=== PATIENT | female | born 1975 | race Caucasian/White ===

== ENCOUNTER → 2021-08-12 09:12 | Outpatient (BNV) | payer MEDICAID, SELFPAY | PROVIDERS: PCP Student in an Organized Health Care Education/Training Program; Visit Provider Internal Medicine Medical Oncology | DX: D50.9 Iron deficiency anemia, unspecified (principal) | CPT/HCPCS: 99203; 99213 ==

== ENCOUNTER 2021-08-22 08:55 | Outpatient (REF) | payer MEDICAID, SELFPAY | END 2021-08-22 08:56 | disposition home or self-care (01) | LOC: HO.MDS 08:55 | PROVIDERS: PCP Student in an Organized Health Care Education/Training Program; Visit Provider Internal Medicine Medical Oncology | DX: D50.9 Iron deficiency anemia, unspecified (principal) | CPT/HCPCS: 96365; 96366; J1200; J1750; Q0163 ==

== ENCOUNTER 2024-02-10 10:10 | Outpatient (REF) | payer MEDICAID, SELFPAY ==
--- NOTE | ~2024-02-10 | XR_ITS ---
EXAMINATION: XR FOOT, RIGHT CLINICAL INFORMATION: Pain in right ankle and joints of foot. COMPARISON: None available. TECHNIQUE: AP, lateral, and oblique views of the right foot. FINDINGS: Postsurgical changes with metallic staple in the proximal aspect of the first proximal phalanx as well as bowing deformity of first proximal phalanx. Advanced degenerative changes with hypertrophic change and joint space narrowing particularly along the medial aspect of first metatarsophalangeal joint. Flattening along the medial aspect of first metatarsal head, possibly postsurgical in nature. Moderate degenerative changes in the second toe PIP joint. XR/XR foot RT min 3V IMPRESSION: 1. Postsurgical changes as well as bowing deformity of first proximal phalanx. Advanced degenerative changes with hypertrophic change and joint space narrowing particularly along the medial aspect of first metatarsophalangeal joint. Flattening along the medial aspect of first metatarsal head, likely postsurgical in nature. 2. Moderate degenerative changes in the second toe PIP joint.
== END 2024-02-10 10:11 | disposition home or self-care (01) ==
LOC: HO.HOSX 10:10
PROVIDERS: Visit Provider Physical Medicine & Rehabilitation
DX: S93.421A Sprain of deltoid ligament of right ankle, initial encounter (principal)
CPT/HCPCS: 73630; 99202

== ENCOUNTER 2024-02-10 10:14 | Outpatient (AMB) | payer MEDICAID, SELFPAY ==
--- NOTE | 2024-02-10 10:31 | A.OFFVIS_ITS ---
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 States she has been having pain in her ankle since September 2023. No injury she can recall. Pain is mainly on her medial and lateral aspect of ankle. Also complaining of s welling after 2 hours of being on her feet. This pain is making her walk funny and is limiting her from doing her daily activities. Patient referred by her PCP Dr Jabari De Jesus. Denies numbness or tingling however he is experiencing a burning sensation around her ankle. Patient states she prescribed medication for high cholesterol but doesnt recall medication name. Pattern Fitter Required: Yes Allergies codeine [CODEINE] Allergy (Unknown, Unverified 02/10/24 10:36) SHAKING fruit Adverse Reaction (Intermediate, Uncoded 02/10/24 10:36) Swelling Medication List - Last Reconciled 02/10/24 by Chrissy Grijalva MD levothyroxine 1 tab PO DAILY lisinopril 1 tab PO DAILY loratadine (Claritin) 10 mg PO DAILY ursodiol 1 tab PO TID HPI HPI Comments History of Present Illness Details Last September 2023, medial ankle pain, swelling. Thought overuse from being on her feet during holidays. Pain worsened though became more burning. Limited ROM on ankle when walking. After 2 hours, severe pain, burning, swelling. Starts to drag the foot. Burning numbness. No DM. No back pain. Treatment done so far: physical therapy - 10 sessions, no improvement History of right foot fracture 13 years old. History of bunionectomy more than 10 years ago. [facility] Medical History (Updated 02/10/24 @ 10:52 by Chrissy Grijalva MD) Bunion of unspecified foot Surgical History S/P ear surgery Previous section Family History Mother Diabetes High blood pressure Father Diabetes Heart attack Social History (Updated 02/10/24 @ 10:39 by Rosina Johnson [facility]) Household Members: Spouse, Family and Children Housing: Apartment Are you a primary pediatric acute care unit nurse to a significant other at home: No (mother) Do you presently have visiting nurse or other home services: No Alcohol intake: never Patient Tobacco Use Status: Never used Tobacco service: No Current occupational status: unemployed 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 MSK: Swollen and tender around right medial malleolus. Non tender on tibialis anterior tendon, achilles tendon, lateral malleolus, plantar fascia. No ankle instability. Strength is 5/5 in all muscle groups tested. No increased tone noted. Neurological: Neurologic examination of the upper and lower extremities was nonfocal with intact sensation, muscle stretch reflexes and without focal motor deficits . Benjamin?s negative bilaterally. Babinski was down going bilaterally. Clonus was negative. Gait is non-antalgic without loss of balance. Patient was able to stand on heel and toe with support. Results Reviewed Results Reviewed: I independently reviewed the results of the following: X-ray done in the office showed chronic fracture right 1st metatarsal, postsurgical changes from bunionectomy Assessment & Plan Assessment & Plan (1) Sprain of right medial ankle joint: Code(s): S93.421A - Sprain of deltoid ligament of right ankle, initial encounter Qualifiers: Encounter type: initial encounter Qualified Code(s): S93.421A - Sprain of deltoid ligament of right ankle, initial encounter Plan Right medial ankle sprain that is still showing ongoing inflammation despite therapy. Patient had undergone adequate conservative management including PT without improvement of condition. It would be reasonable to obtain further imaging such as MRI. An MRI would help rule out any serious condition, guide treatment and assess prognosis for recovery. Specifically ruling out occult fracture. Fow now, she can wear a boot for walking, if will be walking for 2 hours or more. In between, to wear compression sock. Ice and elevate. Recommended naproxen gel but she already tried at home without relief. Can try lidocaine 4% icyhot roll on, up to QID prn. Discussed instructions and side effects. Assessment and plan discussed with patient, and patient was agreeable. All questions were answered thoroughly. Follow-up after MRI. Chrissy Grijalva MD, JOSÉ MIGUEL Board Certified, [place] [employer] Physical [employer] and Rehabilitation (ABPMR) Board Certified, [place] Board of Electrodiagnostic Medicine (ABEM) Orders: Orders MR ankle RT wo con Today S93.421A - Sprain of deltoid ligament of right ankle, initial encounter Coding Level of Care Code New Pt Level 4 (49544) Diagnoses Sprain of right medial ankle joint, initial encounter S93.421A Encounter type: initial encounter
[2024-02-10 10:34] VITALS: BMI 32.9
== END 2024-02-10 10:57 | disposition home or self-care (01) ==
PROVIDERS: PCP Student in an Organized Health Care Education/Training Program; Visit Provider Physical Medicine & Rehabilitation
DX: S93.421A Sprain of deltoid ligament of right ankle, initial encounter (principal)
CPT/HCPCS: 99204

== ENCOUNTER 2024-02-11 10:32 | Outpatient (REF) | payer MEDICAID, SELFPAY ==
[2024-02-11 14:53] LABS: MANUAL DIFF FLAG NO
[2024-02-11 14:58] LABS: Basophils Percent Auto 0.7 % (0-2); Eosinophils Absolute Auto 0.3 X10*3/uL (0.0-0.4); Eosinophils Percent Auto 7.3 % (0-4); Hemoglobin 10.3 g/dl (12.0-16.0); Imm Gran Abs Auto 0.01 X10*3/uL (0.00-0.03); Imm Gran Pct Auto 0.2 % (0.0-0.4); Lymphocytes Absolute Auto 1.4 X10*3/uL (1.2-4.9); Lymphocytes Percent Auto 30.7 % (20-40); Mean Corpuscular HGB Conc 32.2 g/dl (31.0-35.0); Mean Corpuscular Hemoglobin 26.9 pg (27.0-33.0); Mean Corpuscular Volume 83.6 fL (80.0-98.0); Mean Platelet Volume 10.4 fL (9.4-12.3); Monocytes Absolute Auto 0.5 X10*3/uL (0.1-1.2); Monocytes Percent Auto 11.8 % (2-11); Neutrophils Absolute Auto 2.2 x10*3/uL (2.0-8.3); Neutrophils Percent Auto 49.3 % (45-73); Platelet Count 304 X10*3/uL (160-400); Red Blood Count 3.83 X10*6/uL (4.20-5.50); Red Cell Distribution Width 13.8 % (11.0-16.0); White Blood Count 4.4 X10*3/uL (4.8-10.8)
[2024-02-11 15:06] LABS: INTERNATIONAL NORM RATIO 0.9 (0.9-1.1); Prothrombin Time 11.1 SEC (11.1-13.3)
[2024-02-11 15:22] LABS: Alanine Aminotransferase 35 U/L (0-31); Albumin Level 3.6 g/dL (3.5-5.0); Alkaline Phosphatase 228 U/L (39-117); Anion Gap 10 (12-20); Aspartate Amino Transferase 29 U/L (5-31); Bilirubin Total 0.4 mg/dL (0.0-1.0); Blood Urea Nitrogen 17 mg/dL (9-16); Calcium 8.8 mg/dL (8.4-10.2); Carbon Dioxide 26 mmol/L (22-29); Chloride 104 mmol/L (96-108); Estimated Glomerular Filt Rate > 60; Glucose Random 90 mg/dL (60-115); Potassium 3.9 mmol/L (3.3-5.1); Sodium 136 mmol/L (135-145); Total Protein 7.8 g/dL (6.5-8.0)
[2024-02-11 15:30] LABS: TSH reflex Free T4 0.44 uIU/mL (0.32-4.0)
== END 2024-02-11 10:33 | disposition home or self-care (01) ==
LOC: HO.CHCLDS 10:32
PROVIDERS: Visit Provider Family Medicine
DX: Z01.818 Encounter for other preprocedural examination (principal)
CPT/HCPCS: 36415; 80053; 84443; 85025; 85610

== ENCOUNTER → 2024-02-16 11:06 | Outpatient (REF) | payer MEDICAID, SELFPAY ==
--- NOTE | 2024-02-16 11:16 | ECG_ITS ---
Test Reason : PRE OP Z01.818 Blood Pressure : / mmHG Vent. Rate : 071 BPM Atrial Rate : 071 BPM P-R Int : 134 ms QRS Dur : 086 ms QT Int : 406 ms P-R-T Axes : 000 028 039 degrees QTc Int : 441 ms Normal sinus rhythm Normal ECG No previous ECGs available Referred By: Mariaa Up Electronically Signed By:RICKY SMITH
== END ==
LOC: HO.CARD 11:06
PROVIDERS: PCP Student in an Organized Health Care Education/Training Program; Visit Provider Family Medicine
DX: Z01.818 Encounter for other preprocedural examination (principal)
CPT/HCPCS: 93005

== ENCOUNTER → 2024-02-16 11:16 | Outpatient (BNV) | payer MEDICAID, SELFPAY | PROVIDERS: PCP Student in an Organized Health Care Education/Training Program; Visit Provider Internal Medicine | DX: Z01.810 Encounter for preprocedural cardiovascular examination (principal) | CPT/HCPCS: 93010 ==

== ENCOUNTER 2024-03-23 15:26 | Outpatient (REF) | payer MEDICAID, SELFPAY ==
[2024-03-23 17:27] LABS: MANUAL DIFF FLAG NO
[2024-03-23 17:35] LABS: Basophils Percent Auto 0.4 % (0-2); Eosinophils Absolute Auto 0.1 X10*3/uL (0.0-0.4); Eosinophils Percent Auto 1.1 % (0-4); Hematocrit 38.6 % (37.0-47.0); Imm Gran Abs Auto 0.02 X10*3/uL (0.00-0.03); Imm Gran Pct Auto 0.3 % (0.0-0.4); Lymphocytes Absolute Auto 1.6 X10*3/uL (1.2-4.9); Lymphocytes Percent Auto 21.7 % (20-40); Mean Corpuscular HGB Conc 31.1 g/dl (31.0-35.0); Mean Corpuscular Volume 83.7 fL (80.0-98.0); Mean Platelet Volume 10.8 fL (9.4-12.3); Monocytes Absolute Auto 0.5 X10*3/uL (0.1-1.2); Monocytes Percent Auto 7.1 % (2-11); Neutrophils Percent Auto 69.4 % (45-73); Platelet Count 372 X10*3/uL (160-400); Red Blood Count 4.61 X10*6/uL (4.20-5.50); Red Cell Distribution Width 13.4 % (11.0-16.0); White Blood Count 7.2 X10*3/uL (4.8-10.8)
[2024-03-23 18:10] LABS: Cholesterol 256 mg/dL (<200); HDL Cholesterol 80 mg/dL (>40); Iron 123 mcg/dL (30-160); LDL Cholesterol Calculated 156 mg/dL (<100); Percent Iron Saturation 28 % (15-50); Total Iron Binding Capacity 447 mcg/dL (228-428); Triglycerides 103 mg/dL (<150); Unsaturated Iron Binding 324 ug/dL
[2024-03-23 18:16] LABS: Ferritin 22 ng/mL (10-250)
[2024-03-23 18:31] LABS: Folate 5.2 ng/mL (> or = 4.0); Vitamin B12 508 pg/mL (200-900)
== END 2024-03-23 15:27 | disposition home or self-care (01) ==
LOC: HO.CHCLDS 15:26
PROVIDERS: Visit Provider Pediatrics
DX: D64.9 Anemia, unspecified (principal)
CPT/HCPCS: 36415; 80061; 82607; 82728; 82746; 83540; 85025

== ENCOUNTER 2024-04-17 10:38 | Outpatient (REF) | payer MEDICAID, SELFPAY ==
--- NOTE | ~2024-04-17 | MR_ITS ---
EXAMINATION: MR ANKLE WITHOUT CONTRAST, RIGHT CLINICAL INFORMATION: Medial-sided right ankle pain. Evaluate for occult fracture. Deltoid ligament sprain. COMPARISON: None available. TECHNIQUE: MRI of the ankle was performed using routine sequences on a high-field scanner. FINDINGS: BONE AND ARTICULAR CARTILAGE: Posterior tibial plafond articular cartilage thinning with areas of full-thickness loss and subchondral cystic change. Small marginal osteophytes. No talar osteochondral lesion. Mild patchy marrow edema within the inferior aspect of the anterior calcaneal process, which could represent stress reactions versus osseous contusions. No fracture. Similar patchy marrow edema within the plantar aspect of the navicula. Normal tarsal alignment. No concerning lytic or blastic osseous lesion. ACHILLES TENDON: Mild thickening of the distal Achilles tendon with minimally increased intrasubstance T2 signal consistent chronic tendinosis. No measurable tear. OTHER TENDONS: Fluid within the posterior tibialis tendon sheath and flexor digitorum tendon sheath, consistent with tenosynovitis. Thickening and mild heterogeneity of the distal posterior tibialis tendon consistent with chronic tendinosis. No transverse tendon tear or tendon retraction. LIGAMENTS: No edema adjacent to the medial or lateral ligaments to suggest acute ligament injury. JOINT FLUID AND SOFT TISSUES: Small tibiotalar, subtalar, and talonavicular joint effusions. Circumferential subcutaneous edema. No soft tissue mass or organized fluid collection. PLANTAR FASCIA: Intact. SINUS TARSI AND TARSAL TUNNEL: Patent. MR/MR ankle RT wo con IMPRESSION: 1. Mild patchy marrow edema within the inferior aspect of the anterior process of the calcaneus as well as within the plantar aspect of the navicula. Findings could represent stress reactions versus osseous contusions. No associated fracture line. 2. Mild tibiotalar osteoarthritis. Small tibiotalar, subtalar, and talonavicular joint effusions. 3. Posterior tibialis and flexor digitorum tenosynovitis with chronic distal posterior tibialis tendinosis. No transverse tendon tear or tendon retraction. 4. Mild distal Achilles tendinosis without a measurable tear. 5. Circumferential subcutaneous edema.
== END 2024-04-17 10:39 | disposition home or self-care (01) ==
LOC: HO.MRI 10:38
PROVIDERS: PCP Student in an Organized Health Care Education/Training Program; Visit Provider Physical Medicine & Rehabilitation
DX: S93.421A Sprain of deltoid ligament of right ankle, initial encounter (principal)
CPT/HCPCS: 73721

== ENCOUNTER 2024-11-08 13:02 | Outpatient (AMB) | payer MEDICAID, SELFPAY ==
[2024-11-08 13:05] VITALS: BP 132/64; PULSE 78; O2SAT 98; BMI 35.5
--- NOTE | 2024-11-08 13:05 | MHC.OFFVIS ---
Vital Signs 11/08/24 13:05 Height 5 ft 4 in Weight 206 lb 12.697 oz BMI 35.5 BP 132/64 Blood Pressure Location Rt brachial Position Sitting Pulse 78 Pulse Source Pulse Oximeter Pulse Oximetry (%) 98 Oxygen Delivery Method Room Air Intake Visit Reasons: Colonoscopy consult -- Per Dr. Mota Intake Note: NEW PATIENT Reason; [place] scrn Prior hx of colo/egd? 5 years ago via [facility] per pt. Concerns/Questions? No significant concerns per pt. Liquefied Petroleum Gasfitter Required: Yes Liquefied Petroleum Gasfitter Services: Liquefied Petroleum Gasfitter Present Liquefied Petroleum Gasfitter Name: Tay [id number] Information Interpreted: non-clinical & clinical Accompanied by: Self / Same As Patient Allergies apple Allergy (Intermediate, Verified 11/08/24 13:12) Swelling avocado Allergy (Unknown, Verified 11/08/24 13:12) Unknown banana Allergy (Unknown, Verified 11/08/24 13:12) Unknown codeine [CODEINE] Allergy (Unknown, Verified 11/08/24 13:12) SHAKING HPI HPI Colonoscopy consult -- Per Dr. Mota: Details: 49 year old? female with past medical history of microcytic hypochromic anemia, primary biliary cholangitis onset in 2020, hypothyroidism, obesity is here today for pre colonoscopy screening.? Patient referred by her rn advanced. Last colonoscopy 5 years ago. History of PBC, has not followed up with GI in quite some time. Patient denies abdominal pain or discomfort. Reports occasional postprandial abdominal bloating and constipation. Patient denies any family history of CRC.? Denies history of difficulty with sedation or anesthesia in the past.? Negative for history of sleep apnea.? Denies any history of cardiac, renal, pulmonary, or hepatic disease.?? No history of infectious? diseases like hepatitis A, B, C, HIV or tuberculosis.? Patient is not on any anticoagulation [facility] Medical History (Updated 11/08/24 @ 13:46 [facility] Family history of diabetes mellitus Hypothyroidism (09/16/12) Primary biliary cholangitis (07/08/21) Right heart failure (09/16/12) Bunion of unspecified foot Surgical History S/P ear surgery Previous section Family History Mother Diabetes High blood pressure Father Diabetes Heart attack Social History Household Members: Spouse, Family and Children Housing: Apartment Are you a primary tire care manager to a significant other at home: No (mother) Do you presently have visiting nurse or other home services: No Alcohol intake: never Patient Tobacco Use Status: Never used Tobacco service: No Current occupational status: unemployed 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 Review of Systems Const Denies weight gain and Denies weight loss ENT Reports no additional complaints, Denies dysphagia and Denies odynophagia Card Reports no additional complaints Resp Reports no additional complaints GI Denies abdominal pain, Denies belching, Denies melena, Denies bloating, Denies change in bowel habits, Reports constipation, Denies dysphagia, Denies excessive flatus, Denies dyspepsia, Denies heartburn, Denies diarrhea, Denies loose stools, Denies nausea, Denies odynophagia and Denies vomiting Reports no additional complaints Musc Reports no additional complaints Neuro Reports no additional complaints Psych Reports no additional complaints Endo Reports no additional complaints Physical Exam Vital Signs: Last Vital Signs Pulse 78 11/08/24 13:05 BP 132/64 11/08/24 13:05 Pulse Ox 98 11/08/24 13:05 Oxygen Delivery Method Room Air 11/08/24 13:05 BMI result Body Mass Index 35.5 Const General: healthy appearing and no acute distress Nutritional Appearance: obese Orientation/consciousness: patient oriented x3 Resp Effort & Inspection: normal respiratory effort, able to speak in complete sentences, no tracheal deviation and symmetric chest movement Auscultation: clear to auscultation bilaterally Cardio Rate: regular rate GI Inspection: Yes normal to inspection and No distended Palpation (GI): Soft to palpation, not firm, nontender and No hepatosplenomegaly present Auscultation: normal bowel sounds General: Yes no CVA tenderness Back/Spine/Pelvis Back: no CVA tenderness Skin General skin exam: elasticity normal, turgor normal and dry skin Neuro General: patient oriented x3 Psych Appearance: grossly normal Mental Status: mental status grossly normal Assessment & Plan Assessment & Plan (1) Screen for colon cancer: Code(s): Z12.11 - Encounter for screening for malignant neoplasm of colon (2) Family history of diabetes mellitus: Code(s): Z83.3 - Family history of diabetes mellitus Category: Medical (3) Primary biliary cholangitis: Onset Date: 07/08/21 Code(s): K74.3 - Primary biliary cirrhosis Category: Medical (4) Microcytic hypochromic anemia: Code(s): D50.9 - Iron deficiency anemia, unspecified Category: Medical Plan Patient denies any cardiac or respiratory symptoms.? Denies any issues with anesthesia in the past.? Denies any history of sleep apnea.? No history infectious diseases in the past or present.? Not on any anticoagulation therapy.? No family or personal history of colon cancer.? History of PBC, has not followed up with GI for quite some time. Will order liver profile, liver fibrosis panel as well as ultrasound with elastography to evaluate. Patient is currently on ursodiol can continue that. New refill sent. Patient is on Wegovy for weight loss. Patient denies melena, hematochezia, unintentional weight loss or ribbon like stools.? Discussed at length the pre-procedure,? prep, diet & medications as well as what to expect prior, during and after the procedure.?? Stressed the importance of good bowel prep.? Recommended the use of Vaseline or Calmoseptine OTC & baby wipes with bowel movements to promote comfort.? ?Patient verbalizes understanding and agrees to plan of care.? She was given the opportunity to ask questions and all questions answered.? We will see her after the procedure.? Orders: Orders Liver Panel 11/08/24 R74.01 - Elevation of levels of liver transaminase levels US abdomen comp w elastography 11/08/24 R79.89 - Other specified abnormal findings of blood chemistry Liver Fibrosis Pnl 11/08/24 K76.0 - Fatty (change of) liver, not elsewhere classified Hemoglobin A1c 11/08/24 Z83.3 - Family history of diabetes mellitus Medications: New polyethylene glycol 3350 (Miralax) As directed by gastroenterology department at [facility] 238 grams PO ONCE 238 grams 0RF Z12.11 - Encounter for screening for malignant neoplasm of colon bisacodyl (Dulcolax (bisacodyl)) 10 mg (2 x 5 mg) PO BEDTIME 180 tabs 4RF Coding Level of Care Code New Pt Level 4 (97060) Diagnoses Screen for colon cancer Z12.11 Family history of diabetes mellitus Z83.3 Primary biliary cholangitis K74.3 Microcytic hypochromic anemia D50.9 Time Spent (min) 45 Comment 30 minutes spent with patient and additional 15 minutes spent reviewing her records
== END 2024-11-08 14:21 | disposition home or self-care (01) ==
PROVIDERS: PCP Student in an Organized Health Care Education/Training Program; Visit Provider Nurse Practitioner Family
DX: Z01.818 Encounter for other preprocedural examination (principal); Z12.11 Encounter for screening for malignant neoplasm of colon; K74.3 Primary biliary cirrhosis; D50.9 Iron deficiency anemia, unspecified
CPT/HCPCS: 99202

== ENCOUNTER 2024-11-08 13:02 | Outpatient (REF) | payer MEDICAID, SELFPAY ==
[2024-11-08 14:39] LABS: Estimated Average Glucose 117 mg/dL; Hemoglobin A1C 104.9518 umol/L; Hemoglobin A1c % 5.7 % (<6.0); Total Hemoglobin (HGBA1C) 2741.6035 umol/L
[2024-11-08 15:00] LABS: Alanine Aminotransferase 58 U/L (0-31); Albumin Level 3.8 g/dL (3.5-5.0); Alkaline Phosphatase 250 U/L (39-117); Aspartate Amino Transferase 48 U/L (5-31); Bilirubin Direct 0.2 mg/dL (0.0-0.5); Bilirubin Total 0.4 mg/dL (0.0-1.0)
[2024-11-14 17:28] LABS: FIB-ALT 43 U/L (6-29); FIB-Alpha-2-Macroglobulin 193 mg/dL (106-279); FIB-Apolipoprotein A1 186 mg/dL (101-198); FIB-GGT 43 U/L (3-70); FIB-Haptoglobin 193 mg/dL (43-212); FIB-Total Bilirubin 0.4 mg/dL (0.2-1.2); Liver Fibrosis Score 0.09; Liver Fibrosis Stage F0; Nec Inflam Act Grade A0-A1; Nec Inflam Act Score 0.19; Reference ID 5285368
== END 2024-11-08 13:03 | disposition home or self-care (01) ==
LOC: HO.LAB 13:02
PROVIDERS: PCP Student in an Organized Health Care Education/Training Program; Visit Provider Nurse Practitioner Family
DX: R74.01 Elevation of levels of liver transaminase levels (principal); K76.0 Fatty (change of) liver, not elsewhere classified; Z83.3 Family history of diabetes mellitus; K74.01 Hepatic fibrosis, early fibrosis; Z12.11 Encounter for screening for malignant neoplasm of colon
CPT/HCPCS: 36415; 80076; 81596; 83036; 99212

== ENCOUNTER 2024-11-22 09:18 | Outpatient (REF) | payer MEDICAID, SELFPAY ==
--- NOTE | ~2024-11-22 | US_ITS ---
EXAMINATION: US ABDOMEN COMPLETE WITH LIVER ELASTOGRAPHY HISTORY: R79.89 - Other specified abnormal findings of blood chemistry TECHNIQUE: Real-time grayscale ultrasound imaging of the abdomen was performed and images were reviewed. COMPARISON: There are no prior studies for comparison. FINDINGS: Liver: The liver is normal in size and demonstrates homogeneous echotexture. No focal mass or intrahepatic biliary ductal dilatation is identified. There is normal hepatopedal flow in the portal vein. Ultrasound elastography of the liver was performed with 10 separate measurements of the liver parenchyma with the patient in the supine position. Measurements were obtained approximately 2 cm below Anthony's capsule and perpendicular to the capsule. Images are of satisfactory quality. The median shear wave velocity is 1.40 m/s. The interquartile range/median (IQR/median) is 0.26. Gallbladder and biliary tree: The gallbladder is unremarkable, without evidence of calculi, wall thickening, or pericholecystic fluid. There is no sonographic Hewitt sign. The common bile duct is normal in caliber measuring 3 mm. Kidneys: The right kidney measures 11.4 cm in length. The left kidney measures 12.3 cm in length. The kidneys are unremarkable, without evidence of masses, hydronephrosis, or calculi. Pancreas: The pancreatic head, neck, and body are unremarkable. The pancreatic tail is obscured by bowel gas. Spleen: The spleen is normal in size and contour, measuring 10.1 cm in length. Abdominal aorta and inferior vena cava: The visualized portions of the abdominal aorta and inferior vena cava are normal in caliber. There is no free fluid in the abdomen. US/US abdomen comp w elastography IMPRESSION: Unremarkable abdominal ultrasound. The median shear wave velocity is 1.40 m/s, corresponding to a median liver stiffness of 5.9 kPa. The IQR/median value is 0.26. This is indicative of a poor quality data set, and the estimated liver stiffness may be unreliable. Findings are indicative of a low elastography value which rules out advanced chronic liver disease in asymptomatic patients. REFERENCE: Society of Radiologists in Ultrasound Liver Stiffness Thresholds (2020): LIVER STIFFNESS THRESHOLDS: *Shear wave velocity less than 1.3 m/s (Liver Stiffness equal or less than 5 kPa): High probability of being normal. *Shear wave velocity less than 1.7 m/s (Liver Stiffness less than 9 kPa): In the absence of other known clinical signs, rules out compensated advanced chronic liver disease. *Shear wave velocity between 1.7-2.1 m/s (Liver Stiffness 9-13 kPa): Suggestive of compensated advanced chronic liver disease but need further test for confirmation. *Shear wave velocity between 2.1-2.4 m/s (Liver Stiffness 13-17 kPa): Rules in compensated advanced chronic liver disease. *Shear wave velocity greater than 2.4 m/s (Liver Stiffness over 17 kPa): Suggestive of clinically significant portal hypertension. QUALITY OF DATA SET: *IQR/Median value equal or less than 0.15 implies a quality data set. *IQR/Median value over 0.15 implies a poor quality data set. SIGNIFICANT CHANGE FROM PRIOR EXAM: Significant change if liver stiffness measurement is 10% or greater from prior exam. OTHER CONSIDERATIONS: The stage of liver fibrosis may be overestimated in the setting of acute hepatitis, liver inflammation, elevated liver function tests, hepatic vascular congestion, obstructive cholestasis, non-fasting state, and infiltrative diseases such as amyloidosis and lymphoma. In some patients with NAFLD, the liver stiffness thresholds for compensated advanced chronic liver disease may be lower. In causes other than viral hepatitis and NAFLD, liver stiffness thresholds are not well established. Electronically signed by: Danny Caicedo MD 11/23/2024 07:36 [facility]
== END 2024-11-22 09:19 | disposition home or self-care (01) ==
LOC: HO.US 09:18
PROVIDERS: PCP Student in an Organized Health Care Education/Training Program; Visit Provider Nurse Practitioner Family
DX: R79.89 Other specified abnormal findings of blood chemistry (principal)
CPT/HCPCS: 76700; 76981

== ENCOUNTER → 2024-11-22 09:21 | Outpatient (BNV) | payer MEDICAID, SELFPAY | PROVIDERS: PCP Student in an Organized Health Care Education/Training Program; Visit Provider Radiology Diagnostic Radiology | DX: R79.89 Other specified abnormal findings of blood chemistry (principal) | CPT/HCPCS: 76700 ==

== ENCOUNTER 2024-11-27 10:58 | Outpatient (REF) | payer MEDICAID, SELFPAY ==
[2024-11-27 14:50] LABS: Alanine Aminotransferase 55 U/L (0-31); Albumin Level 3.7 g/dL (3.5-5.0); Anion Gap 13 (12-20); Aspartate Amino Transferase 54 U/L (5-31); Bilirubin Direct 0.3 mg/dL (0.0-0.5); Bilirubin Total 0.7 mg/dL (0.0-1.0); Blood Urea Nitrogen 12 mg/dL (9-16); Calcium 9.1 mg/dL (8.4-10.2); Carbon Dioxide 24 mmol/L (22-29); Chloride 104 mmol/L (96-108); Cholesterol 266 mg/dL (<200); Estimated Glomerular Filt Rate > 60; Glucose Random 86 mg/dL (60-115); HDL Cholesterol 90 mg/dL (>40); LDL Cholesterol Calculated 164 mg/dL (<100); Potassium 3.9 mmol/L (3.3-5.1); Sodium 137 mmol/L (135-145); Total Protein 8.3 g/dL (6.5-8.0); Triglycerides 64 mg/dL (<150)
[2024-11-27 14:56] LABS: Alkaline Phosphatase 272 U/L (39-117)
[2024-11-27 15:14] LABS: TSH reflex Free T4 5.74 uIU/mL (0.32-4.0)
--- OUTSIDE RECORDS SUMMARY | 2024-11-27 15:52 | XMS_ITS | Encounter Summary ---
Author Organization [email or web address] Address [address] [place] [address] Care Team Providers Care Circle Shear Operator Name Role Phone Lisandra Barboza MD Primary Care Provider [phone] Encounter Details Date Type Department Care Team ([facility] Contact Info) Description 11/21/2024 10:[address] [facility] PEDS [address] [place] [address] Lisandra Barboza MD [address] [place] [address] Class 1 obesity (Primary Dx); Primary hypertension; Hypothyroidism, unspecified type Social History Tobacco Use Types Packs/Day Years Used Date Smoking Tobacco: Never Smokeless Tobacco: Never Alcohol Use Standard Drinks/Week Comments Never 0 (1 standard drink = 0.6 oz pur e alcohol) Depression Answer Date Recorded Patient Health Questionnaire-9 Score 1 03/25/2023 Housing Stability Answer Date Recorded What is your housing situation today? I have [employer] 07/11/[address] you li ve. Do you have problems with any of the following? None of the above 07/11/2024 Food Insecurity Answer Date Recorded Within the past 12 months, y ou worried that your food would run out before you got money to buy more: Never True 07/11/2024 Within the past 12 months,th e food you bought just didn't last and you didn't have enough money to get more: Never True 08/2024 Transportation Answer Date Recorded In the past 12 months, has l ack of transportation kept you from medical appts, meetings, work or from getting things needed for daily living? No 07/11/2024 Utilities Answer Date Recorded In the past 12 months, has t he electric, gas, oil or water company threatened to shut off services in your home? No 07/11/2024 Depression Answer Date Recorded Patient Health Questionnaire-2 Score 0 03/25/2023 Internet Access Answer Date Recorded Internet Access Q1 Yes 07/11/2024 Internet Access Q2 Not on file 07/11/2024 Comments Unknown Sex and Gender Information Value Date Recorded Sex Assigned at Female 08/31/2022 10:18 AM EDT Legal Sex Female 10:18 AM EDT Gender Identity Female 08/31/2022 10:18 AM EDT Sexual Orientation Straight 08/31/2022 10 :18 AM EDT documented as of this encounter Progress Notes * Lisandra Barboza MD - 11/21/2024 10:00 AM EST Subjective Patient ID: Chiquis Lopez is a 49 y.o. female who presents for No chief complaint on file.. Hypertension This is a chronic problem. The current episode started more than 1 year ago. The problem is unchanged. The problem is controlled. Pertinent negatives include no anxiety, blurred vision, chest pain, headaches, neck pain, orthopnea, palpitations, peripheral edema, PND, shortness of breath or sweats. Past treatments include KELSYE inhibitors and diuretics. Review of Systems Eyes: Negative for blurred vision. Respiratory: Negative for shortness of breath. Cardiovascular: Negative for chest pain, palpitations, orthopnea and PND. Musculoskeletal: Negative for neck pain. Neurological: Negative for headaches. Objective Physical Exam Psychiatric: Mood and Affect: Mood normal. Behavior: Behavior normal. Thought Content: Thought content normal. Judgment: Judgment normal. Assessment/Plan Diagnoses and all orders for this visit: Class 1 obesity Comments: Trasitioned to Zepbound Advised low fat diet and regular exercise Reviewed indications for pharmacotherapy with patient, which is treatment for patient w/ obesity ora patient with a BMI > 27 w/ CV risk factors who have failed lifestyle modifications alone. These are always prescribed in combination with ongoing lifestyle modification; and will be titrated up from the lowest dose. Will start patient on Zepbound, given know efficacy. Reviewed mechanism of action with patient. Discussed side effects with patient: nausea, vomiting, diarrhea & risk of pancreatitis. No contraindications identified: , hx of pancreatitis, hx of medullary thyroid cancer or MEN 2. Patient has prior trial of phentermine/Topamax with (inadequate response, adverse reaction, or contraindication to phentermine with or without topiramate) Discussed calorie deficit, recommended reduction of 20-30% of maintenance calories; furniture salesperson referral offered. Recommended to decrease soda and sugary beverage consumption. Recommended at least 20 g per meal of protein to assist with satiety. Recommended at least 150 min/week of moderate intensity exercise. Pt is at high risk for cardiovascular events Primary hypertension Comments: Well controlled Advised to low fat diet Hypothyroidism, unspecified type Comments: Labs ordered today Cont Levothyroxine Other orders - Tirzepatide-Weight Management (Zepbound) 2.5 MG/0.5ML solution auto-injector; Inject 0.5 mL (2.5 mg) under the skin 1 (one) time per week. documented in this encounter Miscellaneous Notes * Addendum Note - Lisandra Barboza MD - 11/21/2024 10:00 AM ESTAddended by: LISANDRA BARBOZA on: 11/21/2024 11:16 AM Modules accepted: Orders documented in this encounter Plan of Treatment Upcoming Encounters Date Type Department Care Team (Late st Contact Info) Description 01/03/2025 11:15 AM EST Office Visit [facility] [address] [place] [address] Lisandra Barboza MD [address] [place] [address] documented as of this encounter Procedures Procedure Name Priority Date/Time Associated Diagnosis Comments TSH W/REFLEX TO FT4 Routine 11/27/2024 11:03 AM EST Hypothyroidism, unspecified type HEPATIC FUNCTION PANEL Routine 11/27/2024 11:03 AM EST Primary hypertension LIPID PANEL, STANDARD Routine 11/27/2024 11:03 AM EST Primary hypertension BASIC METABOLIC PANEL Routine 11/27/2024 11:03 AM EST Primary hypertension documented in this encounter Results * (ABNORMAL) TSH with Reflex to Free T4 (11/27/2024 11:03 AM EST) TSH reflex Free T4 5.74(H) 0.32 - 4.0 uIU/mL [facility] Blood Venous blood specimen / Unknown 11/27/2024 11:03 AM EST 11/27/2024 2:21 PM EST Lisandra Barboza MD LAB BLOOD ORDERABLES Final Resul t Performing Organization Address City/[facility] Co de Phone Number [facility] [address] [place] [phone] * (ABNORMAL) Hepatic Function Panel (11/27/2024 11:03 AM EST) Bilirubin, Total 0.7 0.0 - 1.0 mg/dL [facility] Bilirubin, Direct 0.3 0.0 - 0.5 mg/dL [facility] Aspartate Amino Transferase 54(H) 5 - 31 U/L [facility] Alanine Aminotransferase 55(H) 0 - 31 U/L [facility] Total Protein 8.3(H) 6.5 - 8.0 g/dL [facility] Albumin Level 3.7 3.5 - 5.0 g/dL [facility] Alkaline Phosphatase 272(H) 39 - 117 U/L [facility] Blood Venous blood specimen / Unknown 11/27/2024 11:03 AM EST 11/27/2024 2:21 PM EST Lisandra Barboza MD LAB BLOOD ORDERABLES Final Resul t Performing Organization Address [facility] Co de Phone Number [facility] [address] [place] [phone] * (ABNORMAL) Lipid Panel, Standard (11/27/2024 11:03 AM EST) Triglycerides 64 <150 mg/dL [facility] Comment:Desirable Triglyceri de: less than 150 mg/dLBorderline High Triglyceride 150-199 mg/dLHigh Triglyceride: 200-499 mg/dLVery High Triglyceride: greater than or equal to 5OO mg/dL Cholesterol 266(H) <200 mg/dL [facility] Comment:Desirable Cholestero l: less than 200 mg/dLBorderline High Cholesterol: 200-239 mg/dLHigh Cholesterol: greater than 239 mg/dL LDL Cholesterol Calculated 164(H) <100 mg/dL [facility] Comment:Desirable LDL: less than 100 mg/dLNear Optimal/Above Optimal LDL: 110- 129 mg/dLBorderline High LDL: 130-159 mg/dLHigh LDL: 160-189 mg/dLVery High LDL: greater than or equal to 190 mg/dL HDL Cholesterol 90 >40 mg/dL [facility] Comment:Desirable HDL: great er than 40 mg/dL Note: This HDL assay may give artificially low results in patients with liver disease. Blood Venous blood specimen / Unknown 11/27/2024 11:03 AM EST 11/27/2024 2:21 PM EST us Lisandra Barboza MD LAB BLOOD ORDERABLES Final Resul t [facility] [address] [place] [phone] * Basic Metabolic Panel (11/27/2024 11:03 AM EST) Sodium 137 135 - 145 mmol/L [facility] Potassium 3.9 3.3 - 5.1 mmol/L [facility] Chloride 104 96 - 108 mmol/L [facility] Carbon Dioxide 24 22 - 29 mmol/L [facility] Anion Gap 13 12 - 20 [facility] Urea Nitrogen (BUN) 12 9 - 16 mg/dL [facility] Creatinine, Serum 0.67 0.5 - 1.4 mg/dL [facility] Estimated Glomerular Filt Rate >60 [facility] Comment:Chronic Kidney Disea se: Estimated GFR < 60 mL/min/1.69r4Amminq Kidney Disease: Estimated GFR < 15 mL/min/1.73m2 Glucose 86 60 - 115 mg/dL [facility] Calcium 9.1 8.4 - 10.2 mg/dL [facility] Blood Venous blood specimen / Unknown 11/27/2024 11:03 AM EST 11/27/2024 2:21 PM EST us Lisandra Barboza MD LAB BLOOD ORDERABLES Final Resul t [facility] [address] [place] [phone] documented in this encounter Visit Diagnoses Diagnosis Class 1 obesity- Primary Primary hypertension Unspecified essential hypertension Hypothyroidism, unspecified type documented in this encounter Additional Health Concerns Assessment Noted Time PHQ-9 Depression Total Score: 1 03/25/20 23 11:11 AM EDT documented as of this encounter Care Teams Circle Shear Operator Relationship Specialty Start Date End Date Lisandra Barboza MD [address] [place] [phone] PCP - General Family Medicine 10/17/15 documented as of this encounter
--- OUTSIDE RECORDS SUMMARY | 2024-11-27 15:52 | XMS_ITS | Encounter Summary ---
Author Organization [employer] Address [address] [place] [address] Care Team Providers Care Pattern Chain Maker Supervisor Name Role Phone Liza Barboza MD Primary Care Provider [phone] Reason for Visit * Reason Onset Date Comments Med Refill 06/09/2024 Encounter Details Date Type Department Care Team ([facility] st Contact Info) Description 06/09/2024 Telephone [facility] [address] [place] [address] Liza Barboza MD [address] [place] [address] Med Refill Social History Tobacco Use Types Packs/Day Years Used Date Smoking Tobacco: Never Smokeless Tobacco: Never Alcohol Use Standard Drinks/Week Comments Never 0 (1 standard drink = 0.6 oz pur e alcohol) Depression Answer Date Recorded Patient Health Questionnaire-9 Score 1 03/25/2023 Housing Stability Answer Date Recorded What is your housing situation today? I have [employer] 09/06/[address] you li ve. Do you have problems with any of the following? None of the above 09/06/2023 Food Insecurity Answer Date Recorded Within the past 12 months, y ou worried that your food would run out before you got money to buy more: Never True 09/06/2023 Within the past 12 months,th e food you bought just didn't last and you didn't have enough money to get more: Never True 04/2023 Transportation Answer Date Recorded In the past 12 months, has l ack of transportation kept you from medical appts, meetings, work or from getting things needed for daily living? No 09/06/2023 Utilities Answer Date Recorded In the past 12 months, has t he electric, gas, oil or water company threatened to shut off services in your home? No 09/06/2023 Depression Answer Date Recorded Patient Health Questionnaire-2 Score 0 03/25/2023 Comments Unknown Sex and Gender Information Value Date Recorded Sex Assigned at Female 08/31/2022 10:18 AM EDT Legal Sex Female 10:18 AM EDT Gender Identity Female 08/31/2022 10:18 AM EDT Sexual Orientation Straight 08/31/2022 10 :18 AM EDT documented as of this encounter Miscellaneous Notes * Telephone Encounter - Flako Baumann - 06/09/2024 1:26 PM EDT TC from pt requesting medication refill. Medications needing refill : hydroquinone 4 % cream To be sent to: [facility]/pharmacy #[id number] [place] - [address] [place] [address] documented in this encounter Plan of Treatment Upcoming Encounters Date Type Department Care Team (Late st Contact Info) Description 01/03/2025 11:15 AM EST Office Visit [facility] [address] [place] [address] Liza Barboza MD [address] [place] [address] documented as of this encounter Visit Diagnoses Not on filedocumented in this encounter Additional Health Concerns Assessment Noted Time PHQ-9 Depression Total Score: 1 03/25/20 23 11:11 AM EDT documented as of this encounter Care Teams Pattern Chain Maker Supervisor Relationship Specialty Start Date End Date Liza Barboza MD [address] [place] [phone] PCP - General Family Medicine 10/17/15 documented as of this encounter
--- OUTSIDE RECORDS SUMMARY | 2024-11-27 15:52 | XMS_ITS | Encounter Summary ---
Author Organization [employer] Address [address] [place] [address] Care Team Providers Care Banking Teacher Name Role Phone Liza Barboza MD Primary Care Provider Reason for Visit * Reason Onset Date Comments Medication Question 11/15/2024 Encounter Details Date Type Department Care Team ([facility] Contact Info) Description 11/15/2024 Telephone [facility] MEDICINE [address] [place] [address] Liza Barboza MD [address] [place], [place] [phone] Medication Question Social History Tobacco Use Types Packs/Day Years [...] encounter Miscellaneous Notes * Telephone Encounter - Gerri Watters RN - 11/17/2024 10:33 AM EST Telehealth appt scheduled for 11/21/24 10:00 * Telephone Encounter - Liza Barboza MD - 11/17/2024 8:49 AM EST Needs appt to discuss weightloss meds * Telephone Encounter - Jai Barkley - 11/16/2024 1:07 PM EST Tc from pt requesting an inhaler and weight loss injections. Pt does speak burkinan. Call Pt: [phone] * Telephone Encounter - Gerri Watters RN - 11/15/2024 2:14 PM EST Attempted to contact patient about needing an inhaler. No answer. Unable to leave message. TC to [facility] pharmacy. Pharmacist states patient has [facility], so the Wegovy needs to be switched over to Zepbound. [facility] no longer covers Wegovy. Routing to PCP for review and advisement. * Telephone Encounter - Geraldine Dacostasus Seth - 11/15/2024 2:01 PM EST Tc from pt requesting new script for Semaglutide-Weight Management (Wegovy) 1.7 MG/0.5ML solution auto-injector and also a Inhaler (athsma pump), states sometimes has short breath. documented in this encounter Plan of Treatment Upcoming Encounters Date Type Department Care Team (Late st Contact Info) Description 01/03/2025 11:15 AM EST Office Visit [facility] PEDS [address] [place] [address] Liza Barboza MD [address] [place] [address] documented as of this encounter Visit Diagnoses Not on filedocumented in this encounter Additional Health Concerns Assessment Noted Time PHQ-9 Depression Total Score: 1 03/25/20 23 11:11 AM EDT documented as of this encounter Care Teams Banking Teacher Relationship Specialty Start Date End Date Liza Barboza MD [address] [place] [phone] PCP - General Family Medicine 10/17/15 documented as of this encounter
--- OUTSIDE RECORDS SUMMARY | 2024-11-27 15:52 | XMS_ITS | Encounter Summary ---
Author Organization [employer] Address [address] [place] [address] Care Team Providers Care Banquet Prep Cook Name Role Phone Liza Barboza MD Primary Care Provider [phone] Encounter Details Date Type Department Care Team ([facility] Contact Info) Description 10/10/2024 Orders Only [facility] [address] [place] [address] Provider, MD Izabella Social History Tobacco Use Types Packs/Day Years Used Date Smoking Tobacco: Never Smokeless Tobacco: Never Alcohol Use Standard Drinks/Week Comments Never 0 (1 standard drink = 0.6 oz pur e alcohol) Depression Answer Date Recorded Patient Health Questionnaire-9 Score 1 03/25/2023 Housing Stability Answer Date Recorded What is your housing situation today? I have [employer] 07/11/[address] you [...] AM EDT documented as of this encounter Plan of Treatment Upcoming Encounters Date Type Department Care Team (Late st Contact Info) Description 01/03/2025 11:15 AM EST Office Visit [facility] MED & PEDS [address] [place], [place] [phone] Liza Barboza MD [address] [place] [address] documented as of this encounter Procedures Procedure Name Priority Date/Time Associated Diagnosis Comments HM MAMMOGRAPHY Routine 10/07/2024 1:03 PM EST documented in this encounter Results * Hm Mammography (10/07/2024 1:03 PM EST) Anatomical Region Laterality Modality Other Historical Provider HEALTH MAINTENANCE Final Result documented in this encounter Visit Diagnoses Not on filedocumented in this encounter Additional Health Concerns Assessment Noted Time PHQ-9 Depression Total Score: 1 03/25/20 23 11:11 AM EDT documented as of this encounter Care Teams Banquet Prep Cook Relationship Specialty Start Date End Date Liza Barboza MD [address] [place] [phone] PCP - General Family Medicine 10/17/15 documented as of this encounter
--- OUTSIDE RECORDS SUMMARY | 2024-11-27 15:52 | XMS_ITS | Data Portability ---
Author Organization [place] - [facility], Allergy Address [address] [place] [id number] Assessment Encounter Date Assessment Date Assessment LastModified by Organization Details LastModified Time 07/27/2024 07/27/2024 49 year-old female with history of right sided otologic surgery and MHL presents for evaluation of recurrent right sided ear infection. Right sided otorrhea was removed today. Right TM not well visualized due to otorrhea and TM perforation/ret raction cannot be rule out. There is granulation of the right TM centrally. Left TM is intact with well-aerated middle ear space. Recommended Ciprodex BID to the right ear along with dry ear precautions. Audiometric testing performed prior to my evaluation demonstrated mixed hearing loss in right ear, worse compared to prior audiogram in 2009 and normal hearing on the left. We will plan for repeat audiometric testing in the right ear once the infection resolves. We will also arrange consult with Dr. Dean for further evaluation of the ear and MHL. [email or web address] Not available 07/27/2024 16:38:15 Plan of Treatment Reminders Order Date Submit Date Provider Last Modified By Organization Details Last Modified Time Details Appointments Otology Referral 30 2024 11:30A M AMBROSIO DEAN MD Not available Not available Not available Lab None recorded. Referral None recorded. Procedures None recorded. Surgeries None recorded. Imaging None recorded. Medication Orders Ciprodex 0.3 %-0.1 % ear drops,jean paul pension 2023 024 [facility], [address] [place] [address], [place], [place], [id number], 07/28/2024 08:33:02 Patient TargetsNo targets recorded. Patient InstructionsNo instructions recorded. Reason for Referral None Reported. Results Created Date Observation Date Name Description Value Unit Range Abnormal Flag Note LastModifiedBy Organization Detail LastModifiedTime 07/28/20 24 audio gram No observ ation record ed. [email or web address] Not Available 2023 16:17:04 Result Notes None recorded. 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 [address] [facility],[place] [address], [place], [phone], [facility] 4 14:40:40 Acute suppurative otitis media 133861082 Active [address],[place] [address], [place], [address], [facility] 4 16:06:07 Otorrhea of right ear [id number] 106 Active [address],[place] [address], [place], [address], [facility] 4 16:32:24 Problem Notes None recorded. Procedures Surgical History Date Name Laterality Status Provider Name and Address Organization Details Recorded Time 07/27/2024 Comp Audio with Tymps (39019 & 49992) completed PIYUSH CAMPOS [place], [facility] [address] [place] [address],[place] [address], [place], [address], [facility] 07/27/2024 14:39:56 Imaging Results Imaging Date Name Status LastModified by Organiz ation Details LastModified Time 07/28/2024 audiogram completed [email or web address] Information no t available 07/28/2024 16:17:04 Procedure Notes None recorded. Medical Equipment None Reported. Medications Name Sig Start Date Stop Date Status Note LastModified by Organization Details LastModified Time cyclobenzapr ine 10 mg tablet TAKE 1 TABLET (10 MG) BY MOUTH AT BEDTIME FOR 10 DAYS. active Not Available Not Available No t Available amoxicillin 500 mg capsule TOME 1 C PSULA POR V A ORAL DOS VECES AL D A POR 10 D active Not Available Not Available No t Available ketoconazole 2 % shampoo APPLY TOPICALLY 2 TIMES A WEEK active Not Available Not Available No t Available Retin-A 0.025 % topical cream APLIQUE AL DINH AFECTADA TODOS LOS D AL ACOSTARSE active Not Available Not Available No t Available hydroquinone 4 % topical cream APLIQUE AL DINH AFECTADA DOS VECES AL D A NOT COVERED BY INSURANCE active Not Available Not Available No t Available lisinopril 20 mg tablet TOME WILLIS TABLETA TODOS LOS D EN LA MA BRIANA active Not Available Not Available No t Available erythromycin 5 mg/gram (0.5 %) eye ointment APPLY 1 A SMALL AMOUNT INTO BOTH EYES FOUR TIMES A DAY APPLY TO INCISION SITES FOR 1 WEEK THEN STOP active Not Available Not Available No t Available levothyroxin e 200 mcg tablet TAKE 1 TABLET BY MOUTH BEFORE BREAKFAST. active Not Available Not Available N ot Available bisacodyl 5 mg tablet,delay ed release TAKE 2 TABLETS BY MOUTH AT BEDTIME active Not Available Not Available No t Available fluticasone propionate 50 mcg/actuatio n nasal spray,suspen ramona USE 1 SPRAY IN BOTH NOSTRILS TWICE A DAY FOR 2 MONTHS active Not Available Not Available No t Available colestipol 1 gram tablet PLEASE SEE ATTACHED FOR DETAILED DIRECTIONS active Not Available Not Available N ot Available doxycycline hyclate 100 mg tablet PLEASE SEE ATTACHED FOR DETAILED DIRECTIONS active Not Available Not Available N ot Available naproxen 500 mg tablet TOME WILLIS TABLETA DOS VECES AL D A active Not Available Not Available No t Available tobramycin 0.3 %-dexamethas one 0.1 % eye drops,suspen ramona PLACE FOUR DROPS IN THE RIGHT EAR TWICE DAILY FOR 14 DAYS active Not Available Not Available No t Available moxifloxacin 0.5 % eye drops INSTILL 1 DROP INTO BOTH EYES FOUR TIMES A DAY USE FOR 2 WEEKS THEN STOP active Not Available Not Available No t Available ciprofloxaci n 0.3 %-dexamethas one 0.1 % ear drops,suspen ramona active Not Available Not Available Not Available ursodiol 500 mg tablet TOME 1 TABLETA POR V A ORAL SHIVANI VECES AL D A active Not Available Not Available No t Available Heliocare 240 mg capsule TOME 1 C PSULA POR V A ORAL TODOS LOS D * OTC NOT CVRD*11 active Not Available Not Available Not Available diclofenac 1 % topical gel APPLY TO AREA SHIVANI VECES AL D A active Not Available Not Available No t Available Gavilax 17 gram/dose oral powder MIX 238 GRAMS IN LIQUID + TAKE BY MOUTH ONCE DIRECTED BY [facility] DEPT AT [facility] active Not Available Not Available No t Available Wegovy 1 mg/0.5 mL subcutaneous pen injector INJECT 1 mg SUBCUTANEOU SLY ONCE PER WEEK active Not Available Not Available No t Available Wegovy 0.25 mg/0.5 mL subcutaneous pen injector INJECT 0.25 MG'S SUBCUTANEOU SLY ONCE PER WEEK active Not Available Not Available No t Available Wegovy 0.5 mg/0.5 mL subcutaneous pen injector INJECT 0.5mg's SUBCUTANEOU SLY ONCE PER WEEK active Not Available Not Available No t Available Vitals None Recorded Social History None recorded. Functional Status None recorded. Mental Status None recorded. Family History Nothing Reported. Medical History No medical history recorded. Gynecological HistoryNo gynecological history recorded. Obstetrics History GPAL:G 0 P 0 0 0 0 Past Encounters Encounter ID Performer Location Encounter Start Date Encounter Closed Date Diagnosis/Indication Diagnosis SNOMED-CT Code Diagnosis ICD10 Code Diagnosis Note [id number] CARA CHANEL PA-C [facility] [address] [address] 07/27/2024 13:43:52 07/27/2024 15:42:20 Mixed conductive and sensorineural hearing loss of right ear [id number] 9105 H90.71 Audiologic al evaluation results: Right ear: {{Normal N ormal through 2 kHz Mild M oderate Mo derately-s evere Chloe re Profoun d Moderate -severe rising to #}} {{hearing sloping to a mild slopi ng to a moderate s loping to moderately severe slo ping to severe slo ping to profound f lat high frequency low frequency mid frequency cookie bite stoner curve mild mixed hearing loss#}} {{with* se nsorineura l hearing loss with condu ctive hearing loss with mixed hearing loss with}} {{excellen t good* fa ir poor no measurable }} word recognitio n. Left ear: {{Normal* Normal through 2 kHz Mild M oderate Mo derately-s evere Chloe re Profoun d}} {{hearing* sloping to a mild slopi ng to a moderate s loping to moderately severe slo ping to severe slo ping to profound f lat high frequency low frequency mid frequency cookie bite stoner curve}} {{with* se nsorineura l hearing loss with condu ctive hearing loss with mixed hearing loss with}} {{excellen t good* fa ir poor no measurable }} word recognitio n. Tympanomet ry: Right Ear:{{Type A Type As Type Ad Type C Type C, shallow & rounded Ty pe B Type B with large volume Cou ld not maintain a hermetic seal Type As ( possible perforatio n)#}} Left Ear:{{Type A* Type As Type Ad Type C Type C, shallow & rounded Ty pe B Type B with large volume Cou ld not maintain a hermetic seal}} Otorrhea of right ear 10 [id number] H92.11 Health Concerns Section Related Observation LastModified by Organization Detai ls LastModified Time None Recorded Concern Status LastModified by Organization Details LastModified Time None Recorded Advance Directives Directive None Recorded Payers Encounter Date Sequence Insurance Name Policy Number Policy Lee Covered Member ID Lee Member ID Guarantor Name 07/27/[address] [place] [address] Chiquis Lopez [id number] Chiquis Lopez Notes Date Note Type Note Provider Name and Address Organization Details Recorded Time 07/27/2024 text/html 49-year-old female presents for evaluation of recurrent right ear infection. History of mixed hearing loss in right ear and right sided otologic surgery (which she believes was to repair a TM perforation). Last seen in 2009. She reports purulent malodorous otorrhea from right ear starting 3 months ago. Since then, she endorses 4 episodes of otorrhea that occurs once a month. She has not used pharmacological treatment. Denies otalgia, otorrhagia, dizziness, or tinnitus. She reports gradual right ear hearing loss, especially for the past 5-6 years. She trialed hearing aids many years ago, but could not figure out how to adjust the volume and no longer has hearing aids. She is interested in a hearing aid consult. CARA CHANEL PA-C [address] [place] [address], [place], [address], [facility] - [facility] 07/27/2024 16:53:17 OBGyn Episode No OBEpisode recorded.
--- OUTSIDE RECORDS SUMMARY | 2024-11-27 15:52 | XMS_ITS | Encounter Summary ---
Author Organization [employer] Address [address] [place] [address] Care Team Providers Care Field Sales Representative Name Role Phone Liza Barboza MD Primary Care Provider [phone] Encounter Details Date Type Department Care Team (Latest Contact Info) Description 11/21/2024 Travel Social History Tobacco Use Types Packs/Day Years [...] Description 01/03/2025 11:15 AM EST Office Visit [facility] [address] [place] [address] Liza Braboza MD [address] [place] [address] documented as of this encounter Visit Diagnoses Not on filedocumented in this encounter Additional Health Concerns Assessment Noted Time PHQ-9 Depression Total Score: 1 03/25/20 23 11:11 AM EDT documented as of this encounter Care Teams Field Sales Representative Relationship Specialty Start Date End Date Liza Barboza MD [address] [place] [address] PCP - General Family Medicine 10/17/15 documented as of this encounter
--- OUTSIDE RECORDS SUMMARY | 2024-11-27 15:52 | XMS_ITS | Encounter Summary ---
Author Organization [employer] Address [address] [place] [address] Care Team Providers Care Circular Gang Saw Operator Name Role Phone Liza Barboza MD Primary Care Provider [phone] Reason for Referral * Consultation (Routine) - Authorized Specialty Diagnoses / Procedures Referred By Contac t Referred To Contact Allergy Diagnoses Allergic reaction, initial encounter Liza Barboza MD [address] [place] [address] Phone: tel: fax: Gurmeet Santo MD [address] [place] [address] Drive [address] [place] [address] Phone: tel: fax: Referral ID Status Reason Start Date Expiration Date Visits Requested Visits Authorized [id number] Authorized Specialty Services Required 11/14/2024 11/14/2025 12 12 Encounter Details Date Type Department Care Team ([facility] Contact Info) Description 11/14/2024 2:20 PM EST Office Visit [facility] [address] [place] [address] Liza Barboza MD [address] [place] [address] Allergic reaction, initial encounter (Primary Dx) Social History Tobacco Use Types Packs/Day Years [...] AM EDT documented as of this encounter Last Filed Vital Signs Vital Sign Reading Time Taken Comments Blood Pressure 156/88 11/14/2024 2:12 PM EST Pulse 90 11/14/2024 2:12 PM EST Temperature 36.4 ??C (97.5 ??F) 11/14/2024 2:12 PM ES T Respiratory Rate 18 11/14/2024 2:12 PM EST Oxygen Saturation 98% 11/14/2024 2:12 PM EST Inhaled Oxygen Concentration - - Weight 91.7 kg (202 lb 3.2 oz) 11/14/2024 2:12 P M EST Height - - Body Mass Index 35.26 09/21/2024 11:02 AM EST documented in this encounter Progress Notes * Liza Barboza MD - 11/14/2024 2:20 PM EST Subjective Patient ID: Chiquis Lopez is a 49 y.o. female who presents for No chief complaint on file.. Allergic Reaction This is a recurrent problem. The problem occurs intermittently. The problem is unchanged. The problem is moderate. It is unknown what she was exposed to. Pertinent negatives include no chest pain, chest pressure, coughing, diarrhea, drooling, eye itching, eye redness, eye watering, globus sensation, itching, rash, stridor, trouble swallowing, vomiting or wheezing. There is no swelling present. Past treatments include nothing. Review of Systems Constitutional: Negative. HENT: Negative for drooling and trouble swallowing. Eyes: Negative for redness and itching. Respiratory: Negative. Negative for cough, shortness of breath, wheezing and stridor. Cardiovascular: Negative for chest pain and palpitations. Gastrointestinal: Negative. Negative for diarrhea and vomiting. Genitourinary: Negative. Musculoskeletal: Negative for neck pain. Skin: Negative for itching and rash. Neurological: Negative for headaches. Objective Physical Exam Constitutional: Appearance: Normal appearance. Cardiovascular: Rate and Rhythm: Normal rate and regular rhythm. Pulses: Normal pulses. Heart sounds: Normal heart sounds. Pulmonary: Effort: Pulmonary effort is normal. Abdominal: General: Abdomen is flat. Neurological: Mental Status: She is alert. Assessment/Plan Diagnoses and all orders for this visit: Allergic reaction, initial encounter Comments: Unknown etiology Will refer to land resource specialist for allergy testing Hold lisinopril Orders: - Referral to Allergy; Future documented in this encounter Plan of Treatment Upcoming Encounters Date Type Department Care Team (Late st Contact Info) Description 01/03/2025 11:15 AM EST Office Visit [facility] [address] [place] [address] Liza Barboza MD [address] [place] [address] Scheduled Referrals Name Type Priority Associated Diagnoses Orde r Schedule Referral to Allergy Outpatient Referral Routine Allergic reaction, initial encounter Expected: 11/14/2024 (Approximate), Expires: 11/14/2025 documented as of this encounter Visit Diagnoses Diagnosis Allergic reaction, initial encounter- Primary documented in this encounter Additional Health Concerns Assessment Noted Time PHQ-9 Depression Total Score: 1 03/25/20 23 11:11 AM EDT documented as of this encounter Care Teams Circular Gang Saw Operator Relationship Specialty Start Date End Date Liza Barboza MD [address] [place] [id number] PCP - General Family Medicine 10/17/15 documented as of this encounter
--- OUTSIDE RECORDS SUMMARY | 2024-11-27 15:52 | XMS_ITS | Clinical Summary ---
Author Organization [employer] Address [address] [facility] [address] [place] [address] Care Team Providers Care Microcomputer Technician Name Role Phone Liza Barboza MD Primary Care Provider [phone] Allergies Active Allergy Reactions Criticality Noted Date Comments Apple Juice 01/14/2016 Other Reaction(s): Lip Swelling, MOUTH ITCHY,SWELLING Codeine Palpitations Low 03/25/2023 Medications Polypodium Leucotomos (Heliocare) 240 MG capsuleIndicat ions:Melasma TOME WILLIS CAPSULA TODOS LOS BHAT 30 capsule 3 07/09/20 23 Active acetaminophen (Tylenol Extra Strength) 500 MG tablet Take 2 tablets (1,000 mg) by mouth every 8 (eight) hours if needed for mild pain. 60 tablet 09/27/20 23 Active Diclofenac Sodium (Voltaren) 1 % gel Apply to area TID 100 g 3 10/19/20 23 Active lisinopril 20 MG tabletIndicati ons:Chronic right-sided heart failure (CMS/HCC) TOME WILLIS TABLETA TODOS LOS BHAT EN LA MANANA 90 tablet 3 12/02/19 24 Active naproxen (Naprosyn) 500 MG tablet TOME WILLIS TABLETA DOS VECES AL JANIS 60 tablet 02/04/20 24 Active colestipol (Colestid) 1 g tablet Take 1 g by mouth in the morning. Take at least 1 hour after or 4 hours before other medications. Active levothyroxine (Synthroid) 200 MCG tablet Take 1 tablet (200 mcg) by mouth before breakfast. 30 tablet 11 04/18/20 24 025 Active cyclobenzaprin e (Flexeril) 10 MG tablet Take 1 tablet (10 mg) by mouth at bedtime for 10 days. 20 tablet 04/18/20 24 Active ursodiol (Actigall) 500 MG tablet TAKE 1 TABLET BY MOUTH THREE TIMES A DAY FOR 90 DAYS 270 tablet 3 05/03/20 24 Active fluticasone (Flonase) 50 MCG/ACT nasal spray USE 1 SPRAY IN BOTH NOSTRILS TWICE A DAY FOR 2 MONTHS 48 mL 3 05/26/20 24 Active hydroquinone 4 % creamIndicatio ns:Melasma Apply topically 2 times daily. 30 mL 3 06/13/20 24 025 Active tretinoin (Retin-A) 0.025 % creamIndicatio ns:Melasma Apply topically at bedtime. 45 g 11 06/13/20 24 025 Active ketoconazole (NIZOral) 2 % shampooIndicat ions:Seborrhei c dermatitis Apply topically 2 (two) times a week. 120 mL 3 09/14/20 24 Active Tirzepatide-We ight Management (Zepbound) 2.5 MG/0.5ML solution auto-injector Inject 0.5 mL (2.5 mg) under the skin 1 (one) time per week. 2 mL 3 11/21/19 25 Active albuterol 108 (90 Base) MCG/ACT inhaler Inhale 2 puffs every 4 (four) hours if needed for wheezing. 18 g 11/21/19 25 026 Active Polypodium Leucotomos (Heliocare) 240 MG capsule One cap a day 30 capsule 2 06/13/20 24 025 Discontinued(Du plicate order (will not trigger notification to Pharmacy)) Semaglutide-We ight Management (Wegovy) 0.25 MG/0.5ML solution auto-injector Inject 0.25 mg under the skin 1 (one) time per week. 0.5 mL 3 07/19/20 24 025 Discontinued Semaglutide-We ight Management (Wegovy) 0.5 MG/0.5ML solution auto-injector Inject 0.5 mg under the skin 1 (one) time per week. 0.5 mL 3 08/31/20 24 025 Discontinued Semaglutide-We ight Management (Wegovy) 1 MG/0.5ML solution auto-injector Inject 0.5 mL (1 mg) under the skin 1 (one) time per week. 0.5 mL 3 09/21/20 24 025 Discontinued Tirzepatide-We ight Management (Zepbound) 2.5 MG/0.5ML solution auto-injector Inject 0.5 mL (2.5 mg) under the skin 1 (one) time per week. 2 mL 3 11/21/19 25 025 Discontinued Active Problems Problem Noted Date Diagnosed Date Class 1 obesity 02/11/2024 Hypertension 02/11/2024 Perforation of right tympanic membrane Assessment & Plan (02/11/2024 10:38 AM EDT): Visible perforation in right ear and Otitis externa, referring to ENT for further investigation. Prescribing Amoxicillin 500 MG. Relevant Medication: Amoxicillin (amoxil) 500 MG Tablet Preop examination 02/11/2024 Assessment & Plan (02/15/2024 1:19 PM EDT): Patient was seen for pre-operative evaluation. Patient reports no symptoms of CP at rest or with exertion, dyspnea at rest or with exertion, PND, LE edema, claudication, or palpitations. Patient has no hx of ischemic heart disease, CHF, CVD, diabetes, recent anticoagulant or antithrombotic use, person or family hx of coagulopathy. Patient reports no history of stress test, cardiac cath or coronary revascularization. Patients without any known cardiac risk factors (will undergo low risk surgery, no hx of ischemic heart disease, no h/o CVD, no h/o CHF, & no insulin dependent diabetes mellitus or known renal failure). According to the RCRI, this number of risk factors stratifies the patient to Class O, which carries a 0.4% risk of major CV complications. In this case, CV Risk is low for the intended procedure. Patient is medically cleared to proceed with intended procedure. Acute right ankle pain 09/27/2023 Assessment & Plan (09/27/2023 4:11 PM EST): -likely sprained deltoid ligament -patient educated to rest the site. Elevate while sitting/ lying, apply cold at 20 min intervals, take tylenol and apply diclofenac gel as ordered -2x previous hx of fracture. 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 Repeat reading still above JNC8 goal of <140 systolic -did not take her BP medication today. Feels overwhelmed with number of meds she's taking -f/u with PCP for further evaluation Encounters Date Type Department Care Team Description 11/27/2024 10:30 AM EST Clinical Support [facility] [address] [place] [address] Jaci Walden RN Primary hypertension 11/27/2024 Travel 11/21/2024 10:00 AM EST Telemedicine [facility] [address] [place] [address] Liza Barboza MD Class 1 obesity (Primary Dx); Primary hypertension; Hypothyroidism, unspecified type 11/21/2024 Telephone [facility] [address] [place] [address] Liza Barboza MD 11/21/2024 Travel 11/15/2024 Telephone [facility] MED[facility] [address] [place] [phone] Liza Barboza MD Medication Question 11/14/2024 2:20 PM EST Office Visit [facility] [address] [place] [phone] Liza Barboza MD Allergic reaction, initial encounter (Primary Dx) 11/13/2024 Telephone [facility] [address] [place] [address] Liza Barboza MD Nurse Triage 11/08/2024 Orders Only GENERIC EXTERNAL DATA DEPARTMENT Provider, Generic External Data 10/10/2024 Orders Only [facility] [address] [place] [address] Provider, MD Izabella 09/21/2024 11:15 AM EST Office Visit [facility] [address] [place] [address] Liza Barboza MD Eczema, unspecified type (Primary Dx); Acute cough; Class 1 obesity 09/21/2024 Travel 09/20/2024 Telephone [facility] PEDS [address] [place] [address] Liza Barboza MD chart prep 09/13/2024 Refill [facility] [address] [place] [address] Liza Barboza MD 09/12/2024 11:00 AM EST Office Visit [facility] [address] [place] [address] Zaida Cortes MD Melasma (Primary Dx); Seborrheic dermatitis 09/12/2024 Travel 09/11/2024 Telephone [facility] [address] [place] [address] Liza Barboza MD [facility] no longer covered November 01, 2024 08/31/2024 Orders Only [facility] [address] [place] [address] Liza Barboza MD 08/29/2024 Telephone [facility] [address] [place] [address] [phone] Liza Barboza MD Medication Question from Last 3 Months Immunizations Name Administration Dates Next Due Hep B, adult 06/17/2018,01/14/2016,12/13/2015 Influenza injectable quadriv alent IIV4 with preservative 07/22/2015 Influenza, IIV3, injectable 09/24/2014 Influenza, Split (incl. marilin fied surface antigen) 07/27/2011,08/18/2010,07/30/2009,2007 TD (adult), 2 Lf tetanus tox oid, preservative free, adsorbed 07/30/2005 Td (adult), unspecified 03/01/2003 Tdap 01/14/2016 Social History Tobacco Use Types Packs/Day Years Used Date Smoking Tobacco: Never Smokeless Tobacco: Never Tobacco Cessation:Counseling Given: Not Answered Alcohol Use Standard Drinks/Week Comments Never 0 [...] Orientation Straight 08/31/2022 10 :18 AM EDT Last Filed Vital Signs Vital Sign Reading Time Taken Comments Blood Pressure 148/83 11/27/2024 11:19 AM EST Pulse 90 11/14/2024 2:12 PM EST Temperature 36.4 ??C (97.5 ??F) 11/14/2024 2:12 PM ES T Respiratory Rate 18 11/27/2024 11:19 AM EST Oxygen Saturation 100% 11/27/2024 11:19 AM EST Inhaled Oxygen Concentration - - Weight 91.7 kg (202 lb 3.2 oz) 11/14/2024 2:12 P M EST Height 161.3 cm (5' 3.5 ) 09/21/2024 11:02 AM ES T Body Mass Index 35.26 09/21/2024 11:02 AM EST Plan of Treatment Upcoming Encounters Date Type Department Care Team (Late st Contact Info) Description 01/03/2025 11:15 AM EST Office Visit [facility] [address] [place] [address] Liza Barboza MD [address] [place] [address] Health Maintenance Due Date Last Done Comments CT Colonography 1973 FIT DNA/Cologuard 1973 FIT 1975 FOBT 1975 Sigmoidoscopy 1973 Pneumococcal Vaccine: Pediatrics (0 to 5 Years) and At-Risk Patients (6 to 64 Years) (1 of 2 - PCV) 1979 Alcohol/Substance Use Screening 1985 Family Planning (PISQ) 1988 Hepatitis A Vaccines (1 of 2 - Risk 2-dose series) 1992 Pap Smear 1994 Cervical Cancer Screening 2003 HPV/Cotest 2003 Zoster Vaccines (1 of 2) 2023 Depression Screening 03/25/2024 03/25/2023, 03/25/20 23 COVID-19 Vaccine ( season) 2024 04/02/2021, 03/05/2021 Influenza Vaccine (#1) 2025 5, 09/24/2014, 07/27/2011, Additional history exists Postponed from 07/02/2024 (Patient Refused) SDOH Screening 07/11/2025 07/11/2024 Tobacco Screening 09/21/2025 09/21/2024 Diabetes: Hemoglobin A1C 11/08/2025 11/08/2024, 0511/2021 DTaP/Tdap/Td Vaccines (2 - Td or Tdap) 01/13/2026 01/14/2016, 07/30/2005, 03/01/2003, Additional history exists Mammogram 10/07/2026 10/07/2024, 10/07/2024 Colonoscopy 09/14/2027 09/14/2017 Colorectal Cancer Screening 09/14/2027 Lipid Panel 03/23/2029 11/27/2024, 05/12/2023, 03/31/2023, Additional history exists RSV Patients and Patients Aged 60 years or older (1 - 1-dose 75+ series) 2048 Hepatitis B Vaccines Completed 06/17/2018, 01/14/2016, 12/13/2015 HIV Screening Completed 03/31/2023 Hepatitis C Screening Completed 03/31/2023 HIB Vaccines Aged Out No longer eligi ble based on patient's age to complete this topic HPV Vaccines Aged Out No longer eligi ble based on patient's age to complete this topic IPV Vaccines Aged Out No longer eligi ble based on patient's age to complete this topic Meningococcal Vaccine Aged Out No shilpi ernestine eligible based on patient's age to complete this topic RSV under 20 months Aged Out No longe r eligible based on patient's age to complete this topic Rotavirus Vaccines Aged Out No longer eligible based on patient's age to complete this topic Procedures Procedure Name Priority Date/Time Associated Diagnosis Comments TSH W/REFLEX TO FT4 Routine 11/27/2024 1 1:03 AM EST Hypothyroidism, unspecified type HEPATIC FUNCTION PANEL Routine 11/27/2024 11:03 AM EST Primary hypertension LIPID PANEL, STANDARD Routine 11/27/2024 11:03 AM EST Primary hypertension BASIC METABOLIC PANEL Routine 11/27/2024 11:03 AM EST Primary hypertension US ABDOMEN COMPLETE WITH ELASTOGRAPHY Routine 11/22/2024 9:41 AM EST LIVER FIBROSIS, FIBROTEST ACTITEST PANEL Routine 11/08/2024 2:23 PM EST HEPATIC FUNCTION PANEL Routine 11/08/2024 2:23 PM EST HEMOGLOBIN A1C Routine 11/08/2024 2:23 PM EST HM MAMMOGRAPHY Routine 10/07/2024 1:03 PM EST POCT RAPID COVID ANTIGEN Routine 09/21/2024 11:04 AM EST Acute cough HEPATITIS C AB W/REFL TO HCV RNA, QN, PCR Routine 03/31/2023 9:04 AM EDT Immunization overdue HIV 1 RNA, QN PCR W/RFL IRMA (RTI,PI,INTEGRASE) Routine 03/31/2023 9:04 AM EDT Immunization overdue HM COLONOSCOPY Routine 09/14/2017 from Last 3 Months or Most Recently Relevant to Health Maintenance Results * (ABNORMAL) TSH with Reflex to Free T4 (11/27/2024 11:03 AM EST) TSH reflex Free T4 5.74(H) 0.32 - 4.0 uIU/mL [facility] Blood Venous blood specimen / Unknown 11/27/2024 11:03 AM EST 11/27/2024 2:21 PM EST us Liza Barboza MD LAB BLOOD ORDERABLES Final Resul t [facility] [address] [place] [phone] * (ABNORMAL) Hepatic Function Panel (11/27/2024 11:03 AM EST) Only the most recent of2 resultswithin the time period is included. Bilirubin, Total 0.7 0.0 - 1.0 mg/dL [facility] Bilirubin, Direct 0.3 0.0 - 0.5 mg/dL [facility] Aspartate Amino Transferase 54(H) 5 - 31 U/L [facility] Alanine Aminotransferase 55(H) 0 - 31 U/L [facility] Total Protein 8.3(H) 6.5 - 8.0 g/dL [facility] Albumin Level 3.7 3.5 - 5.0 g/dL [facility] Alkaline Phosphatase 272(H) 39 - 117 U/L [facility] Blood Venous blood specimen / Unknown 11/27/2024 11:03 AM EST 11/27/2024 2:21 PM EST Liza Barboza MD LAB BLOOD ORDERABLES Final Resul t Performing Organization Address [facility] de Phone Number [facility] [address] [place] [phone] * (ABNORMAL) Lipid Panel, Standard (11/27/2024 11:03 AM EST) Triglycerides 64 <150 mg/dL [facility] Comment:Desirable Triglyceri de: less than 150 mg/dLBorderline High Triglyceride 150-199 mg/dLHigh Triglyceride: 200-499 mg/dLVery High Triglyceride: greater than or equal to 5OO mg/dL Cholesterol 266(H) <200 mg/dL [facility] Comment:Desirable Cholestero l: less than 200 mg/dLBorderline High Cholesterol: 200-239 mg/dLHigh Cholesterol: greater than 239 mg/dL LDL Cholesterol Calculated 164(H) <100 mg/dL [facility] Comment:Desirable LDL: less than 100 mg/dLNear Optimal/Above Optimal LDL: 110- 129 mg/dLBorderline High LDL: 130-159 mg/dLHigh LDL: 160-189 mg/dLVery High LDL: greater than or equal to 190 mg/dL HDL Cholesterol 90 >40 mg/dL [facility] Comment:Desirable HDL: great er than 40 mg/dL Note: This HDL assay may give artificially low results in patients with liver disease. Blood Venous blood specimen / Unknown 11/27/2024 11:03 AM EST 11/27/2024 2:21 PM EST Liza Barboza MD LAB BLOOD ORDERABLES Final Resul t Performing Organization Address [facility]/ZIP Co de Phone Number [facility] [address] [place] [phone] * Basic Metabolic Panel (11/27/2024 11:03 AM EST) Sodium 137 135 - 145 mmol/L [facility] Potassium 3.9 3.3 - 5.1 mmol/L [facility] Chloride 104 96 - 108 mmol/L [facility] Carbon Dioxide 24 22 - 29 mmol/L [facility] Anion Gap 13 12 - 20 [facility] Urea Nitrogen (BUN) 12 9 - 16 mg/dL [facility] Creatinine, Serum 0.67 0.5 - 1.4 mg/dL [facility] Estimated Glomerular Filt Rate >60 [facility] Comment:Chronic Kidney Disea se: Estimated GFR < 60 mL/min/[id number] Kidney Disease: Estimated GFR < 15 mL/min/1.73m2 Glucose 86 60 - 115 mg/dL [facility] Calcium 9.1 8.4 - 10.2 mg/dL [facility] Blood Venous blood specimen / Unknown 11/27/2024 11:03 AM EST 11/27/2024 2:21 PM EST us Liza Barboza MD LAB BLOOD ORDERABLES Final Resul t [facility] [address] [place] [address] [phone] * US Abdomen Comp w elastography (11/22/2024 9:41 AM EST) Anatomical Region Laterality Modality Abdomen Ultrasound 11/22/2024 9:41 AM EST Narrative 11/23/2024 7:38 AM EST ? [facility] ?[address] ?[place] [address] ? Ultrasound Report ? Signed ? Patient: John Abimael,Chiquis ?MR# ?? : [id number] ? : 1975 ?Acct:[id number] ? Age/Sex: 49 / F ?ADM Date: 01/22/25 ? Loc: HO.US ? Attending Dr: Latasha DUGGAN ? Ordering Physician: Latasha Walker ?? Date of Service: 11/22/24 ?? Procedure(s): US abdomen comp w elastography ?? Accession Number(s): [id number] ? cc: Latasha Walker; Liza Barboza MD ? EXAMINATION: ??US ABDOMEN COMPLETE WITH LIVER ELASTOGRAPHY ? HISTORY: R79.89 - Other specified abnormal findings of blood chemistry ? TECHNIQUE: Real-time grayscale ultrasound imaging of the abdomen was ?? performed and images were reviewed. ? COMPARISON: There are no prior studies for comparison. ? FINDINGS: ?? Liver: ??The liver is normal in size and demonstrates homogeneous ?? echotexture. ??No focal mass or intrahepatic biliary ductal dilatation ?? is identified. ??There is normal hepatopedal flow in the portal vein. ? Ultrasound elastography of the liver was performed with 10 separate ?? measurements of the liver parenchyma with the patient in the supine ?? position. ??Measurements were obtained approximately 2 cm below ?? Anthony's capsule and perpendicular to the capsule. ??Images are of ?? satisfactory quality. ? The median shear wave velocity is 1.40 m/s. ?? The interquartile range/median (IQR/median) is 0.26. ? Gallbladder and biliary tree: The gallbladder is unremarkable, without ?? evidence of calculi, wall thickening, or pericholecystic fluid. ??There ?? is no sonographic Hewitt sign. ??The common bile duct is normal in ?? caliber measuring 3 mm. ? Kidneys: ??The right kidney measures 11.4 cm in length. The left kidney ?? measures 12.3 cm in length. ??The kidneys are unremarkable, without ?? evidence of masses, hydronephrosis, or calculi. ? Pancreas: The pancreatic head, neck, and body are unremarkable. The ?? pancreatic tail is obscured by bowel gas. ? Spleen: The spleen is normal in size and contour, measuring 10.1 cm in ?? length. ? Abdominal aorta and inferior vena cava: The visualized portions of the ?? abdominal aorta and inferior vena cava are normal in caliber. ? There is no free fluid in the abdomen. ? US/US abdomen comp w elastography ?? IMPRESSION: ? Unremarkable abdominal ultrasound. ? The median shear wave velocity is 1.40 m/s, corresponding to a median ?? liver stiffness of 5.9 kPa. ??The IQR/median value is 0.26. ??This is ?? indicative of a poor quality data set, and the estimated liver ?? stiffness may be unreliable. ?? Findings are indicative of a low elastography value which rules out ?? advanced chronic liver disease in asymptomatic patients. ? REFERENCE: ?? Society of Radiologists in Ultrasound Liver Stiffness Thresholds (2020): ? LIVER STIFFNESS THRESHOLDS: ?? *Shear wave velocity less than 1.3 m/s (Liver Stiffness equal or less ?? than 5 kPa): ??High probability of being normal. ?? *Shear wave velocity less than 1.7 m/s (Liver Stiffness less than 9 ?? kPa): ??In the absence of other known clinical signs, rules out ?? compensated advanced chronic liver disease. ?? *Shear wave velocity between 1.7-2.1 m/s (Liver Stiffness 9-13 kPa): ? Suggestive of compensated advanced chronic liver disease but need ?? further test for confirmation. ?? *Shear wave velocity between 2.1-2.4 m/s (Liver Stiffness 13-17 kPa): ? Rules in compensated advanced chronic liver disease. ?? *Shear wave velocity ??greater than 2.4 m/s (Liver Stiffness over 17 ?? kPa): ??Suggestive of clinically significant portal hypertension. ? QUALITY OF DATA SET: ?? *IQR/Median value equal or less than 0.15 implies a quality data set. ?? *IQR/Median value over 0.15 implies a poor quality data set. ? SIGNIFICANT CHANGE FROM PRIOR EXAM: ?? Significant change if liver stiffness measurement is 10% or greater ?? from prior exam. ? OTHER CONSIDERATIONS: ?? The stage of liver fibrosis may be overestimated in the setting of ?? acute hepatitis, liver inflammation, elevated liver function tests, ?? hepatic vascular congestion, obstructive cholestasis, non-fasting ?? state, and infiltrative diseases such as amyloidosis and lymphoma. ??In ?? some patients with NAFLD, the liver stiffness thresholds for ?? compensated advanced chronic liver disease may be lower. ??In causes ?? other than viral hepatitis and NAFLD, liver stiffness thresholds are ?? not well established. ? Electronically signed by: ??Danny Caicedo MD ??11/23/2024 07:36 AM EST ?? RP ? Dictated By: ?Danny Caicedo MD ? Signed By: ?<Electronically signed by Danny Caicedo MD in OV> ?11/23/24 0736 ? DD/ 0941 ? TD/TT: 11/22/24 0954 ? Culture Manager: ? Procedure Note Donotuseinterpreter, Image - 11/23/2024 [place] [address] Ultrasound Report Signed Patient: Chiquis HoffmanMR# : [id number] : 1975Acct:[id number] Age/Sex: 49 / FADM Date: 11/22/24 Loc: HO.US Attending Dr: Latasha DUGGAN Ordering Physician: Latasha Walker Date of Service: 11/22/24 Procedure(s): US abdomen comp w elastography Accession Number(s): [id number] cc: Latasha Walker; Liza Barboza MD EXAMINATION: US ABDOMEN COMPLETE WITH LIVER ELASTOGRAPHY HISTORY: R79.89 - Other specified abnormal findings of blood chemistry TECHNIQUE: Real-time grayscale ultrasound imaging of the abdomen was performed and images were reviewed. COMPARISON: There are no prior studies for comparison. FINDINGS: Liver: The liver is normal in size and demonstrates homogeneous echotexture. No focal mass or intrahepatic biliary ductal dilatation is identified. There is normal hepatopedal flow in the portal vein. Ultrasound elastography of the liver was performed with 10 separate measurements of the liver parenchyma with the patient in the supine position. Measurements were obtained approximately 2 cm below Anthony's capsule and perpendicular to the capsule. Images are of satisfactory quality. The median shear wave velocity is 1.40 m/s. The interquartile range/median (IQR/median) is 0.26. Gallbladder and biliary tree: The gallbladder is unremarkable, without evidence of calculi, wall thickening, or pericholecystic fluid. There is no sonographic Hewitt sign. The common bile duct is normal in caliber measuring 3 mm. Kidneys: The right kidney measures 11.4 cm in length. The left kidney measures 12.3 cm in length. The kidneys are unremarkable, without evidence of masses, hydronephrosis, or calculi. Pancreas: The pancreatic head, neck, and body are unremarkable. The pancreatic tail is obscured by bowel gas. Spleen: The spleen is normal in size and contour, measuring 10.1 cm in length. Abdominal aorta and inferior vena cava: The visualized portions of the abdominal aorta and inferior vena cava are normal in caliber. There is no free fluid in the abdomen. US/US abdomen comp w elastography IMPRESSION: Unremarkable abdominal ultrasound. The median shear wave velocity is 1.40 m/s, corresponding to a median liver stiffness of 5.9 kPa. The IQR/median value is 0.26. This is indicative of a poor quality data set, and the estimated liver stiffness may be unreliable. Findings are indicative of a low elastography value which rules out advanced chronic liver disease in asymptomatic patients. REFERENCE: Society of Radiologists in Ultrasound Liver Stiffness Thresholds (2020): LIVER STIFFNESS THRESHOLDS: *Shear wave velocity less than 1.3 m/s (Liver Stiffness equal or less than 5 kPa): High probability of being normal. *Shear wave velocity less than 1.7 m/s (Liver Stiffness less than 9 kPa): In the absence of other known clinical signs, rules out compensated advanced chronic liver disease. *Shear wave velocity between 1.7-2.1 m/s (Liver Stiffness 9-13 kPa): Suggestive of compensated advanced chronic liver disease but need further test for confirmation. *Shear wave velocity between 2.1-2.4 m/s (Liver Stiffness 13-17 kPa): Rules in compensated advanced chronic liver disease. *Shear wave velocity greater than 2.4 m/s (Liver Stiffness over 17 kPa): Suggestive of clinically significant portal hypertension. QUALITY OF DATA SET: *IQR/Median value equal or less than 0.15 implies a quality data set. *IQR/Median value over 0.15 implies a poor quality data set. SIGNIFICANT CHANGE FROM PRIOR EXAM: Significant change if liver stiffness measurement is 10% or greater from prior exam. OTHER CONSIDERATIONS: The stage of liver fibrosis may be overestimated in the setting of acute hepatitis, liver inflammation, elevated liver function tests, hepatic vascular congestion, obstructive cholestasis, non-fasting state, and infiltrative diseases such as amyloidosis and lymphoma. In some patients with NAFLD, the liver stiffness thresholds for compensated advanced chronic liver disease may be lower. In causes other than viral hepatitis and NAFLD, liver stiffness thresholds are not well established. Electronically signed by: Danny Caicedo MD 11/23/2024 07:36 AM EST RP Dictated By: Danny Caicedo MD Signed By: <Electronically signed by Danny Caicedo MD in OV> 11/23/24 0736 DD/ 0941 TD/TT: 11/22/24 0954 Culture Manager: us [facility] External Provider IMG US PROCEDURES Final Result * (ABNORMAL) Liver Fibrosis (HCV), FibroTest-ActiTest Panel (11/08/2024 2:23 PM EST) Liver Fibrosis Score 0.09 [facility] Liver Fibrosis Stage F0 [facility] Liver Fibrosis Interpretation SEE NOTE [facility] Comment:no fibrosisFibro Maria Ines t Score (f) Metavir Score f>=0 and f<=0.21 : F0 (no fibrosis)f>0.21 and f<=0.27 : F0-F1 (no fibrosis)f>0.27 and f<=0.31 : F1 (minimal fibrosis)f>0.31 and f<=0.48 : F1-F2 (minimal fibrosis)f>0.48 and f<=0.58 : F2 (moderate fibrosis)f>0.58 and f<=0.72 : F3 (advanced fibrosis)f>0.72 and f<=0.74 : F3-F4 (advanced fibrosis)f>0.74 and f<=1.00 : F4 (severe fibrosis) Nec Inflam Act Score 0.19 [facility] Nec Inflam Act Grade A0-A1 [facility] Nec Inflam Act Interpretation SEE NOTE [facility] Comment:no activityActiTest Score (a) Metavir Score a>=0 and a<=0.17 : A0 (no activity)a>0.17 and a<=0.29 : A0-A1 (no activity)a>0.29 and a<=0.36 : A1 (minimal activity)a>0.36 and a<=0.52 : A1-A2 (minimal activity)a>0.52 and a<=0.60 : A2 (significant activity)a>0.60 and a<=0.62 : A2-A3 (significant activity)a>0.62 and a<=1.00 : A3 (severe activity) SLZ-Ktfow-8-Macroglo bulin 193 106 - 279 mg/dL [facility] FIB-Haptoglobin 193 43 - 212 mg/dL [facility] FIB-Apolipoprotein A1 186 101 - 198 mg/dL [facility] FIB-Total Bilirubin 0.4 0.2 - 1.2 mg/dL [facility] FIB-GGT 43 3 - 70 U/L [facility] FIB-ALT 43(A) 6 - 29 U/L [facility] Reference ID [id number] [facility] Footnote SEE NOTE [facility] Comment: The reliability of results is dependent on compliance withthe preanalytical and analytical conditions recommended byBioPredictive. The tests have to be deferred for: acutehemolysis, acute hepatitis, acute inflammation, extrahepatic cholestasis. The advice of a specialist should besought for interpretation in chronic hemolysis and Gilbert'ssyndrome. The test interpretation is not validated in livertransplant patients. Isolated extreme values of one of thecomponents should lead to caution in interpreting theresults. In case of discordance between a biopsy result marisela test, it is recommended to seek the advice of aspecialist. The causes of these discordances could be due toa flaw of the test or to a flaw in the biopsy: i.e. a liverbiopsy has a 33% variability rate for one fibrosis stage.FibroTest is interpretable for chronic hepatitis B and C,alcoholic and non alcoholic steatosis. ActiTest isinterpretable for chronic hepatitis B and C.The performance characteristics have been determined by[facility]. Ithas not been cleared or approved by the U.S. Food and DrugAdministration. Performance characteristics refer to theanalytical performance of the test.Quest, [employer], the associated logo, [employer] and all associated [facility] brady are theregistered trademarks of [employer]. All third partymarks - (R) and (TM) - are the property of their respectiveowners. (C) [id number] [employer]. Allrights reserved.THIS TEST WAS PERFORMED AT:[facility] [id number] JAYCOB SPENCER ??[id number] VALDIVIA MD,PHD,JOSÉ MIGUEL 11/08/2024 2:23 PM EST 11/08/2024 2:23 PM EST Generic External Data Provider LAB BLOOD ORDERAB LES Final Result Performing Organization Address [facility] Co de Phone Number [facility] [address] [place] [phone] * Hemoglobin A1c (11/08/2024 2:23 PM EST) Hemoglobin A1c 5.7 <6.0 % [facility] Comment:Hemoglobin A1C Refer ence Range Adults: 4.8 - 6.0 % Non diabetic: < 6.0 % Goal: < 7.0 %Additional Action Suggested: > 8.0 %Note: Hemoglobin A1c results are invalid for patients with abnormal amounts of HbF. Blood transfusions may impact the HbA1c concentration in the patient sample. Estimated Average Glucose 117 mg/dL [facility] Comment:eAG = Estimated ave rage glucose which is %A1C expressed asaverage glucose, using the formula of the X0W-QcezwwnLcjqpni Glucose study (ADAG), Diabetes Care, Vol.31,#8,Jun. 2007 11/08/2024 2:23 PM EST 11/08/2024 2:23 PM EST Generic External Data Provider LAB BLOOD ORDERAB LES Final Result Performing Organization Address [facility] Co de Phone Number [facility] [address] [place] [phone] * Hm Mammography (10/07/2024 1:03 PM EST) Anatomical Region Laterality Modality Other Historical Provider HEALTH MAINTENANCE Final Result * POCT Rapid Covid-19 BinaxNOW (09/21/2024 11:04 AM EST) Pathologist [facility] Rapid COVID Ag Negative QC Media Lot # [id number] Lot# Expiration Date [id number] Swab 09/21/2024 11:0 4 AM EST Liza Barboza MD POINT OF CARE TEST ENTER/EDIT OR DERABLES Final Result * HIV-1 RNA, Quantitative, Real-Time PCR with Reflex to Genotype (RTI, PI, Integrase) (03/31/2023 9:04 AM EDT) Pathologist [facility] HIV 1 RNA, QN PCR NOT DETECTED copies/mL [facility] [employer] [facility], HIV 1 RNA, QN PCR NOT DETECTED Log copies/mL [facility] [employer] [facility], Comment: REFERENCE RANGE: NOT DETECTED copies/mL ?NOT DETECTED ??Log copies/mL This test was performed using Real-Time Polymerase Chain Reaction. Reportable range is 20 to 10,000,000 copies/mL (1.30-7.00 Log copies/mL). 03/31/2023 9:04 AM EDT 03/31/2023 9:05 AM EDT Narrative [facility] - 04/03/2023 2:38 AM EDT FASTING:YES FASTING: YES Liza Barboza MD LAB BLOOD ORDERABLES Final Resul t [facility] [address], [place] [address] [employer] [facility], [address] [place] [address] * Hepatitis C Antibody with Reflex to HCV, RNA, Quantitative, Real-Time PCR (03/31/2023 9:04 AM EDT) Hepatitis C Antibody NON-REACT KUN NON-REACT KUN [employer] [place] [address] [employer] Index 0.06 <1.00 [employer] Comment: HCV antibody was non-reactive. There is no laboratory evidence of HCV infection. In most cases, no further action is required. However, if recent HCV exposure is suspected, a test for HCV RNA (test code 07085) is suggested. For additional information please refer to http://education.Frogmetrics/faq/PNM31x1 (This link is being provided for informational/ educational purposes only.) Blood Venous blood specimen / Unknown 03/31/2023 9:04 AM EDT 03/31/2023 9:05 AM EDT Narrative [facility] - 04/03/2023 2:38 AM EDT FASTING:YES FASTING: YES Liza Barboza MD LAB BLOOD ORDERABLES Final Resul t [facility] [address], [place] [address] [employer] [place] [address] [employer] [facility] [address] [place] [address] * Colonoscopy (09/14/2017) Pathologist [facility] Colonoscopy Normal Normal [place] Provider HEALTH MAINTENANCE Final Result from Last 3 Months or Most Recently Relevant to Health Maintenance Insurance [facility] C3 Care Teams Microcomputer Technician Relationship Specialty Start Date End Date Liza Barboza MD [address] [place] [phone] PCP - General Family Medicine 10/17/15
--- OUTSIDE RECORDS SUMMARY | 2024-11-27 15:52 | XMS_ITS | Encounter Summary ---
Author Organization [employer] Address [address] [address] [facility] [facility] [address] [place] [address] Care Team Providers Care Analytical Research Program Manager Name Role Phone Liza Barboza MD Primary Care Provider [phone] Encounter Details Date Type Department Care Team ([facility] Contact Info) Description 11/21/2024 Telephone C [facility] [address] [place] [address] Liza Barboza MD 505 [place] [address] Social History Tobacco Use Types Packs/Day Years [...] encounter Miscellaneous Notes * Telephone Encounter - Guerline Tran LPN - 11/21/2024 12:01 PM EST No Pa needed ready for molded goods spot picker . ----- Message from Liza Barboza MD sent at 11/21/2024 10:05 AM EST ----- Pt started on Zepbound * Telephone Encounter - Guerline Tran LPN - 11/21/2024 12:01 PM EST ----- Message from Liza Barboza MD sent at 11/21/2024 10:05 AM EST ----- Pt started on Zepbound documented in this encounter Plan of Treatment Upcoming Encounters Date Type Department Care Team (Late st Contact Info) Description 01/03/2025 11:15 AM EST Office Visit [facility] MED & PEDS [address] [facility] [place] [address] Liaz Barboza MD 505 [facility] [place] [address] documented as of this encounter Visit Diagnoses Not on filedocumented in this encounter Additional Health Concerns Assessment Noted Time PHQ-9 Depression Total Score: 1 03/25/20 23 11:11 AM EDT documented as of this encounter Care Teams Analytical Research Program Manager Relationship Specialty Start Date End Date Liza Barboza MD [address] [place] [address] PCP - General Family Medicine 10/17/15 documented as of this encounter
--- OUTSIDE RECORDS SUMMARY | 2024-11-27 15:52 | XMS_ITS | Encounter Summary ---
Author Organization [employer] Address [address] [facility] [address] 7[address] [place] [address] Care Team Providers Care Health Consultant Name Role Phone Liza Barboza MD Primary Care Provider [phone] Reason for Visit * Reason Onset Date Comments Pre-op Visit 01/31/2024 Encounter Details Date Type Department Care Team ([facility] st Contact Info) Description 01/31/2024 Telephone [facility] MEDICINE [address] [place] [address] Liza Barboza MD [address] [place], [place] [phone] Pre-op Visit Social History Tobacco Use Types Packs/Day Years Used Date Smoking Tobacco: Never Smokeless Tobacco: Never Depression Answer Date Recorded Patient Health Questionnaire-9 [...] encounter Miscellaneous Notes * Telephone Encounter - Wing Arvind RN - 01/31/2024 11:47 AM EDT Tc to Maddie, confirmed surgery information. She just faxed over lab requests and last surgeon office note. Scheduled pt for 02/[address] Teran for pre-op. Maddie verbalized understanding and agreement with plan. * Telephone Encounter - Emily Mishra - 01/31/2024 8:32 AM EDT Date of Surgery: 02/20 Surgical procedure being done: Bilateral lower eye lid punctoplasty Type of anesthesia: General Lab needed: YES EKG: YES Surgeon's name: Valerie Oshea Facility name: [facility] Surgeon's office number: [phone] Ext [phone] Surgeon's office fax number: [phone] Contact name (person you spoke with): Maddie Last office note from surgeon requested. documented in this encounter Plan of Treatment Upcoming Encounters Date Type Department Care Team ([facility] st Contact Info) Description 01/03/2025 11:15 AM EST Office Visit [facility] MED & PEDS 505 [place] [address] Liza Barboza MD [address] [place] [address] documented as of this encounter Visit Diagnoses Not on filedocumented in this encounter Additional Health Concerns Assessment Noted Time PHQ-9 Depression Total Score: 1 03/25/20 23 11:11 AM EDT documented as of this encounter Care Teams Health Consultant Relationship Specialty Start Date End Date Liza Barboza MD [address] [place] [address] PCP - General Family Medicine 10/17/15 documented as of this encounter
--- OUTSIDE RECORDS SUMMARY | 2024-11-27 15:52 | XMS_ITS | Encounter Summary ---
Author Organization [employer] Address [address] [place] [address] Care Team Providers Care Engine Repairer Service Name Role Phone Liza Barboza MD Primary Care Provider [phone] Reason for Visit * Reason Onset Date Comments c/b requested 12/27/2023 Encounter Details Date Type Department Care Team ([facility] st Contact Info) Description 12/27/2023 Telephone [facility] MEDICINE [address] [place] [address] Liza Barboza MD [address] [place], [place] [phone] c/b requested Social History Tobacco Use Types Packs/Day Years [...] encounter Miscellaneous Notes * Telephone Encounter - Mitzy Moreno RN - 01/05/2024 11:14 AM EST Noted, placed call to pt and informed of POC. Pt agrees with plan. * Telephone Encounter - Liza Barboza MD - 01/05/2024 10:27 AM EST Reviewed Notes .Will refer to Ortho for further management * Telephone Encounter - Mitzy Moreno RN - 01/05/2024 9:00 AM EST PT notes received and scanned into chart, please advise on further POC as pt did not have good outcome from PT. * Telephone Encounter - Mitzy Moreno RN - 01/04/2024 3:09 PM EST Returned call to Richard Busch regarding message below. Re requested the OV notes that were requested last call. Office states that PT did not directly indicate need for referral but recommended f/u with PCP to discuss further options. Will await notes from Chiro to be resent and scanned into chart so PCP can review and advise further POC. * Telephone Encounter - Emily Mishra - 12/31/2023 11:02 AM EST Tc from pt stating contacted Chiropractic office and they stated when they receive a call from us we just ask for an MRI referral and we never requested the notes from them, pt also stated they said they can not make a referral for MR, please contact pt for clarifications. * Telephone Encounter - Mitzy Moreno RN - 12/28/2023 12:48 PM EST Placed call to [facility] message below. Requested PT notes be faxed over for PCP review prior to ordering MRI. * Telephone Encounter - Mag Carcamo - 12/27/2023 8:25 AM EST Tc from pt requesting to speak to a nurse, states they finished physical therapy for ankle pain however pt stated they are not feeling any better and was advised by physical therapist that they recommend for pt to have a MRI. Please contact at [phone] Finnish documented in this encounter Plan of Treatment Upcoming Encounters Date Type Department Care Team (Late st Contact Info) Description 01/03/2025 11:15 AM EST Office Visit [facility] MED & PEDS [address] [place] [address] Liza Barboza MD 505 [place] [address] documented as of this encounter Visit Diagnoses Not on filedocumented in this encounter Additional Health Concerns Assessment Noted Time PHQ-9 Depression Total Score: 1 03/25/20 23 11:11 AM EDT documented as of this encounter Care Teams Engine Repairer Service Relationship Specialty Start Date End Date Liza Barboza MD [address] [place] [address] PCP - General Family Medicine 10/17/15 documented as of this encounter
--- OUTSIDE RECORDS SUMMARY | 2024-11-27 15:52 | XMS_ITS | Encounter Summary ---
Author Organization [employer] Address [address] [facility] [address] [place] [address] Care Team Providers Care Felting Machine Operator Helper Name Role Phone Liza Barboza MD Primary Care Provider [phone] Reason for Visit * Reason Comments Med Change Request Encounter Details Date Type Department Care Team ([facility] Contact Info) Description 06/13/2024 Refill [facility]C MED & PEDS [address] [place] [address] Zaida Cortes MD 505 [place] [address] Social History Tobacco Use Types Packs/Day Years [...] Description 01/03/2025 11:15 AM EST Office Visit [facility] CHC MED & PEDS 505 [place] [address] Liza Barboza MD 505 [place] [address] documented as of this encounter Visit Diagnoses Not on filedocumented in this encounter Additional Health Concerns Assessment Noted Time PHQ-9 Depression Total Score: 1 03/25/20 23 11:11 AM EDT documented as of this encounter Care Teams Felting Machine Operator Helper Relationship Specialty Start Date End Date Liza Barboza MD [address] [place] [address] PCP - General Family Medicine 10/17/15 documented as of this encounter
--- OUTSIDE RECORDS SUMMARY | 2024-11-27 15:52 | XMS_ITS | Encounter Summary ---
Author Organization [employer] Address [address] [facility] [address] [place] [address] Care Team Providers Care Locksmith Name Role Phone Liza Barboza MD Primary Care Provider [phone] Reason for Visit * Reason Onset Date Comments Nurse Triage 11/13/2024 Encounter Details Date Type Department Care Team ([facility] Contact Info) Description 11/13/2024 Telephone C [facility]S 505 [facility] [place] [address] Liza Barboza MD 505 [place] [address] Nurse Triage Social History Tobacco Use Types Packs/Day Years [...] encounter Miscellaneous Notes * Telephone Encounter - Maddie Gallo RN - 11/13/2024 12:33 PM EST Call returned to Chiquis Lopez to triage below. Reports having lip swelling, from the right side now on left. Per pt on lower lip having a sore. No pain or itching. No discharge. No fever. Elodia any contact with any new topical creams or lip balms. Still taking lisinopril daily. Pt states having vomiting x 1 episode. Pt has had 3 episodes of diarrhea. No bloody or mucus stools or vomit. Denies any difficulty with swallowing or itchy throat. Pt advised of disposition, agrees to seek [facility] orER. Reviewed [facility] operating hours and that wait times vary. Reviewed home care advise, ER precautions and reasons to call back. Protocol Used: Face Swelling (Adult) Protocol-Based Disposition: Go to ED/[facility] Now (or to Office with PCP Approval) Positive Triage Question: * Taking an KELSEY Inhibitor medicine (e.g., benazepril/LOTENSIN, captopril/CAPOTEN, enalapril/VASOTEC, lisinopril/ZESTRIL) * All higher-acuity triage questions were negative Care Advice Discussed: * Reassurance and Education - Mild Face Swelling * Reasons To Call Back - Swelling becomes red or painful to the touch - You become worse * Telephone Encounter - Eden José - 11/13/2024 11:54 AM EST Symptom: Mouth swelling and some Pain - Not From Injury Outcome: Schedule an appointment to be seen within 24 hours Reason: Caller denied all higher acuity questions The caller accepted this outcome. documented in this encounter Plan of Treatment Upcoming Encounters Date Type Department Care Team (Late st Contact Info) Description 01/03/2025 11:15 AM EST Office Visit [facility] MED & PEDS [address] [place] [address] Liza Barboza MD [address] [place] [address] documented as of this encounter Visit Diagnoses Not on filedocumented in this encounter Additional Health Concerns Assessment Noted Time PHQ-9 Depression Total Score: 1 03/25/20 23 11:11 AM EDT documented as of this encounter Care Teams Locksmith Relationship Specialty Start Date End Date Liza Barboza MD [address] [place] [address] PCP - General Family Medicine 10/17/15 documented as of this encounter
--- OUTSIDE RECORDS SUMMARY | 2024-11-27 15:53 | XMS_ITS | Encounter Summary ---
Author Organization [employer] Address [address] [facility] 7 [place] [address] Care Team Providers Care Pallet Stone Inserter Name Role Phone Liza Barboza MD Primary Care Provider [phone] Reason for Visit * Reason Onset Date Comments Med Refill 12/04/2022 Encounter Details Date Type Department Care Team ([facility] st Contact Info) Description 12/04/2022 Refill [facility] MED & PEDS [address] [place] [address] Liza Barboza MD [address] [place] [address] Acquired hypothyroidism (Primary Dx) Social History Tobacco Use Types Packs/Day Years Used Date Smoking Tobacco: Never Assessed Comments Unknown Sex and Gender Information Value Date Recorded Sex Assigned at Female 08/31/2022 10:18 AM EDT Legal Sex Female 10:18 AM EDT Gender Identity Female 08/31/2022 10:18 AM EDT Sexual Orientation Straight 08/31/2022 10 :18 AM EDT documented as of this encounter Miscellaneous Notes * Telephone Encounter - Lamont Farmer - 12/04/2022 10:05 AM EST Tc from pt requesting med refill on Levethyroxine 150 mcg tablet Please sent to [id number] [place] [phone] documented in this encounter Plan of Treatment Upcoming Encounters Date Type Department Care Team (Late st Contact Info) Description 01/03/2025 11:15 AM EST Office Visit [facility] CHC MED & PEDS [address] [place] [address] Liza Barboza MD [address] [place] [address] documented as of this encounter Visit Diagnoses Diagnosis Acquired hypothyroidism- Primary Unspecified hypothyroidism documented in this encounter Care Teams Pallet Stone Inserter Relationship Specialty Start Date End Date Liza Barboza MD [address] [place] [phone] PCP - General Family Medicine 10/17/15 documented as of this encounter
--- OUTSIDE RECORDS SUMMARY | 2024-11-27 15:53 | XMS_ITS | Encounter Summary ---
Author Organization [employer] Address [address] [place] [address] Care Team Providers Care Sales Program Manager Name Role Phone Liza Barboza MD Primary Care Provider Reason for Visit * Reason Comments Med Refill Encounter Details Date Type Department Care Team ([facility] Contact Info) Description 09/13/2024 Refill [facility] MED & PEDS [address] [place] [address] Liza Barboza MD [address] [place] [address] Social History Tobacco Use Types Packs/Day Years [...] Description 01/03/2025 11:15 AM EST Office Visit [facility] MED & PEDS 505 [place] [address] Liza Barboza MD [address] [place] [address] documented as of this encounter Visit Diagnoses Not on filedocumented in this encounter Additional Health Concerns Assessment Noted Time PHQ-9 Depression Total Score: 1 03/25/20 23 11:11 AM EDT documented as of this encounter Care Teams Sales Program Manager Relationship Specialty Start Date End Date Liza Barboza MD [address] [place] [address] PCP - General Family Medicine 10/17/15 documented as of this encounter
--- OUTSIDE RECORDS SUMMARY | 2024-11-27 15:53 | XMS_ITS | Encounter Summary ---
Author Organization [employer] Address [address] [place] [address] Care Team Providers Care Car Seat Coverer Name Role Phone Liza Barboza MD Primary Care Provider [phone] Encounter Details Date Type Department Care Team ([facility] Contact Info) Description 11/08/2024 Orders Only GENERIC EXTERNAL DATA DEPARTMENT Provider, Generic External Data Social History Tobacco Use Types Packs/Day Years [...] Description 01/03/2025 11:15 AM EST Office Visit [facility] MED & PEDS [address] [place] [address] Liza Barboza MD [address] [place] [address] documented as of this encounter Procedures Procedure Name Priority Date/Time Associated Diagnosis Comments US ABDOMEN COMPLETE WITH ELASTOGRAPHY Routine 11/22/2024 9:41 AM EST LIVER FIBROSIS, FIBROTEST ACTITEST PANEL Routine 11/08/2024 2:23 PM EST HEMOGLOBIN A1C Routine 11/08/2024 2:23 PM EST HEPATIC FUNCTION PANEL Routine 11/08/2024 2:23 PM EST documented in this encounter Results * US Abdomen Comp w elastography (11/22/2024 9:41 AM EST) Anatomical Region Laterality Modality Abdomen Ultrasound 11/22/2024 9:41 AM EST Narrative 11/23/2024 7:38 AM EST ? [facility] ?[address] ?[place] [address] ? Ultrasound Report ? Signed ? Patient: John Abimael,Chiquis ?MR# ?? : [id number] ? : 1975 ?Acct:[id number] ? Age/Sex: 49 / F ?ADM Date: 01/22/25 ? Loc: HO.US ? Attending Dr: Latasha DUGGAN ? Ordering Physician: Latasha Walker ?? Date of Service: 11/22/24 ?? Procedure(s): US abdomen comp w elastography ?? Accession Number(s): [id number] ? cc: Latasha Walker; Liza Barboza MD [...] of Radiologists in Ultrasound Liver Stiffness Thresholds (2019): ? LIVER STIFFNESS THRESHOLDS: ?? *Shear wave [...] DD/ 0941 ? TD/TT: 11/22/24 0954 ? Learning Design Specialist: ? Procedure Note Donottirsointerpreter, Image - 11/23/[address] [address] Ultrasound Report Signed Patient: Chiquis HoffmanMR# : [id number] : 1975Acct:[id number] Age/Sex: 49 / FADM Date: 11/22/24 Loc: HO.US Attending Dr: Latasha DUGGAN Ordering Physician: Latasha Walker Date of Service: 11/22/24 Procedure(s): US abdomen comp w elastography Accession Number(s): [id number] cc: Latasha Walker; Liza Barboza MD EXAMINATION: [...] 11/23/24 0736 DD/ 0941 TD/TT: 11/22/24 0954 Learning Design Specialist: us [facility] External Provider IMG US PROCEDURES Final Result * (ABNORMAL) Liver Fibrosis (HCV), FibroTest-ActiTest Panel (11/08/2024 2:23 PM EST) Liver Fibrosis Score 0.09 [facility] Liver Fibrosis Stage F0 [facility] Liver Fibrosis Interpretation SEE NOTE [facility] Comment:no fibrosisFibro Maria Ines t [...] (severe fibrosis) Nec Inflam Act Score 0.19 [facility] Nec Inflam Act Grade A0-A1 [facility] Nec Inflam Act Interpretation SEE NOTE [facility] Comment:no activityActiTest Score (a) Metavir Score a>=0 and a<=0.17 : A0 (no activity)a>0.17 and a<=0.29 : A0-A1 (no activity)a>0.29 and a<=0.36 : A1 (minimal activity)a>0.36 and a<=0.52 : A1-A2 (minimal activity)a>0.52 and a<=0.60 : A2 (significant activity)a>0.60 and a<=0.62 : A2-A3 (significant activity)a>0.62 and a<=1.00 : A3 (severe activity) WMZ-Ioupq-1-Macroglo bulin 193 106 - 279 mg/dL [facility] FIB-Haptoglobin 193 43 - 212 mg/dL [facility] FIB-Apolipoprotein A1 186 101 - 198 mg/dL [facility] FIB-Total Bilirubin 0.4 0.2 - 1.2 mg/dL [facility] FIB-GGT 43 3 - 70 U/L [facility] FIB-ALT 43(A) 6 - 29 U/L [facility] Reference ID [id number] [facility] Footnote SEE NOTE [facility] Comment: The reliability of results [...] and C.The performance characteristics have been determined by[employer] [facility]. Ithas not been cleared or approved by the U.S. Food and DrugAdministration. Performance characteristics refer to theanalytical performance of the test.[employer], [employer], the associated logo, [employer] and all associated [employer] brady are theregistered trademarks of [employer]. All third partymarks - (R) and (TM) - are the property of their respectiveowners. (C) [id number] [employer]. Allrights reserved.THIS TEST WAS PERFORMED AT:[employer] [id number] JAYCOB SPENCER ??[id number] VALDIVIA MD,PHD,JOSÉ MIGUEL 11/08/2024 2:23 PM EST 11/08/2024 2:23 PM EST Generic External Data Provider LAB BLOOD ORDERAB LES Final Result Performing Organization Address [facility] Co de Phone Number [facility] [address] [place] [phone] * (ABNORMAL) Hepatic Function Panel (11/08/2024 2:23 PM EST) Bilirubin, Total 0.4 0.0 - 1.0 mg/dL [facility] Bilirubin, Direct 0.2 0.0 - 0.5 mg/dL [facility] Aspartate Amino Transferase 48(H) 5 - 31 U/L [facility] Alanine Aminotransferase 58(H) 0 - 31 U/L [facility] Total Protein 8.0 6.5 - 8.0 g/dL [facility] Albumin Level 3.8 3.5 - 5.0 g/dL [facility] Alkaline Phosphatase 250(H) 39 - 117 U/L [facility] 11/08/2024 2:23 PM EST 11/08/2024 2:23 PM EST Generic External Data Provider LAB BLOOD ORDERAB LES Final Result Performing Organization Address [facility] Co de Phone Number [facility] [address] [place] [phone] * Hemoglobin A1c (11/08/2024 2:23 PM EST) Hemoglobin A1c 5.7 <6.0 % [facility] Comment:Hemoglobin A1C Refer ence Range Adults: 4.8 - 6.0 % Non diabetic: < 6.0 % Goal: < 7.0 %Additional Action Suggested: > 8.0 %Note: Hemoglobin A1c results are invalid for patients with abnormal amounts of HbF. Blood transfusions may impact the HbA1c concentration in the patient sample. Estimated Average Glucose 117 mg/dL [facility] Comment:eAG = Estimated ave rage glucose which is %A1C expressed asaverage glucose, using the formula of the D1T-UmybvktVvvpxqz Glucose study (ADAG), Diabetes Care, Vol.31,#8,Jun. 2007 11/08/2024 2:23 PM EST 11/08/2024 2:23 PM EST us Generic External Data Provider LAB BLOOD ORDERAB LES Final Result Performing Organization Address City/State/[facility] Co de Phone Number [facility] [address] [place] [phone] documented in this encounter Visit Diagnoses Not on filedocumented in this encounter Additional Health Concerns Assessment Noted Time PHQ-9 Depression Total Score: 1 03/25/20 23 11:11 AM EDT documented as of this encounter Care Teams Car Seat Coverer Relationship Specialty Start Date End Date Liza Barboza MD [address] [place] [phone] PCP - General Family Medicine 10/17/15 documented as of this encounter
--- OUTSIDE RECORDS SUMMARY | 2024-11-27 15:53 | XMS_ITS | Encounter Summary ---
Author Organization [employer] Address [address] [place] [address] Care Team Providers Care Saloon Keeper Name Role Phone Liza Barboza MD Primary Care Provider [phone] Encounter Details Date Type Department Care Team (Latest Contact Info) Description 11/27/2024 Travel Social History Tobacco Use Types Packs/Day [...] Description 01/03/2025 11:15 AM EST Office Visit [facility] MED & PEDS [address] [place] [address] Liza Barboza MD [address] [place] [address] documented as of this encounter Visit Diagnoses Not on filedocumented in this encounter Additional Health Concerns Assessment Noted Time PHQ-9 Depression Total Score: 1 03/25/20 23 11:11 AM EDT documented as of this encounter Care Teams Saloon Keeper Relationship Specialty Start Date End Date Liza Barboza MD [address] [place] [phone] PCP - General Family Medicine 10/17/15 documented as of this encounter
--- OUTSIDE RECORDS SUMMARY | 2024-11-27 15:53 | XMS_ITS | Encounter Summary ---
Author Organization [employer] Address [address] [place] [address] Care Team Providers Care Large Engine Assembler Name Role Phone Liza Barboza MD Primary Care Provider [phone] Reason for Visit * Reason Onset Date Comments Medication Question 08/29/2024 Encounter Details Date Type Department Care Team ([facility] Contact Info) Description 08/29/2024 Telephone [facility] MEDICINE [address] [place] [address] Liza Barboza MD [address] [place], [place] [phone] Medication Question Social History Tobacco Use Types [...] encounter Miscellaneous Notes * Telephone Encounter - Jaci Walden RN - 08/29/2024 2:53 PM EDT TC placed to pt with a developer automatic in regards to request for increase in dosage on prescribed Semaglutide-Weight Management (Wegovy) 0.25 MG/0.5ML solution auto-injector. Pt states that this has been dicussed with PCP and after one month's time the dosage would be increased to help with efficacy of the medication. Pt reminded that the GLP1 medications need to be used in combination with diet and exercise and the pt replied that the doctor knows she has problems with her foot and daily exercise is difficult. Pt informed that PCP will be made aware of request and if appropriate the pt will be contacted if prescription placed for a higher dose. * Telephone Encounter - Zaira Griffith - 08/29/2024 10:26 AM EDT Tc from pt requesting a new script for her Semaglutide-Weight Management (Wegovy) 0.25 MG/0.5ML solution auto-injector Pt will like a higher dosis and she's requesting speak to [place] or PCP documented in this encounter Plan of Treatment Upcoming Encounters Date Type Department Care Team (Late st Contact Info) Description 01/03/2025 11:15 AM EST Office Visit [facility] CH[facility] MED & PEDS [address] [place] [address] Liza Barboza MD [address] [place] [address] documented as of this encounter Visit Diagnoses Not on filedocumented in this encounter Additional Health Concerns Assessment Noted Time PHQ-9 Depression Total Score: 1 03/25/20 23 11:11 AM EDT documented as of this encounter Care Teams Large Engine Assembler Relationship Specialty Start Date End Date Liza Barboza MD [address] [place] [phone] PCP - General Family Medicine 10/17/15 documented as of this encounter
--- OUTSIDE RECORDS SUMMARY | 2024-11-27 15:53 | XMS_ITS | Clinical Summary ---
Author Organization [facility] [address] [place] [address] [place] [address] Phone Care Team Providers Care Critical Care Unit Manager Name Role Phone Liaz Barboza MD Primary Care Provider [phone] Allergies Active Allergy Reactions Criticality Noted Date Comments Codeine 05/13/2016 Medications Medication Sig Dispensed Refills Start Date End Date Status carvediloL (COREG) 25 mg tablet Take 25 mg by mouth daily. Active diclofenac (Voltaren Arthritis Pain) 1 % topical gel Place 1 g onto the skin daily. 06/01/2017 Active ibuprofen (ADVIL,MOTRIN) 600 mg tablet TAKE 1 TABLET BY MOUTH 3 TIMES A DAY 06/21/2017 Active levothyroxine sodium (TIROSINT) 100 mcg capsule Take by mouth. Active lisinopriL (PRINIVIL,ZESTRIL) 10 mg tablet Take 10 mg by mouth daily. Active ursodioL (ACTIGALL) 500 mg tablet Take 500 mg by mouth 3 times daily. Active Active Problems Problem Noted Date Diagnosed Date HTN (hypertension) 04/19/2014 Encounters Date Type Department Care Team Description 10/07/2024 10:47 AM EST - 10/07/2024 11:59 PM EST Hospital Encounter Radiology Department - [address] [phone] Encounter for screening mammogram for breast cancer Discharge Disposition: Home or Self Care from Last 3 Months Immunizations Name Administration Dates Next Due Td Tetanus diptheria (Tdvax) 7yo and older 03/01 Surgical History Surgery Date Site/Laterality Comments SECTION PROCEDURE: HISTORICAL DELIVERY; COMMENT: x 3 OTHER SURGICAL HISTORY PROCEDURE: ---- OTHER ----; COMMENT: left axillary gland removed Medical History Medical History Date Comments HTN (hypertension) DX:HTN (hyper tension) Thyroid disorder DX:Thyroid diso rder Other qfloj-uyv-gyfhk infants DX:Other ebjkj-teo-yatua infants; COMMENT: cardiomegaly dx by sonogram with PCP Family History Medical History Relation Name Comments Drug abuse Brother 1 ? overdose, 49 Other: murdered Brother 2 age 44 in 2017 Coronary artery disease Father sten t placed Diabetes Father Hypertension Mother Other: DM Mother Breast cancer Neg Hx Ovarian cancer Neg Hx Uterine cancer Neg Hx Relation Name Status Comments Brother 1 Brother 2 Brother 3 Alive Brother 4 Alive Brother 5 Alive Father Alive Mother Alive Sister 1 Alive Sister 2 Alive Sister 3 Alive Sister 4 Alive Sister 5 Alive Social History Tobacco Use Types Packs/Day Years Used Date Smoking Tobacco: Never Smokeless Tobacco: Never Alcohol Use Standard Drinks/Week Comments No 0 (1 standard drink = 0.6 oz pur e alcohol) Sex and Gender Information Value Date Recorded Sex Assigned at Not on file Gender Identity Not on file Sexual Orientation Not on file Job Start Date Occupation Industry Not on file Not on file Not on file Obstetrics History Para Term AB IAB SAB Ectopic Multiple Livin g Live Births 3 3 3 3 Date Outcome GA Total Labor Labor/2nd/3rd Weight Sex Type Anes PTL Dawn A1 A5 Name Clin Term Term Term Plan of Treatment Upcoming Encounters Date Type Department Care Team (Late st Contact Info) Description 03/13/2025 3:30 PM EDT Office Visit Obstetrics and Gynecology [address] [phone] Estefanía Arteaga, [facility] [address] [place] [address] Health Maintenance Due Date Last Done Comments Hepatitis A Vaccines (1 of 2 - Risk 2-dose series) 1992 Cervical Cancer Screening: Pap Smear 12/10/2020 12/10/2017, 12/10/2017 Colorectal Cancer Screening: Colonoscopy 10/10/2022 HIV Screening 10/10/2022 Social Influencers of Health Screening 10/10/2022 Hypertension/CHF/CAD Annual BMP Blood Test 10/13/2022 Zoster Vaccines (1 of 2) 2023 Depression Screening 03/25/2024 03/25/2023 COVID-19 Vaccine ( season) 2024 04/02/2021, 03/05/2021 Influenza Vaccine (#1) 2024 5, 09/24/2014, 07/27/2011, Additional history exists DTaP,Tdap,and Td Vaccines (4 - Td or Tdap) 01/13/2026 01/14/2016, 07/30/2005, 03/01/2003 Breast Cancer Screening 10/07/2026 10/07/20, 09/04/2023, 08/29/2022, Additional history exists Cholesterol Screening (Lipid Panel) 03/23/2029 03/23/2024, 11/03/2001 Hepatitis B Vaccines Completed 06/17/2018, 01/14/2016, 12/13/2015 Hepatitis C Screening Completed 03/31/2023 HIB Vaccines Aged Out No longer eligi ble based on patient's age to complete this topic HPV Vaccines Aged Out No longer eligi ble based on patient's age to complete this topic IPV Vaccines Aged Out No longer eligi ble based on patient's age to complete this topic MMR Vaccines Aged Out No longer eligi ble based on patient's age to complete this topic Meningococcal ACWY Vaccine Aged Out N o longer eligible based on patient's age to complete this topic Pneumococcal Vaccine: Pediatrics (0 to 5 Years) and At-Risk Patients (6 to 64 Years) Aged Out No longer eligible based on patient's age to complete this topic RSV Immunization Patients Under 20 months Aged Out No longer eligible based on patient's age to complete this topic Varicella Vaccines Aged Out No longer eligible based on patient's age to complete this topic Procedures Procedure Name Priority Date/Time Associated Diagnosis Comments MG MAMMO DIGITAL SCREENING W [place] BILAT Routine 10/07/2024 11:04 AM EST Encounter for screening mammogram for breast cancer HM HPV Routine 12/10/2017 LIPID PANEL Routine 11/03/2001 from Last 3 Months or Most Recently Relevant to Health Maintenance Results * MG Mammo Digital Screening w Eagle bilat (10/07/2024 11:04 AM EST) Anatomical Region Laterality Modality Breast Bilateral Mammography 10/09/2024 2:19 PM EST Impressions 10/09/2024 2:20 PM EST No mammographic evidence of malignancy. BREAST DENSITY: B - There are scattered areas of fibroglandular density. BI-RADS CATEGORY: 1 - NEGATIVE RECOMMENDATION: Screening bilateral mammogram is recommended in 1 year. MAMMO LOCATION: [facility], [address] [place] [address], [phone], . -------- FINAL REPORT -------- Dictated By: Rebecca Hopper Dictated Date: 10/09/2024 14:19 ET Assigned Physician: Rebecca Hopper Reviewed and Electronically Signed By: Rebecca Hopper Signed Date: 10/09/2024 14:20 ET Workstation ID: [id number] Transcribed By: Self Edit Transcribed Date: 10/09/2024 14:19 ET Narrative 10/09/2024 2:20 PM EST EXAM: Screening Mammogram CLINICAL: 49 years old, Female, routine annual exam. COMPARISON: 09/04/2023 and as far back as 08/17/2020 ?? TECHNIQUE: Bilateral MLO and CC views were obtained digitally with 3-D mammogram (digital breast tomosynthesis). Computer-aided detection was utilized in evaluation of this exam (CAD). FINDINGS: No new suspicious mass, architectural distortion, or suspicious calcifications. Procedure Note Rebecca Hopper MD - 10/09/2024 EXAM: Screening Mammogram CLINICAL: 49 years old, Female, routine annual exam. COMPARISON: 09/04/2023 and as far back as 08/17/2020 TECHNIQUE: Bilateral MLO and CC views were obtained digitally with 3-Dmammogram (digital breast tomosynthesis). Computer-aided detection wasutilized in evaluation of this exam (CAD). FINDINGS: No new suspicious mass, architectural distortion, or suspiciouscalcifications. IMPRESSION: No mammographic evidence of malignancy. BREAST DENSITY: B - There are scattered areas of fibroglandular density. BI-RADS CATEGORY: 1 - NEGATIVE RECOMMENDATION: Screening bilateral mammogram is recommended in 1 year. MAMMO LOCATION: [facility], [address] [place] [address], [id number], . -------- FINAL REPORT -------- Dictated By: Rebecca Hopper Dictated Date: 10/09/2024 14:19 ET Assigned Physician: Rebecca Hopper Reviewed and Electronically Signed By: Rebecca Hopper Signed Date: 10/09/2024 14:20 ET Workstation ID: [id number] Transcribed By: Self Edit Transcribed Date: 10/09/2024 14:19 ET Liza Barboza MD IMG BI PROCEDURES * Cervical Cancer Screening: HPV (12/10/2017) Cervical Cancer Screening: HPV negative, abstracted Historical Provider MD ROSSI MCDONALD E * Lipid panel (11/03/2001) LDL/HDL Ratio 3 1 - 4 Triglycerides 42 10 - 140 mg/dL Cholesterol 159 10 - 200 mg/dL HDL 63 32 - 96 mg/dL LDL Cholesterol 88 62 - 185 mg/dL Blood Venous blood specimen / Unknown Historical Provider LAB BLOOD ORDERAB LES from Last 3 Months or Most Recently Relevant to Health Maintenance Care Teams Critical Care Unit Manager Relationship Specialty Start Date End Date Liza Barboza MD [address] [place] [address] PCP - General 04/13/14
--- OUTSIDE RECORDS SUMMARY | 2024-11-27 15:53 | XMS_ITS | Encounter Summary ---
Author Organization [employer] Address [address] [place] [address] Care Team Providers Care Croze Cutter Name Role Phone Liza Barboza MD Primary Care Provider Reason for Visit * Reason Comments RN BP CHECK Encounter Details Date Type Department Care Team (Latest Contact Info) Description 11/27/2024 10:30 AM EST Clinical Support [facility] MED & PEDS [address] [place] [address] Jaci Walden RN Primary hypertension Social History Tobacco Use Types Packs/Day Years [...] t he electric, gas, oil or water [employer] threatened to shut off services in your [...] Pressure 148/83 11/27/2024 11:19 AM EST Pulse - - Temperature - - Respiratory Rate 18 11/27/2024 11:19 AM EST Oxygen Saturation 100% 11/27/2024 11:19 AM EST Inhaled Oxygen Concentration - - Weight - - Height - - Body Mass Index - - documented in this encounter Progress Notes * Jaci Walden RN - 11/27/2024 10:30 AM EST BP CHECK S: Pt here for BP check nurse visit. At last appointment on 11/14/2024 pt's BP noted to be 156/88. Recommendations made on that day were to return for a BP check in two weeks time with the [facility] nursingstaff .Pt are currently prescribed Lisinopril 20 mg but the pt states that she has not been taking this due to side effects, specifically fatigue. Pt states she has discussed this with PCP who will consider changing the medication based on today's readings. Today, pt denies any blurred vision, shortness of breath, chest pain, dizziness, or headaches. Pt reports noncompliance with BP medication regimen, confirms that BP medications have not been taken in over a weeks time. O: Left Arm BP 148/83, Pulse 74, RR 18/min, SPO2 100% on room air A: Noncompliance with BP medication regimen BP not at goal of <140/90 Reinforcement of Lifestyle modification including low sodium diet and exercise. P: Pt advised that today's readings will be sent to PCP for review and if any medication changes are made the pt will be contacted. Pt advised to continue taking meds as directed and follow a low fat/sodium diet and exercise as tolerated. Pt to f/u with PCP as needed. Pt agrees with plan and verbalized understanding. documented in this encounter Plan of Treatment Upcoming Encounters Date Type Department Care Team (Late st Contact Info) Description 01/03/2025 11:15 AM EST Office Visit [facility] CHC MED & PEDS [address] [place] [address] Liza Barboza MD [address] [place] [address] documented as of this encounter Visit Diagnoses Diagnosis Primary hypertension Unspecified essential hypertension documented in this encounter Additional Health Concerns Assessment Noted Time PHQ-9 Depression Total Score: 1 03/25/20 23 11:11 AM EDT documented as of this encounter Care Teams Croze Cutter Relationship Specialty Start Date End Date Liza Barboza MD [address] [place] [phone] PCP - General Family Medicine 10/17/15 documented as of this encounter
--- OUTSIDE RECORDS SUMMARY | 2024-11-27 15:53 | XMS_ITS | Encounter Summary ---
Author Organization [employer] Address [address] [place] [address] Care Team Providers Care Casting Assistant Name Role Phone Liza Barboza MD Primary Care Provider [phone] Reason for Visit * Reason Onset Date Comments Call Back Request 09/29/2023 Encounter Details Date Type Department Care Team ([facility] Contact Info) Description 09/29/2023 Telephone [facility] MEDICINE [address] [place] [address] Liza Barboza MD [address] [place] [address] Call Back Request Social History Tobacco Use Types Packs/Day Years [...] Telephone Encounter - Mitzy Moreno RN - 10/01/2023 10:51 AM EST Noted. Pt informed of results and provider POC. Pt reminded to f/u with PCP on 10/19/23 as scheduled. Pt agrees with plan. * Telephone Encounter - Radha Montes De Oca NP - 10/01/2023 10:03 AM EST Please inform her that the x-ray reveal no fracture or misalignment . Just some mild soft tissue swelling around the ankle. Continue interventions discussed during the appointment and follow up with PCP as scheduled. * Telephone Encounter - Mitzy Moreno RN - 09/30/2023 11:46 AM EST Pt requesting XR results scanned into chart. Please review and advise. * Telephone Encounter - Flako Baumann - 09/29/2023 2:35 PM EST Tc from patient requesting a call back in regards to X - Ray results [place] [facility] [place]writer does not see anything on chart documented in this encounter Plan of Treatment Upcoming Encounters Date Type Department Care Team (Late st Contact Info) Description 01/03/2025 11:15 AM EST Office Visit [facility]C MED & PEDS [address] [place] [address] Liza Barboza MD [address] [place] [address] documented as of this encounter Visit Diagnoses Not on filedocumented in this encounter Additional Health Concerns Assessment Noted Time PHQ-9 Depression Total Score: 1 03/25/20 23 11:11 AM EDT documented as of this encounter Care Teams Casting Assistant Relationship Specialty Start Date End Date Liza Barboza MD [address] [place] [address] PCP - General Family Medicine 10/17/15 documented as of this encounter
--- OUTSIDE RECORDS SUMMARY | 2024-11-27 15:53 | XMS_ITS | Encounter Summary ---
Author Organization [employer] Address [address] [place] [address] Care Team Providers Care Hat Copyist Name Role Phone Liza Barboza MD Primary Care Provider [phone] Reason for Visit * Reason Onset Date Comments Nurse Triage 07/15/2023 Encounter Details Date Type Department Care Team ([facility] Contact Info) Description 07/15/2023 Telephone [facility] CHC MED & PEDS [address] [facility] [place] [address] Liza Barboza MD [address] [place] [address] Nurse Triage Social History Tobacco Use Types Packs/Day Years Used Date Smoking Tobacco: Never Smokeless Tobacco: Never Depression Answer Date Recorded Patient Health Questionnaire-9 Score 1 03/25/2023 Depression Answer Date Recorded Patient Health Questionnaire-2 Score 0 03/25/2023 Comments Unknown Sex and Gender Information Value Date Recorded Sex Assigned at Female 08/31/2022 10:18 AM EDT Legal Sex Female 10:18 AM EDT Gender Identity Female 08/31/2022 10:18 AM EDT Sexual Orientation Straight 08/31/2022 10 :18 AM EDT documented as of this encounter Miscellaneous Notes * Telephone Encounter - Blanca Rubio RN - 07/15/2023 1:05 PM EDT Triage call with [employer] Changer Id [id number] Pt reports lower back pain mainly right sided involving hip and radiation of pain to right leg. Pt reports it is very painful to walk, climbing stairs Pt almost has to crawl on knees to get up the stairs and bending over is very painful. Pt has tried 600mg of motrin , heat, pain patches without effect. Pt is requesting apt with PCP. Apt with Dr. Bailey 07/23/23 @ 1000am. Insurance is verified as active prior to booking. Protocol Used: Back Pain (Adult) Protocol-Based Disposition: See in Office or Video Visit within 2 Weeks Video visit not offered Positive Triage Question: * Back pain lasts > 2 weeks * All higher-acuity triage questions were negative Care Advice Discussed: * Reassurance and Education - Back Pain * Cold or Heat * Sleep * Activity * Pain Medicines * Pain Medicines - Extra Notes and Warnings * Reasons To Call Back - Fever occurs - Numbness or weakness occurs, or bowel/bladder problems - Pain begins to shoot into the leg - Pain persists over 2 weeks - Pain becomes worse - You become worse * Telephone Encounter - Kaia Pfeiffer - 07/15/2023 11:06 AM EDT Symptom: Back Pain - Not From Injury Outcome: Talk to a nurse or provider within 15 minutes Reason: Can't walk (unless normally can't walk) The caller accepted this outcome Please contact pt at [phone] (Korean) documented in this encounter Plan of Treatment Upcoming Encounters Date Type Department Care Team ([facility] st Contact Info) Description 01/03/2025 11:15 AM EST Office Visit [facility] MED & PEDS [address] [place] [address] Liza Barboza MD [address] [place] [address] documented as of this encounter Visit Diagnoses Not on filedocumented in this encounter Additional Health Concerns Assessment Noted Time PHQ-9 Depression Total Score: 1 03/25/20 11:11 AM EDT documented as of this encounter Care Teams Hat Copyist Relationship Specialty Start Date End Date Liza Barboza MD [address] [place] [address] PCP - General Family Medicine 10/17/15 documented as of this encounter
--- OUTSIDE RECORDS SUMMARY | 2024-11-27 15:53 | XMS_ITS | Encounter Summary ---
Author Organization [employer] Address [address] [place] [address] Care Team Providers Care Assistant Manager Quality Management Name Role Phone Liza Barboza MD Primary Care Provider [phone] Reason for Visit * Reason Onset Date Comments Referral 07/12/2024 Encounter Details Date Type Department Care Team ([facility] Contact Info) Description 07/12/2024 Telephone [facility] MEDICINE [address] [place] [address] Liza Barboza MD [address] [place], [place] [id number] Referral Social History Tobacco Use Types Packs/Day Years [...] Telephone Encounter - Mitzy Moreno RN - 07/14/2024 4:25 PM EDT XR and MRI results faxed to [facility] Ortho. * Telephone Encounter - Mag Carcamo - 07/12/2024 1:56 PM EDT Tc from [facility] with [facility] requesting Xray results and MRI for scheduling. Ptis scheduled for 07/25/24. Pt was also [place] [facility] [place] however stated they received referral, senior writer does not see any referrals for [facility]. Please contact at [phone] documented in this encounter Plan of Treatment Upcoming Encounters Date Type Department Care Team (Late st Contact Info) Description 01/03/2025 11:15 AM EST Office Visit [facility] CHC MED & PEDS [address] [place] [address] Liza Barboza MD [address] [place] [address] documented as of this encounter Visit Diagnoses Not on filedocumented in this encounter Additional Health Concerns Assessment Noted Time PHQ-9 Depression Total Score: 1 03/25/20 23 11:11 AM EDT documented as of this encounter Care Teams Assistant Manager Quality Management Relationship Specialty Start Date End Date Liza Barboza MD [address] [place] [address] PCP - General Family Medicine 10/17/15 documented as of this encounter
[2024-11-27 16:25] LABS: Free T4 (Free Thyroxine) 0.92 ng/dL (0.71-1.85)
== END 2024-11-27 10:59 | disposition home or self-care (01) ==
LOC: HO.CHCLDS 10:58
PROVIDERS: Visit Provider Student in an Organized Health Care Education/Training Program
DX: I10 Essential (primary) hypertension (principal); E03.9 Hypothyroidism, unspecified
CPT/HCPCS: 36415; 80048; 80061; 80076; 84439; 84443

== ENCOUNTER 2025-02-05 13:43 | Outpatient (AMB) | payer MEDICAID, SELFPAY ==
--- NOTE | 2025-02-05 14:53 | A.OFFVIS_ITS ---
Vital Signs 02/05/25 14:55 Height 5 ft 4 in Weight 199 lb 4.766 oz BMI 34.2 BP 142/76 H Blood Pressure Location Rt brachial Position Sitting Pulse 74 Pulse Source Pulse Oximeter Pulse Oximetry (%) 100 Oxygen Delivery Method Room Air Intake Visit Reasons: Follow up US results Intake Note: ESTABLISHED PATIENT for mgmt of cholangitis. Review imaging results. Chief Complaint; Pt does not have any GI sx or concerns at this time. Pt would like to review results. Quality Manager Required: Yes Quality Manager Services: Quality Manager Present Quality Manager Name: LILI VELASQUEZ + Edmund [phone] Information Interpreted: clinical only Accompanied by: Self / Same As Patient Allergies apple Allergy (Intermediate, Verified 02/05/25 14:53) Swelling avocado Allergy (Unknown, Verified 02/05/25 14:53) Unknown banana Allergy (Unknown, Verified 02/05/25 14:53) Unknown codeine [CODEINE] Allergy (Unknown, Verified 02/05/25 14:53) SHAKING HPI HPI Follow up US results: Details: LAST VISIT: Screen for colon cancer Family history of diabetes mellitus Primary biliary cholangitis Microcytic hypochromic anemia Plan Patient denies any cardiac or respiratory symptoms.? Denies any issues with anesthesia in the past.? Denies any history of sleep apnea.? No history infectious diseases in the past or present.? Not on any anticoagulation therapy.? No family or personal history of colon cancer.? History of PBC, has not followed up with GI for quite some time. Will order liver profile, liver fibrosis panel as well as ultrasound with elastography to evaluate. Patient is currently on ursodiol can continue that. New refill sent. Patient is on Wegovy for weight loss. Patient denies melena, hematochezia, unintentional weight loss or ribbon like stools.? Discussed at length the pre-procedure,? prep, diet & medications as well as what to expect prior, during and after the procedure.?? Stressed the importance of good bowel prep.? Recommended the use of Vaseline or Calmoseptine OTC & baby wipes with bowel movements to promote comfort.? ?Patient verbalizes understanding and agrees to plan of care.? She was given the o pportunity to ask questions and all questions answered.? We will see her after the procedure.? Orders Orders Liver Panel 11/08/24 R74.01 US abdomen comp w elastography 11/08/24 R79.89 Liver Fibrosis Pnl 11/08/24 K76.0 Hemoglobin A1c 11/08/24 Z83.3 Medications New polyethylene glycol 3350 (Miralax) As directed by gastroenterology department at [facility] 238 grams PO ONCE 238 grams 0RF Z12.11 bisacodyl (Dulcolax (bisacodyl)) 10 mg (2 x 5 mg) PO BEDTIME 180 tabs 4RF TODAY'S VISIT Patient is here today for follow-up and to discuss ultrasound results and lab results. Patient reports to be feeling well. All results discussed with patient as well as ultrasound results. Patient denies any issues with anesthesia in the past. No history of sleep apnea. Not on any anticoagulation medication. Patient denies melena, hematochezia, unintentional weight loss or ribbon like stools. Patient reports that she is doing well taking Dulcolax daily to help her with bowel movements. 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) Bunion of unspecified foot Surgical History S/P ear surgery Previous section Family History Mother Diabetes High blood pressure Father Diabetes Heart attack Social History Household Members: Spouse, Family and Children Housing: Apartment Are you a primary property caretaker to a significant other at home: No (mother) Do you presently have visiting nurse or other home services: No Alcohol intake: never Patient Tobacco Use Status: Never used Tobacco service: No Current occupational status: unemployed 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 Review of Systems Const Denies weight gain and Denies weight loss ENT Reports no additional complaints, Denies dysphagia and Denies odynophagia Card Reports no additional complaints Resp Reports no additional complaints GI Denies abdominal pain, Denies belching, Denies melena, Denies bloating, Denies change in bowel habits, Denies constipation, Denies dysphagia, Denies excessive flatus, Denies dyspepsia, Reports heartburn (occasional), Denies diarrhea, Denies loose stools, Denies nausea, Denies odynophagia and Denies vomiting Reports no additional complaints Musc Reports no additional complaints Neuro Reports no additional complaints Psych Reports no additional complaints Endo Reports no additional complaints Physical Exam Vital Signs: Last Vital Signs Pulse 74 02/05/25 14:55 BP 142/76 H 02/05/25 14:55 Pulse Ox 100 02/05/25 14:55 Oxygen Delivery Method Room Air 02/05/25 14:55 BMI result Body Mass Index 34.2 Const General: healthy appearing and no acute distress Nutritional Appearance: obese Orientation/consciousness: patient oriented x3 Resp Effort & Inspection: normal respiratory effort, able to speak in complete sentences, no tracheal deviation and symmetric chest movement Auscultation: clear to auscultation bilaterally Cardio Rate: regular rate GI Inspection: Yes normal to inspection and No distended Palpation (GI): Soft to palpation, not firm, nontender and No hepatosplenomegaly present Auscultation: normal bowel sounds General: Yes no CVA tenderness Back/Spine/Pelvis Back: no CVA tenderness Skin General skin exam: elasticity normal, turgor normal and dry skin Neuro General: patient oriented x3 Psych Appearance: grossly normal Mental Status: mental status grossly normal Results Reviewed Results Reviewed: FINDINGS: Liver: The liver is normal in size and demonstrates homogeneous echotexture. No focal mass or intrahepatic biliary ductal dilatation is identified. There is normal hepatopedal flow in the portal vein. Ultrasound elastography of the liver was performed with 10 separate measurements of the liver parenchyma with the patient in the supine position. Measurements were obtained approximately 2 cm below Anthony's capsule and perpendicular to the capsule. Images are of satisfactory quality. The median shear wave velocity is 1.40 m/s. The interquartile range/median (IQR/median) is 0.26. Gallbladder and biliary tree: The gallbladder is unremarkable, without evidence of calculi, wall thickening, or pericholecystic fluid. There is no sonographic Hewitt sign. The common bile duct is normal in caliber measuring 3 mm. Kidneys: The right kidney measures 11.4 cm in length. The left kidney measures 12.3 cm in length. The kidneys are unremarkable, without evidence of masses, hydronephrosis, or calculi. Pancreas: The pancreatic head, neck, and body are unremarkable. The pancreatic tail is obscured by bowel gas. Spleen: The spleen is normal in size and contour, measuring 10.1 cm in length. Abdominal aorta and inferior vena cava: The visualized portions of the abdominal aorta and inferior vena cava are normal in caliber. There is no free fluid in the abdomen. US/US abdomen comp w elastography IMPRESSION: Unremarkable abdominal ultrasound. The median shear wave velocity is 1.40 m/s, corresponding to a median liver stiffness of 5.9 kPa. The IQR/median value is 0.26. This is indicative of a poor quality data set, and the estimated liver stiffness may be unreliable. Findings are indicative of a low elastography value which rules out advanced chronic liver disease in asymptomatic patients. Laboratory Tests 08/22/24 10:46 AST 36 H ALT 35 H Alkaline Phosphatase 249 H Laboratory Tests 11/08/24 11/27/24 12/21/24 14:23 11:03 11:36 AST 48 H 54 H 36 H ALT 58 H 55 H 34 H Alkaline Phosphatase 250 H 272 H 246 H Liver Fibrosis Stage F0 Assessment & Plan Assessment & Plan (1) Family history of diabetes mellitus: Code(s): Z83.3 - Family history of diabetes mellitus Category: Medical (2) Primary biliary cholangitis: Onset Date: 07/08/21 Code(s): K74.3 - Primary biliary cirrhosis Category: Medical (3) Microcytic hypochromic anemia: Code(s): D50.9 - Iron deficiency anemia, unspecified Category: Medical (4) Screen for colon cancer: Code(s): Z12.11 - Encounter for screening for malignant neoplasm of colon (5) Constipation: Code(s): K59.00 - Constipation, unspecified Qualifiers: Constipation type: slow transit constipation Qualified Code(s): K59.01 - Slow transit constipation Plan Continue taking Dulcolax daily. Increase fluid intake and activity to promote better bowel motility. Patient's procedure is schedule in March. ? Patient denies melena, hematochezia, unintentional weight loss or ribbon like stools.? Discussed at length the pre-procedure,? prep, diet & medications as well as what to expect prior, during and after the procedure.?? Stressed the importance of good bowel prep.? Recommended the use of Vaseline or Calmoseptine OTC & baby wipes with bowel movements to promote comfort.? ?Patient verbalizes understanding and agrees to plan of care.? She was given the opportunity to ask questions and all questions answered.? We will see her after the procedure.? Medications: New polyethylene glycol 3350 (Miralax) As directed by gastroenterology department at [facility] 238 grams PO ONCE 238 grams 0RF Z12.11 - Encounter for screening for malignant neoplasm of colon Refilled bisacodyl (Dulcolax (bisacodyl)) 10 mg (2 x 5 mg) PO BEDTIME 180 tabs 4RF Coding Level of Care Code Est Pt Level 4 (21272) Complex EM visit Add On G2211 Diagnoses Family history of diabetes mellitus Z83.3 Primary biliary cholangitis K74.3 Microcytic hypochromic anemia D50.9 Screen for colon cancer Z12.11 Slow transit constipation K59.01 Constipation type: slow transit constipation Time Spent (min) 35 Comment 25 minutes spent with patient and additional 10 minutes spent reviewing her records
[2025-02-05 14:55] VITALS: BP 142/76; PULSE 74; O2SAT 100; BMI 34.2
--- OUTSIDE RECORDS SUMMARY | 2025-02-05 16:16 | XMS_ITS | Encounter Summary ---
Author Organization [employer] Address [address] [place] [address] Care Team Providers Care Court Assistant Name Role Phone Liza Barboza MD Primary Care Provider [phone] Reason for Visit * Reason Onset Date Comments Med Refill 06/09/2024 Encounter Details Date Type Department Care Team ([facility] Contact Info) Description 06/09/2024 Telephone [facility] MEDICINE [address] [place] [address] Liza Barboza MD [address] [place] [address] Med Refill Social History Tobacco Use Types [...] 4 % cream To be sent to: [facility]/pharmacy #[id number] [place], [place] - [address] [place] [address] documented in this encounter Plan of Treatment Upcoming Encounters Date Type Department Care Team (Late st Contact Info) Description 02/22/2025 11:00 AM EDT Medication Management [facility] MED & PEDS [address] [place] [address] Shonda Tucker, PharmD [address] [place] [address] 04/06/2025 11:30 AM EDT Office Visit [facility] MED & PEDS [address] [place] [address] Liza Barboza MD [address] [place] [address] documented as of this encounter Visit Diagnoses Not on filedocumented in this encounter Additional Health Concerns Assessment Noted Time PHQ-9 Depression Total Score: 1 03/25/20 23 11:11 AM EDT documented as of this encounter Care Teams Court Assistant Relationship Specialty Start Date End Date Liza Barboza MD [address] [place] [address] PCP - General Family Medicine 10/17/15 documented as of this encounter
--- OUTSIDE RECORDS SUMMARY | 2025-02-05 16:16 | XMS_ITS | Encounter Summary ---
Author Organization [employer] Address [address] [place] [address] Care Team Providers Care Body Painter Name Role Phone Liza Barboza MD Primary Care Provider [phone] Reason for Visit * Reason Onset Date Comments Pre-op Visit 01/31/2024 Encounter Details Date Type Department Care Team ([facility] Contact Info) Description 01/31/2024 Telephone [facility] [facility] MEDICINE [address] [place] [address] Liza Barboza MD [address] [place], [place] [phone] Pre-op Visit Social History Tobacco Use Types [...] YES Surgeon's name: Valerie Oshea Facility name: [facility] Surgeon's office number: [phone] Ext [phone] Surgeon's office fax number: [phone] Contact name (person you spoke with): Maddie Last office note from surgeon requested. documented in this encounter Plan of Treatment Upcoming Encounters Date Type Department Care Team (Late st Contact Info) Description 02/22/2025 11:00 AM EDT Medication Management [facility] MED & PEDS [address] [place] [address] Shonda Tucker, PharmD [address] [place] [address] 04/06/2025 11:30 AM EDT Office Visit [facility] [facility] CHC MED & PEDS [address] [place] [address] Liza Barboza MD [address] [place] [address] documented as of this encounter Visit Diagnoses Not on filedocumented in this encounter Additional Health Concerns Assessment Noted Time PHQ-9 Depression Total Score: 1 03/25/20 11:11 AM EDT documented as of this encounter Care Teams Body Painter Relationship Specialty Start Date End Date Liza Barboza MD [address] [place] [address] PCP - General Family Medicine 10/17/15 documented as of this encounter
--- OUTSIDE RECORDS SUMMARY | 2025-02-05 16:16 | XMS_ITS | Encounter Summary ---
Author Organization [employer] Address [address] [place] [address] Care Team Providers Care Civil Engineering Professional Name Role Phone Liza Barboza MD Primary Care Provider [phone] Reason for Visit * Reason Comments Med Change Request Encounter Details Date Type Department Care Team ([facility] Contact Info[facility] Description 06/13/2024 Refill [facility] MED & PEDS [address] [place] [address] Zaida Cortes MD [address] [place] [address] Social History Tobacco Use Types Packs/Day Years [...] 02/22/2025 11:00 AM EDT Medication Management [facility] MED & PEDS [address] [place] [address] Shonda Tucker, PharmD [address] [place] [address] 04/06/2025 11:30 AM EDT Office Visit [facility] MED & PEDS [address] [place] [address] Liza Barboza MD [address] [place] [address] documented as of this encounter Visit Diagnoses Not on filedocumented in this encounter Additional Health Concerns Assessment Noted Time PHQ-9 Depression Total Score: 1 03/25/20 23 11:11 AM EDT documented as of this encounter Care Teams Civil Engineering Professional Relationship Specialty Start Date End Date Liza Barboza MD [address] [place] [address] PCP - General Family Medicine 10/17/15 documented as of this encounter
--- OUTSIDE RECORDS SUMMARY | 2025-02-05 16:16 | XMS_ITS | Encounter Summary ---
Author Organization [employer] Address [address] 7[address] [place] [address] Care Team Providers Care Lab Scientist Name Role Phone Liza Barboza MD Primary Care Provider [phone] Reason for Visit * Reason Onset Date Comments Medication Question 12/19/2024 Encounter Details Date Type Department Care Team ([facility] Contact Info) Description 12/19/2024 Telephone [facility] MED & PEDS 505 [facility] [place] [address] Liza Barboza MD 505 [place] [address] Medication Question Social History Tobacco Use Types [...] encounter Miscellaneous Notes * Telephone Encounter - Zaira Griffith - 12/22/2024 9:01 AM EST Tc from pt calling in regards medication Tirzepatide-Weight Management (Zepbound) 5 mg * Telephone Encounter - Eden José - 12/19/2024 10:59 AM EST Tc from pt calling to in form was advised by pharmacy to contact pcp office to send a new script for Tirzepatide-Weight Management (Zepbound) 5 mg . documented in this encounter Plan of Treatment Upcoming Encounters Date Type Department Care Team (Late st Contact Info) Description 02/22/2025 11:00 AM EDT Medication Management [facility] MED & PEDS 505 [place] [address] Shonda Tucker PharmD 230 [place] [address] 04/06/2025 11:30 AM EDT Office Visit [facility] MED & PEDS 505 [place] [address] Liza Barboza MD 505 [place] [address] documented as of this encounter Visit Diagnoses Not on filedocumented in this encounter Additional Health Concerns Assessment Noted Time PHQ-9 Depression Total Score: 1 03/25/20 23 11:11 AM EDT documented as of this encounter Care Teams Lab Scientist Relationship Specialty Start Date End Date Liza Barboza MD [address] [place] [address] PCP - General Family Medicine 10/17/15 documented as of this encounter
--- OUTSIDE RECORDS SUMMARY | 2025-02-05 16:16 | XMS_ITS | Data Portability ---
Author Organization [place] [facility], Allergy Address [address] [place] [id number] Assessment Encounter Date Assessment Date Assessment LastModified [...] We will also arrange consult with Dr. Celis for further evaluation of the ear and MHL. [email or web address] Not available 07/27/2024 16:38:15 Plan of Treatment Reminders Order Date Submit Date Provider Last Modified By Organization Details Last Modified Time Details Appointments None recorded. Lab None recorded. Referral None recorded. Procedures None recorded. Surgeries None recorded. Imaging None recorded. Medication Orders Ciprodex 0.3 %-0.1 % ear drops,susp ension 2023 024 [facility], [address] [place] [address], [place], [place], [id number], 4 08:33:02 Patient TargetsNo targets recorded. Patient InstructionsNo [...] sensorineur al hearing loss of right ear [id number] 5 Active 2023 PIYUSH CAMPOS [place], J[facility] [address] [facility],[address] [facility], [place], [address], [facility] 4 14:40:40 Acute suppurative otitis media [id number] Active [address],[place] [address], [place], [address], [facility] 4 16:06:07 Otorrhea of right ear [id number] 106 Active 2023 CARA CHANEL PA-C [address] [place] [address],[place] [address], [place], [address], [facility] [place] [facility] 4 16:32:24 Problem Notes None recorded. Procedures Surgical History Date Name Laterality Status Provider Name and Address Organization Details Recorded Time 07/27/2024 Comp Audio with Tymps ([address] & [address]2675) completed PIYUSH CAMPOS [place], [facility] [address] [facility],[place] [address], [place], [address], [facility] 07/27/2024 14:39:56 Imaging Results Imaging Date Name Status LastModified by [facility] Details LastModified Time 07/28/2024 audiogram completed [email or web address] [...] ONCE DIRECTED BY [facility] active Not Available Not Available No [...] SNOMED-CT Code Diagnosis ICD10 Code Diagnosis Note [id number] CARA CHANEL PA-C [facility] [address] [address] 07/27/2024 13:43:52 07/27/2024 15:42:20 Mixed conductive and sensorineural hearing loss of right ear [id number] 9105 H90.71 Audiologic al evaluation results: Right [...] hermetic seal}} Otorrhea of right ear 10 [id number] 797503 H92.11 Health Concerns Section Related Observation LastModified by Organization Detai ls LastModified Time None Recorded Concern Status LastModified by Organization Details LastModified Time None Recorded Advance Directives Directive None Recorded Payers Encounter Date Sequence Insurance Name Policy Number Policy Lee Covered Member ID Lee Member ID Guarantor Name 07/27/[address] [place] [address] Chiquis Lopez [id number] Chiquis Lopez Notes Date Note Type Note [...] a hearing aid consult. CARA CHANEL PA-C [address] [place] [address], [phone], [facility] 07/27/2024 16:53:17 OBGyn Episode No OBEpisode recorded.
--- OUTSIDE RECORDS SUMMARY | 2025-02-05 16:17 | XMS_ITS | Encounter Summary ---
Author Organization [employer] Address [address] [facility] [address] [place] [address] Care Team Providers Care Financing Analyst Name Role Phone Liza Barboza MD Primary Care Provider [phone] Encounter Details Date Type Department Care Team ([facility] Contact Info) Description 01/23/2025 Telephone [facility] MEDICINE 230 [place], [place] [phone] Matilde Nguyen, PharmD 230 [place] [address] Social History Tobacco Use Types Packs/Day Years Used Date Smoking Tobacco: Never Smokeless Tobacco: Never Alcohol Use Standard Drinks/Week Comments Never 0 (1 standard drink = 0.6 oz pur e alcohol) Depression Answer Date Recorded Patient Health Questionnaire-9 Score 1 03/25/2023 Housing Stability Answer Date Recorded What is your housing situation today? I have rebel barnd 07/11/[address] you li [...] Telephone Encounter - Maddie Gallo RN - 01/23/2025 1:45 PM EDT Images from the original note were not included. Call returned to Chiquis Lopez to triage below. Confirms that did stop medication of lisinopril 1 month ago. Per pt was under the impression that atorvastatin was for BP as states discussed SE of lisinopril at last visit on 01/03 with PCP. Visit notes do not mention SE reported, plan was for patient to continue current meds. . Per pt 2 weeks ago had elevated BP with CP. Denies any CP , WITT or SOB. Per pt BP reading below taken a few minutes ago, on right side. Pt asked to recheck BP on left side to see if similar result. 191/114 HR 102. Pt instructed to seek WIC at [facility] for repeat BP check, full exam and to start plan for HTN management. Pt states will attempt to get to WIC. Reviewed risks of uncontrolled Elevated BP including stroke, heart attack, and heart failure. Advised pt to seek EMS if CP, WITT or SOB occurs. Pt agrees. Note forwarded to PCP and team nurse to for follow up PRN. Protocol Used: Blood Pressure - High (Adult) Protocol-Based Disposition: Discuss with PCP and Callback by Nurse within 1 Hour Video visit offer not recorded Positive Triage Question: * Systolic BP >= 180 OR Diastolic >= 110, and missed most recent dose of blood pressure medication * All higher-acuity triage questions were negative Care Advice Discussed: * High Blood Pressure * Reasons To Call Back - Headache, blurred vision, difficulty talking, or difficulty walking occurs - Chest pain or difficulty breathing occurs - You become worse Patient Call (Newest Message First) View All Conversations on this Encounter Merry Grijalva Triage Nurse6 minutes ago (1:38 PM) AC Patient complete MTM telephone visit and checked their blood pressure. Reported reading of 183/117 mmHg and heart rate of 96 BPM. Reports self discontinuation of lisinopril due to cough and facial swelling, and is not taking any medications for hypertension. Please assist. Thank you. Recent Patient Communication Last Update Description Specialty Today -- Family Medicine [facility] Medicine Matilde Nguyen Open Yesterday Medication Question [facility] Medicine Liza Barboza Closed 1 week ago Meds refused: 1 [facility] Medicine [facility] Med & Peds Zaida Cortes Open 2 weeks ago -- [facility] Medicine Liza Barboza Closed 3 weeks ago Chart Prep [facility] Med & Peds Liza Barboza Closed There are additional recent communications with this patient. View the rest in Chart Review. documented in this encounter Plan of Treatment Upcoming Encounters Date Type Department Care Team (Late st Contact Info) Description 02/22/2025 11:00 AM EDT Medication Management [facility] MED & PEDS 505 [place] [address] Shonda Tucker PharmD 230 [place] [address] 04/06/2025 11:30 AM EDT Office Visit [facility] MED & PEDS 505 [place] [address] Liza Barboza MD 505 [place] [address] documented as of this encounter Visit Diagnoses Not on filedocumented in this encounter Additional Health Concerns Assessment Noted Time PHQ-9 Depression Total Score: 1 03/25/20 23 11:11 AM EDT documented as of this encounter Care Teams Financing Analyst Relationship Specialty Start Date End Date Liza Barboza MD [address] [place] [address] PCP - General Family Medicine 10/17/15 documented as of this encounter
--- OUTSIDE RECORDS SUMMARY | 2025-02-05 16:17 | XMS_ITS | Clinical Summary ---
Author Organization [facility] [address] [place] [address] [place] [phone] Phone Care Team Providers Care Developer Programmer Analyst Name Role Phone Liza Barboza MD Primary Care Provider [phone] Allergies Active Allergy Reactions Criticality Noted Date Comments Codeine 05/13/2016 Medications carvediloL (COREG) 25 mg tablet Take 25 mg by mouth daily. Active diclofenac (Voltaren Arthritis Pain) 1 % topical gel Place 1 g onto the skin daily. 06/01/2017 Active ibuprofen (ADVIL,MOTRIN) 600 mg tablet TAKE 1 TABLET BY MOUTH 3 TIMES A DAY 06/21/2017 Active levothyroxine sodium (TIROSINT) 100 mcg capsule Take by mouth. Active lisinopriL (PRINIVIL,ZESTRI L) 10 mg tablet Take 10 mg by mouth daily. Active ursodioL (ACTIGALL) 500 mg tablet Take 500 mg by mouth 3 times daily. Active Active Problems Problem Noted Date Diagnosed Date HTN (hypertension) 04/19/2014 Immunizations Name Administration Dates Next Due Td Tetanus diptheria (Tdvax) 7yo and older 03/01 Surgical History Surgery Date Site/Laterality Comments SECTION PROCEDURE: HISTORICAL DELIVERY; COMMENT: x 3 OTHER SURGICAL HISTORY PROCEDURE: ---- OTHER ----; COMMENT: left axillary gland removed Medical History Medical History Date Comments HTN (hypertension) DX:HTN (hyper tension) Thyroid disorder DX:Thyroid diso rder Other xekat-cep-zplvi infants DX:Other adhka-snq-fvque infants; COMMENT: cardiomegaly dx by sonogram with [...] drink = 0.6 oz pur e alcohol) Comments Unknown Sex and Gender Information Value Date Recorded Sex Assigned at Not on file Legal Sex Female 4:51 AM EST Gender Identity Not on file Sexual Orientation Not on file Obstetrics History Para Term AB IAB SAB Ectopic Multiple Livin g Live Births 3 3 3 3 Date Outcome GA Total Labor Labor/2nd/3rd Weight Sex Type Anes PTL Dawn A1 A5 Name Clin Term Term Term Plan of Treatment Upcoming Encounters Date Type Department Care Team (Late st Contact Info) Description 03/13/2025 3:30 PM EDT Office Visit Obstetrics and Gynecology [address] [address] Estefanía Arteaga, [facility] [address] [place] [address] Health Maintenance Due Date Last Done Comments Hepatitis A Vaccines (1 of 2 - Risk 2-dose series) 1992 Cervical Cancer Screening: Pap Smear 12/10/2020 12/10/2017, 12/10/2017 Colorectal Cancer Screening: Colonoscopy 10/10/2022 HIV Screening 10/10/2022 Social Influencers of Health Screening 10/10/2022 Hypertension/CHF/CAD Annual BMP Blood Test 10/13/2022 Pneumococcal Vaccine: 50+ Years (1 of 1 - PCV) 2023 Zoster Vaccines (1 of 2) 2023 Depression Screening 03/25/2024 03/25/2023 COVID-19 Vaccine ( - season) 2024 04/02/2021, 03/05/2021 Influenza Vaccine (Season Ended) 2025 07/22/2015, 09/24/2014, 07/27/2011, Additional history exists DTaP,Tdap,and Td [...] patient's age to complete this topic Meningococcal B Vaccine Aged Out No l onger eligible based on patient's age to complete [...] is recommended in 1 year. MAMMO LOCATION: [facility], [address] [place] [address], [address], . -------- FINAL REPORT -------- Dictated By: Rebecca Hopper Dictated Date: 10/09/2024 14:19 ET Assigned Physician: Rebecca Hopper Reviewed and Electronically Signed By: Rebecca Hopper Signed Date: 10/09/2024 14:20 ET Workstation ID: [id number] Transcribed By: Self Edit Transcribed Date: 10/09/2024 [...] is recommended in 1 year. MAMMO LOCATION: [facility], [address] [place] [address], [address], . -------- FINAL REPORT -------- Dictated By: Rebecca Hopper Dictated Date: 10/09/2024 14:19 ET Assigned Physician: Rebecca Hopper Reviewed and Electronically Signed By: Rebecca Hopper Signed Date: 10/09/2024 14:20 ET Workstation ID: [id number] Transcribed By: Self Edit Transcribed Date: 10/09/2024 14:19 ET Liza Barboza MD IMG BI PROCEDURES Final Result * Cervical Cancer Screening: HPV (12/10/2017) Pathologist [facility] Cervical Cancer Screening: HPV negative, abstracted Historical Provider HEALTH MAINTENANCE Final Result * Lipid panel (11/03/2001) Pathologist [facility] LDL/HDL Ratio 3 1 - 4 Triglycerides 42 10 - 140 mg/dL Cholesterol 159 10 - 200 mg/dL HDL 63 32 - 96 mg/dL LDL Cholesterol 88 62 - 185 mg/dL Blood Venous blood specimen / Unknown Historical Provider LAB BLOOD ORDERABLES Darlene l Result from Last 3 Months or Most Recently Relevant to Health Maintenance Insurance MEDICAID - [place] Care Teams Developer Programmer Analyst Relationship Specialty Start Date End Date Liza Barboza MD [address] [place] [address] PCP - General 04/13/14
--- OUTSIDE RECORDS SUMMARY | 2025-02-05 16:17 | XMS_ITS | Encounter Summary ---
Author Organization [employer] Address [address] [facility] 7 [place] [address] Care Team Providers Care Concrete Mixer Loader Truck Mounted Name Role Phone Liza Barboza MD Primary Care Provider [phone] Reason for Visit * Reason Onset Date Comments Med Refill 12/04/2022 Encounter Details Date Type Department Care Team ([facility] st Contact Info) Description 12/04/2022 Refill [facility] MED & PEDS 505 [place] [address] Liza Barboza MD 505 [place] [address] Acquired hypothyroidism (Primary Dx) Social History Tobacco [...] Levethyroxine 150 mcg tablet Please sent to [id number] [address] [place] [address] documented in this encounter Plan of Treatment Upcoming Encounters Date Type Department Care Team (Late st Contact Info) Description 02/22/2025 11:00 AM EDT Medication Management [facility] MED & PEDS 505 [place] [address] Shonda Tucker PharmD [address] [place] [address] 04/06/2025 11:30 AM EDT Office Visit [facility] MED & PEDS 505 [place] [address] Liza Barboza MD 505 [place] [address] documented as of this encounter Visit Diagnoses Diagnosis Acquired hypothyroidism- Primary Unspecified hypothyroidism documented in this encounter Care Teams Concrete Mixer Loader Truck Mounted Relationship Specialty Start Date End Date Liza Barboza MD [address] [place] [address] PCP - General Family Medicine 10/17/15 documented as of this encounter
--- OUTSIDE RECORDS SUMMARY | 2025-02-05 16:17 | XMS_ITS | Encounter Summary ---
Author Organization [employer] Address [address] [facility] [address] [place] [address] Care Team Providers Care Meal Grinder Tender Name Role Phone Liza Barboza MD Primary Care Provider [phone] Reason for Visit * Reason Onset Date Comments Nurse Triage 07/15/2023 Encounter Details Date Type Department Care Team ([facility] Contact Info) Description 07/15/2023 Telephone [facility] MED & PEDS 505 [place] [address] Liza Barbzoa MD [address] [place] [address] Nurse Triage Social History Tobacco Use Types [...] 07/15/2023 1:05 PM EDT Triage call with [employer] Senior Computer Specialist Id [id number] Pt reports lower back pain mainly right [...] accepted this outcome Please contact pt at [phone] (Mozambican) documented in this encounter Plan of Treatment Upcoming Encounters Date Type Department Care Team (Late st Contact Info) Description 02/22/2025 11:00 AM EDT Medication Management [facility] MED & PEDS [address] [place] [address] Shonda Tucker, PharmD 230 [place] [address] 04/06/2025 11:30 AM EDT Office Visit [facility] MED & PEDS [address] [place] [address] Liza Barboza MD [address] [place] [address] documented as of this encounter Visit Diagnoses Not on filedocumented in this encounter Additional Health Concerns Assessment Noted Time PHQ-9 Depression Total Score: 1 03/25/20 23 11:11 AM EDT documented as of this encounter Care Teams Meal Grinder Tender Relationship Specialty Start Date End Date Liza Barboza MD [address] [place] [address] PCP - General Family Medicine 10/17/15 documented as of this encounter
--- OUTSIDE RECORDS SUMMARY | 2025-02-05 16:17 | XMS_ITS | Encounter Summary ---
Author Organization [employer] Address [address] [place] [address] Care Team Providers Care Cold Working Inspector Name Role Phone Liza Barboza MD Primary Care Provider [phone] Reason for Visit * Reason Onset Date Comments Medication Question 08/29/2024 Encounter Details Date Type Department Care Team ([facility] Contact Info) Description 08/29/2024 Telephone [facility] MEDICINE [address] [place] [address] Liza Barboza MD [address] [place], [place] [phone] Medication Question Social History Tobacco Use Types [...] EDT TC placed to pt with a frame fixer in regards to request for increase in [...] Description 02/22/2025 11:00 AM EDT Medication Management [facility] MED & PEDS [address] [place] [address] Shonda Tucker PharmD [address] [place] [address] 04/06/2025 11:30 AM EDT Office Visit [facility] MED & PEDS [address] [place] [address] Liza Barboza MD [address] [place] [address] documented as of this encounter Visit Diagnoses Not on filedocumented in this encounter Additional Health Concerns Assessment Noted Time PHQ-9 Depression Total Score: 1 03/25/20 23 11:11 AM EDT documented as of this encounter Care Teams Cold Working Inspector Relationship Specialty Start Date End Date Liza Barboza MD [address] [place] [address] PCP - General Family Medicine 10/17/15 documented as of this encounter
--- OUTSIDE RECORDS SUMMARY | 2025-02-05 16:17 | XMS_ITS | Encounter Summary ---
Author Organization [employer] Address [address] [facility] 7t [place] [address] Care Team Providers Care Project Product Manager Name Role Phone Liza Barboza MD Primary Care Provider [phone] Encounter Details Date Type Department Care Team ([facility] Contact Info) Description 10/10/2024 Orders Only [facility] [address] [place] [address] Provider, MD Izabella Social History Tobacco Use [...] Description 02/22/2025 11:00 AM EDT Medication Management [facility] MED & PEDS 505 [place] [address] Shonda Tucker, PharmD 230 [place] [address] 04/06/2025 11:30 AM EDT Office Visit [facility] MED & PEDS [address] [place] [address] Liza Barboza MD 505 [place] [address] documented as of this encounter Procedures Procedure Name Priority Date/Time Associated Diagnosis Comments HM MAMMOGRAPHY Routine 10/07/2024 1:03 PM EST documented in this encounter Results * Hm Mammography (10/07/2024 1:03 PM EST) Anatomical Region Laterality Modality Other us Historical Provider HEALTH MAINTENANCE Final Result documented in this encounter Visit Diagnoses Not on filedocumented in this encounter Additional Health Concerns Assessment Noted Time PHQ-9 Depression Total Score: 1 03/25/20 23 11:11 AM EDT documented as of this encounter Care Teams Project Product Manager Relationship Specialty Start Date End Date Liza Barboza MD [address] [place] [address] PCP - General Family Medicine 10/17/15 documented as of this encounter
--- OUTSIDE RECORDS SUMMARY | 2025-02-05 16:17 | XMS_ITS | Encounter Summary ---
Author Organization [employer] Address [address] [facility] 7 [place] [address] Care Team Providers Care Senior Software Engineering Manager Name Role Phone Liza Barboza MD Primary Care Provider [phone] Reason for Visit * Reason Comments Med Refill Encounter Details Date Type Department Care Team ([facility] Contact Info) Description 01/11/2025 Refill [facility] CHC MED & PEDS [address] [place] [address] Zaida Cortes MD 505 [place] [address] Seborrheic dermatitis Social History Tobacco Use Types Packs/Day Years [...] 11:00 AM EDT Medication Management [facility] MED & PEDS [address] [place] [address] Shonda Tucker, PharmD [address] [place] [address] 04/06/2025 11:30 AM EDT Office Visit [facility] MED & PEDS [address] [place] [address] Liza Barboza MD [address] [place] [address] documented as of this encounter Visit Diagnoses Diagnosis Seborrheic dermatitis Unspecified seborrheic dermatitis documented in this encounter Additional Health Concerns Assessment Noted Time PHQ-9 Depression Total Score: 1 03/25/20 23 11:11 AM EDT documented as of this encounter Care Teams Senior Software Engineering Manager Relationship Specialty Start Date End Date Liza Barboza MD [address] [place] [address] PCP - General Family Medicine 10/17/15 documented as of this encounter
--- OUTSIDE RECORDS SUMMARY | 2025-02-05 16:17 | XMS_ITS | Encounter Summary ---
Author Organization [employer] Address [address] [facility] [address] [place] [address] Care Team Providers Care Tube Heater Name Role Phone Liza Barboza MD Primary Care Provider [phone] Reason for Visit * Reason Onset Date Comments Call Back Request 09/29/2023 Encounter Details Date Type Department Care Team ([facility] Contact Info) Description 09/29/2023 Telephone [facility] MEDICINE [address] [place] [address] Liza Barboza MD [address] [place] [address] Call Back Request Social History Tobacco Use Types Packs/Day Years Used Date Smoking Tobacco: Never Smokeless Tobacco: Never Depression Answer Date Recorded Patient Health Questionnaire-9 Score 1 03/25/2023 Housing Stability Answer Date Recorded What is your housing situation today? I have [employer] 09/06/[address] you [...] - Ray results states was done [facility] howeverwriter does not see anything on chart documented in this encounter Plan of Treatment Upcoming Encounters Date Type Department Care Team (Late st Contact Info) Description 02/22/2025 11:00 AM EDT Medication Management [facility] MED & PEDS [address] [place] [address] Shonda Tucker PharmD [address] [place] [address] 04/06/2025 11:30 AM EDT Office Visit [facility] MED & PEDS [address] [place] [address] Liza Barboza MD [address] [place] [address] documented as of this encounter Visit Diagnoses Not on filedocumented in this encounter Additional Health Concerns Assessment Noted Time PHQ-9 Depression Total Score: 1 03/25/20 23 11:11 AM EDT documented as of this encounter Care Teams Tube Heater Relationship Specialty Start Date End Date Liza Barboza MD [address] [place] [address] PCP - General Family Medicine 10/17/15 documented as of this encounter
--- OUTSIDE RECORDS SUMMARY | 2025-02-05 16:17 | XMS_ITS | Encounter Summary ---
Author Organization [employer] Address [address] [facility] 7 [place] [address] Care Team Providers Care Crm Coordinator Name Role Phone Liza Barboza MD Primary Care Provider [phone] Reason for Visit * Consultation (Routine) - Authorized Specialty Diagnoses / Procedures Referred By Contac t Referred To Contact Pharmacy Diagnoses Primary hypertension Liza Barboza MD [address] [place] [address] Phone: tel: fax: Referral ID Status Reason Start Date Expiration Date Visits Requested Visits Authorized [id number] Authorized Continuity of Care 01/03/2025 01/03/2026 6 6 Encounter Details Date Type Department Care Team ([facility] Contact Info) Description 01/23/2025 1:00 PM EDT Telemedicine [facility] [address] [place] [address] Matilde Nguyen, PharmD [address] [place] [address] Primary hypertension (Primary Dx); Right-sided heart failure, unspecified HF chronicity (CMS/HCC); Hypothyroidism, unspecified type Social History Tobacco Use [...] Sign Reading Time Taken Comments Blood Pressure 183/117 01/23/2025 1:23 PM EDT Pulse 96 01/23/2025 1:23 PM EDT Temperature - - Respiratory Rate - - Oxygen Saturation - - Inhaled Oxygen Concentration - - Weight - - Height - - Body Mass Index - - documented in this encounter Progress Notes * Matilde Nguyen PharmD - 01/23/2025 1:00 PM EDT Pharmacy Consult Visit Type: MTM Visit Pharmacist: Matilde Nguyen PharmD Referral Diagnosis: I10 (ICD-10-CM) - Primary hypertension Referral Expiration: 01/03/2026 Referring Provider: Liza Barboza MD Pharmacy Recommendations for Provider: Please consider initiating hydrochlorothiazide 12.5 mg orally once daily, followed by a BMP in 4 weeks. Patient reports at-home BP readings > 140/90 mmHg and is not currently taking any medications for hypertension Pharmacy advises against initiating any ACEi/ARB at this time due to reported LELA of facial swelling, which suggests a possible allergic reaction Please consider initiation of Jardiance 10 mg once daily 2021 AHA/ACC/HFSA guideline for the management of heart failure recommend the initiation of an SGLT2i as part of the regimen for heart failure, regardless of ejection fraction Please reassess FLP and LFT, recommended monitoring parameters 4 to 12 weeks after initiating a statin Please consider increasing colestipol to 2 grams once daily, followed by FLP in 4 to 12 weeks, as 2grams is the recommended maintenance dose Future consideration: can consider initiation of ezetimibe 10 mg once daily (to replace colestipol). 2018 AHA/ACC guideline on the management of blood cholesterol recommend initiation of ezetimibe and/or a PCK9 inhibitor after a maximum tolerated statin intensity in patients who do not meet cholesterol treatment goals. Per guidelines, colestipol may be considered in patients not meeting cholesterol goals on a maximally tolerated statin and ezetimibe Background/ Visit Intake Chiquis Lopez is a 49 y.o. patient here for a new patient visit. Visit completed over the phone. Allergies: is allergic to apple juice and codeine. Preferred Pharmacy: [facility]/pharmacy #[id number] - [place] - [address] [facility] [address] [facility] - [place] - [address] [facility] [id number] Medbox: No. Assessment & Plan Adherence: History: Medication Reconciliation: Denies use of the following medications that are active in [facility] medlist: Cyclobenzaprine: last filled 04/18/2024, patient denies use Lisinopril: last filled 07/23/2024, patient denies use (see hypertension/heart failure section) Diclofenac gel: last filled 02/07/2024, patient denies use Ketoconazole shampoo: last filled 12/14/2024, patient denies use Heliocare: last filled 09/15/2024, patient denies use Tretinoin cream: last filled 06/15/2024, patient denies use OTC medication, vitamin, supplement use: reports Loratadine 10 mg by mouth once daily as needed Adherence: Medication Organization: Takes from vials Missed doses: reports missing ursodiol afternoon dose 1 day/week Reports the following barriers to adherence: Difficulty remembering to take medications Read/Write: Yes, in Turkmen Denies interest in [facility] medbox program Goals of therapy: Improve adherence & minimize missed doses (<2 missed doses/week) Recommendations/Monitoring: Pharmacy updated medlist in [facility] to match patients current medication use Hypertension and heart failure: Pharmacologic Therapy: Lisinopril 20 mg by mouth once daily History: Patient denies taking lisinopril, reporting self-discontinuation of the medication about one month ago due to LELA including facial swelling and a cough Reports openness to starting an alternative class of medication for hypertension Reports checking their blood pressure sometimes when experiencing a headache Reports a BP reading of 170/90 mmHg last week Reports openness to starting medication for heart failure Patient checked blood pressure during todays visit, reported the following SMBP value: Date Blood pressure (mmHg) Heart rate (bpm) 01/23/2025 183/117 mmHg 96 01/23/2025 191/114 mmHg 102 Pertinent negatives include chest pain, head ache, blurry vision at this time Recent Blood Pressure values: BP Readings from Last 4 Encounters: 01/23/25 (!) 183/117 01/03/25 (!) 164/88 11/27/24 (!) 148/83 11/14/24 (!) 156/88 Pulse Readings from Last 4 Encounters: 01/23/25 96 01/03/25 84 11/14/24 90 09/21/24 81 Lab monitoring Lab Results Component Value Date NA 137 11/27/2024 K 3.9 11/27/2024 CREATININE 0.67 11/27/2024 EGFR >60 11/27/2024 Goals of Therapy per JNC 8: Achieve & maintain BP <140/90mmHg Plan: Patient messaged triage nurses about high blood pressure reading. Triage nurses instructed the patient to go to the [facility] Please consider initiating hydrochlorothiazide 12.5 mg orally once daily, followed by a BMP in 4 weeks. Patient reports at-home BP readings > 140/90 mmHg and is not currently taking any medications for hypertension Pharmacy advises against initiating any ACEi/ARB at this time due to reported LELA of facial swelling, which suggests a possible allergic reaction Please consider initiation of Jardiance 10 mg once daily 2021 AHA/ACC/HFSA guideline for the management of heart failure recommend the initiation of an SGLT2i as part of the regimen for heart failure, regardless of ejection fraction Education: Counseling was provided on the indications for use and potential LELA of hydrochlorothiazide and Jardiance Counseling was provided on the importance of taking hypertension medications, emphasizing that uncontrolled hypertension increases the risk of stroke, heart attack, and other complications. Patient verbalized understanding and is agreeable to starting a medication for hypertension Counseling provided to SMBP & log results for review in follow up. Reviewed BP goals, patient instructed to call office if extremes of BP are noted prior to follow up. ASCVD Risk Pharmacologic Therapy: Atorvastatin 10 mg by mouth once daily Colestipol 1 gram by mouth once daily History: Atorvastatin was started 11/28/2024 Patient reports that atorvastatin was initiated in place of lisinopril for high blood pressure Lab monitoring: Lab Results Component Value Date CHOL 266 (H) 11/27/2024 LDLCHOLCAL 164 (H) 11/27/2024 HDL 90 11/27/2024 TRIG 64 11/27/2024 AST 54 (H) 11/27/2024 ALT 55 (H) 11/27/2024 ALKPHOS 148 (H) 03/31/2023 The 10-year ASCVD risk score (Quang UNGER, et al., 2019) is: 3% Values used to calculate the score: Age: 49 years Sex: Female Is Non- : No Diabetic: No Tobacco smoker: No Systolic Blood Pressure: 183 mmHg Is BP treated: Yes HDL Cholesterol: 90 mg/dL Total Cholesterol: 266 mg/dL Goals of Therapy: ACC/AHA 2018 Cholesterol Guidelines: Ensure evidence based and safe use of medications for primary prevention of ASCVD. Plan: Please reassess FLP and LFT, recommended monitoring parameters 4 to 12 weeks after initiating a statin Please consider increasing colestipol to 2 grams once daily, followed by FLP in 4 to 12 weeks, as 2grams is the recommended maintenance dose Future consideration: can consider initiation of ezetimibe 10 mg once daily (to replace colestipol). 2018 AHA/ACC guideline on the management of blood cholesterol recommend initiation of ezetimibe and/or a PCK9 inhibitor after a maximum tolerated statin intensity in patients who do not meet cholesterol treatment goals. Per guidelines, colestipol may be considered in patients not meeting cholesterol goals on a maximally tolerated statin and ezetimibe Education Pharmacy educated the patient that atorvastatin is used for hypercholesterolemia and is not a hypertension medication. Patient verbalized understanding Hypothyroidism Pharmacologic therapy Levothyroxine 200 mcg by mouth once daily History Patient reports adherence to levothyroxine, however not reflected per dispense history: 90 day supply 10/03/2024, 06/17/2024, 03/21/2024 Lab monitoring Lab Results Component Value Date TSH 5.74 (H) 11/27/2024 TSH 9.61 (H) 03/31/2023 Plan Plan to continue levothyroxine 200 mcg once daily and revaluate once adherence is better established Education Pharmacy educated patient on the importance of adherence to levothyroxine. Patient verbalized understanding. Immunizations History: Immunization History Administered Date(s) Administered Hep B, adult 12/13/2015, 01/14/2016, 06/17/2018 Influenza injectable quadrivalent IIV4 with preservative 07/22/2015 Influenza, IIV3, injectable 09/24/2014 Influenza, Split (incl. purified surface antigen) 08/20/2008, 07/30/2009, 08/18/2010, 07/27/2011 Moderna Covid-19 Vaccine 12+ 03/05/2021, 04/02/2021 TD (adult), 2 Lf tetanus toxoid, preservative free, adsorbed 03/01/2003, 07/30/2005 Td (adult), unspecified 03/01/2003 Tdap 01/14/2016 Goals of therapy: Ensure patient is up to date per the CDC Adult Immunization Schedule. Assessment/Plan: Influenza 1341-6246 vaccine: Due COVID-19 vaccine: Due Hepatitis A series (Requests vaccination): Due Pneumococcal vaccines (age > 50): Due Shingrix series (age > 50 ): Due Plan: Patient declined all recommended vaccinations except for PCV20 Pharmacy scheduled patient for PCV20 vaccination on 01/31/2025 at [facility] vaccine clinic Education: Indication of all recommended vaccines Pharmacy educated the patient about the importance of receiving the Shingrix series, however patient declined Anticipated side effects of vaccination (redness at injection site, mild injection site pain) Patient Action Plan At this time patient does not have a need to follow-up with the MTM Program. If further medication therapy management is needed, please consider referring patient back. Thank you for your care in this patient. Continue to adhere to medication Follow with the [facility] 01/23/2025 for hypertension management Monitor blood pressure as directed Receive all recommended vaccinations Attend follow up appointments documented in this encounter Plan of Treatment Upcoming Encounters Date Type Department Care Team (Late st Contact Info) Description 02/22/2025 11:00 AM EDT Medication Management [facility] [address] [place] [address] Shonda Tucker PharmD [address] [place] [address] 04/06/2025 11:30 AM EDT Office Visit [facility] [address] [place] [address] Liza Barboza MD [address] [place] [phone] documented as of this encounter Visit Diagnoses Diagnosis Primary hypertension- Primary Unspecified essential hypertension Right-sided heart failure, unspecified HF chronicity (CMS/HCC) Hypothyroidism, unspecified type documented in this encounter Additional Health Concerns Assessment Noted Time PHQ-9 Depression Total Score: 1 03/25/20 23 11:11 AM EDT documented as of this encounter Care Teams Crm Coordinator Relationship Specialty Start Date End Date Liza Barboza MD [address] [place] [phone] PCP - General Family Medicine 10/17/15 documented as of this encounter
--- OUTSIDE RECORDS SUMMARY | 2025-02-05 16:17 | XMS_ITS | Encounter Summary ---
Author Organization [employer] Address [address] [place] [address] Care Team Providers Care Gig Tender Name Role Phone Liza Barboza MD Primary Care Provider [phone] Reason for Visit * Reason Comments Med Refill Encounter Details Date Type Department Care Team ([facility] Contact Info) Description 09/13/2024 Refill [facility] [address] [place] [address] Liza Barboza MD [address] [place] [address] Social History Tobacco Use Types Packs/Day Years [...] 11:00 AM EDT Medication Management [facility] [address] [place] [address] Shonda Tucker PharmD [address] [place] [address] 04/06/2025 11:30 AM EDT Office Visit [facility] [address] [place] [address] Liza Barboza MD [address] [place] [address] documented as of this encounter Visit Diagnoses Not on filedocumented in this encounter Additional Health Concerns Assessment Noted Time PHQ-9 Depression Total Score: 1 03/25/20 23 11:11 AM EDT documented as of this encounter Care Teams Gig Tender Relationship Specialty Start Date End Date Liza Barboza MD [address] [place] [address] PCP - General Family Medicine 10/17/15 documented as of this encounter
--- OUTSIDE RECORDS SUMMARY | 2025-02-05 16:17 | XMS_ITS | Clinical Summary ---
Author Organization [employer] Address [address] [place] [address] Care Team Providers Care Vp Talent Management Name Role Phone Liza Barboza MD Primary Care Provider [phone] Allergies Active Allergy Reactions Criticality Noted Date Comments Apple Juice 01/14/2016 Other Reaction(s): Lip Swelling, MOUTH ITCHY,SWELLING Codeine Palpitations Low 03/25/2023 Lisinopril Swelling,Cough 01/23/2025 Medications acetaminophen (Tylenol Extra Strength) 500 MG tablet Take 2 tablets (1,000 mg) by mouth every 8 (eight) hours if needed for mild pain. 60 tablet 09/27/20 23 Active naproxen (Naprosyn) 500 MG tablet TOME [...] 30 tablet 11 04/18/20 24 025 Active ursodiol (Actigall) 500 MG tablet TAKE 1 TABLET BY MOUTH THREE TIMES A DAY FOR 90 DAYS 270 tablet 3 05/03/20 24 Active fluticasone (Flonase) 50 MCG/ACT nasal spray USE 1 SPRAY IN BOTH NOSTRILS TWICE A DAY FOR 2 MONTHS 48 mL 3 05/26/20 24 Active hydroquinone 4 % creamIndication s:Melasma Apply topically 2 times daily. 30 mL 3 06/13/20 025 Active albuterol 108 (90 Base) MCG/ACT inhaler Inhale 2 puffs every 4 (four) hours if needed for wheezing. 18 g 11/21/19 026 Active atorvastatin (Lipitor) 10 MG tablet Take 1 tablet (10 mg) by mouth Once per day. 30 tablet 11 11/28/19 Active Bisacodyl EC 5 MG EC tablet Take 2 tablets by mouth at bedtime. 11/08/19 Active Zepbound 5 MG/0.5ML solution auto-injector Inject 5 mg under the skin every 7 (seven) days. 12/25/19 Active loratadine (Claritin) 10 MG tablet Take 1 tablet by mouth if needed each day for allergies. Active hydroCHLOROthia zide (HYDRODiuril) 25 MG tabletIndicatio ns:Primary hypertension Take 1 tablet (25 mg) by mouth Once per day. 30 tablet 11 01/24/20 026 Active Polypodium Leucotomos (Heliocare) 240 MG capsuleIndicati ons:Melasma TOME WILLIS CAPSULA TODOS LOS BHAT 30 capsule 3 07/09/20 025 Discontinued(Me d list cleanup (will not trigger notification to Pharmacy)) Diclofenac Sodium (Voltaren) 1 % gel Apply to area TID 100 g 3 10/19/20 23 025 Discontinued(Me d list cleanup (will not trigger notification to Pharmacy)) lisinopril 20 MG tabletIndicatio ns:Chronic right-sided heart failure (CMS/HCC) TOME WILLIS TABLETA TODOS LOS BHAT EN LA [facility] 90 tablet 3 12/02/19 24 025 Discontinued(Al ternate therapy) cyclobenzaprine (Flexeril) 10 MG tablet Take 1 tablet (10 mg) by mouth at bedtime for 10 days. 20 tablet 04/18/20 24 025 Discontinued(Me d list cleanup (will not trigger notification to Pharmacy)) tretinoin (Retin-A) 0.025 % creamIndication s:Melasma Apply topically at bedtime. 45 g 11 06/13/20 24 025 Discontinued(Me d list cleanup (will not trigger notification to Pharmacy)) ketoconazole (NIZOral) 2 % shampooIndicati ons:Seborrheic dermatitis Apply topically 2 (two) times a week. 120 mL 3 09/14/20 24 025 Discontinued(Me d list cleanup (will not trigger notification to Pharmacy)) Tirzepatide-Josh ght Management (Zepbound) 2.5 MG/0.5ML solution auto-injector Inject 0.5 mL (2.5 mg) under the skin 1 (one) time per week. 2 mL 3 11/21/19 25 025 Discontinued(Me d list cleanup (will not trigger notification to Pharmacy)) Tirzepatide-Josh ght Management (Zepbound) 5 MG/0.5ML solution Inject 5 mg under the skin 1 (one) time per week. 2 mL 2 12/22/19 25 025 Discontinued(Me d list cleanup (will not trigger notification to Pharmacy)) Tirzepatide-Josh ght Management (Zepbound) 7.5 MG/0.5ML solution auto-injector Inject 0.5 mL (7.5 mg) under the skin 1 (one) time per week. 2 mL 3 01/20/20 25 025 Discontinued(Me d list cleanup (will not trigger notification to Pharmacy)) Active Problems Problem Noted Date Diagnosed Date Class 1 obesity 02/11/2024 Hypertension 02/11/2024 Assessment & Plan (01/23/2025 6:45 PM EDT): Hx of hypertension, previously on ACEi/ARB. Had allergic reaction and stopped about 2 months ago. Since has had elevated BP at home. Uncontrolled with Pharmacist earlier today as well as during this visit. As per pharmacist recommendation will, -Start on droCHLOROthiazide (HYDRODiuril) 25 MG Take 1 tablet (25 mg) by mouth Once per day Perforation of right tympanic membrane Assessment & [...] Encounters Date Type Department Care Team Description 01/23/2025 6:40 PM EDT Office Visit [facility] [address] [address] Joseline Chen MD Primary hypertension (Primary Dx) 01/23/2025 1:00 PM EDT Telemedicine [facility] [address] [place] [phone] Matilde Nguyen, PharmD Primary hypertension (Primary Dx); Right-sided heart failure, unspecified HF chronicity (CMS/HCC); Hypothyroidism, unspecified type 01/23/2025 Travel 01/23/[address] [address] Matilde Nguyen, PharmAle 01/19/2025 Orders Only [facility] [address] [facility] [address] Liza Barboza MD 01/18/[address] [address] Liza Barboza MD Medication Question 01/12/2025 Population Health Risk Score [facility] () Department [address] [place] [phone] Provider, Population Health Generic 01/11/2025 Refill [facility] [address] [facility] [place] [address] Zaida Cortes MD Seborrheic dermatitis 01/04/[address] [address] Liza Barboza MD 01/03/2025 11:15 AM EST Office Visit [facility] [address] [facility] [place] [address] Liza Barboza MD Primary hypertension (Primary Dx); Class 1 obesity 01/03/2025 Travel 01/02/2025 Telephone [facility] [address] [facility] [facility] [address] Liza Barboza MD Chart Prep 12/27/2024 Patient Outreach [facility] [address] [facility] [place] [address] Liza Barboza MD Pre-visit Planning (SDOH negative, Tobacco screening negative. ) 12/22/2024 Orders Only [facility] [address] [facility] [place] [address] Liza Barboza MD 12/19/2024 Telephone [facility] [address] [facility] [place] [address] Liza Barboza MD Medication Question 11/29/2024 Telephone [facility] [address] [address] Liza Barboza MD Medication Question 11/28/2024 Orders Only [facility] [address] [facility] [place] [address] Liza Barboza MD 11/27/2024 10:30 AM EST Clinical Support [facility] [address] [facility] [place] [address] Jaci Walden RN Primary hypertension 11/27/2024 Orders Only [facility] [address] [facility] [place] [address] Liza Barboza MD 11/27/2024 Travel 11/21/2024 10:00 AM EST Telemedicine [facility] [address] [facility] [facility] [place] [address] Liza Barboza MD Class 1 obesity (Primary Dx); Primary hypertension; Hypothyroidism, unspecified type 11/21/2024 Telephone [facility] [address] [facility] [place] [address] Liza Barboza MD 11/21/2024 Travel 11/15/2024 Telephone [facility] [address] [place] [address] Liza Barboza MD Medication Question 11/14/2024 2:20 PM EST Office Visit [facility] [address] [address] Liza Barboza MD Allergic reaction, initial encounter (Primary Dx) 11/13/2024 Telephone [facility] [address] [facility] [place] [address] Liza Barboza MD Nurse Triage 11/08/2024 Orders Only GENERIC EXTERNAL DATA DEPARTMENT Provider, Generic External Data from Last 3 Months Immunizations Name Administration Dates Next Due Hep B, adult 06/17/2018,01/14/2016,12/13/2015 Influenza injectable quadriv alent IIV4 with preservative 07/22/2015 Influenza, IIV3, injectable 09/24/2014 Influenza, Split (incl. marilin fied surface antigen) 07/27/2011,08/18/2010,07/30/2009,2007 TD (adult), 2 Lf tetanus tox oid, preservative free, adsorbed 07/30/2005,03/01/2003 Td (adult), unspecified 03/01/2003 Tdap 01/14/2016 Social [...] Sign Reading Time Taken Comments Blood Pressure 152/98 01/23/2025 6:19 PM EDT Pulse 88 01/23/2025 6:08 PM EDT Temperature 36.7 ??C (98 ??F) 01/03/2025 11:32 AM EST Respiratory Rate 14 01/23/2025 6:08 PM EDT Oxygen Saturation 100% 11/27/2024 11:19 AM EST Inhaled Oxygen Concentration - - Weight 93.6 kg (206 lb 4 oz) 01/23/2025 6:08 PM EDT Height 161.3 cm (5' 3.5 ) 01/03/2025 11:32 AM ES T Body Mass Index 35.96 01/03/2025 11:32 AM EST Plan of Treatment Upcoming Encounters Date Type Department Care Team (Late st Contact Info) Description 02/22/2025 11:00 AM EDT Medication Management [facility] [address] [place] [address] Shonda Tucker, PharmD [address] [place] [address] 04/06/2025 11:30 AM EDT Office Visit [facility] [address] [place] [address] Liza Barboza MD [address] [place] [address] Health Maintenance Due Date Last Done Comments CT Colonography 1973 FIT DNA/Cologuard 1973 FIT 1973 FOBT 1973 Sigmoidoscopy 1973 Alcohol/Substance Use Screening 1985 Family Planning (PISQ) 1988 Hepatitis A Vaccines (1 of 2 - Risk 2-dose series) 1992 Pneumococcal Vaccine: 50+ Years (1 of 2 - PCV) 1992 Pap Smear 1994 Cervical Cancer Screening 2003 HPV/Cotest 2003 Zoster Vaccines (1 of 2) 2023 Depression Screening 03/25/2024 03/25/2023, 03/25/20 23 COVID-19 Vaccine ( season) 2024 04/02/2021, 03/05/2021 Influenza Vaccine (#1) 2025 5, 09/24/2014, 07/27/2011, Additional history exists Postponed from 07/02/2024 (Patient Refused) Diabetes: Hemoglobin A1C 11/08/2025 11/08/2024, 05/1 11/2021 SDOH Screening 12/27/2025 12/27/2024 Tobacco Screening 01/03/2026 01/03/2025 DTaP/Tdap/Td Vaccines (2 - Td or Tdap) 01/13/2026 01/14/2016, 07/30/2005, 03/01/2003, Additional history exists Mammogram 10/07/2026 10/07/2024, 1205/2024, 10/07/2024 Colonoscopy 09/14/2027 09/14/2017 Colorectal Cancer Screening 09/14/2027 Lipid Panel 11/27/2029 11/27/2024, 052 12/2023, 03/31/2023, Additional history exists RSV Patients and [...] Procedure Name Priority Date/Time Associated Diagnosis Comments T4, FREE Routine 11/27/2024 11:03 AM EST TSH W/REFLEX TO FT4 Routine 11/27/2024 1 [...] HM MAMMOGRAPHY Routine 10/07/2024 1:03 PM EST HEPATITIS C AB W/REFL TO HCV RNA, [...] Free T4 5.74(H) 0.32 - 4.0 uIU/mL [facility] Blood Venous blood specimen / Unknown 11/27/2024 11:03 AM EST 11/27/2024 2:21 PM EST us Liza Barboza MD LAB BLOOD ORDERABLES Final Resul t [facility] [address] [place] [phone] * T4, Free (11/27/2024 11:03 AM EST) Pathologist [facility] Free T4 (Free Thyroxine) 0.92 0.71 - 1.85 ng/dL [facility] 11/27/2024 11:0 3 AM EST 11/27/2024 2:21 PM EST Liza Barboza MD LAB BLOOD ORDERABLES Final Resul t Performing Organization Address City/[facility]/ZIP Co de Phone Number [facility] [address] [place] [phone] * (ABNORMAL) Hepatic Function Panel (11/27/2024 11:03 AM EST) Only the most recent of2 resultswithin the time period is included. [facility] Bilirubin, Total 0.7 0.0 - 1.0 mg/dL [facility] Bilirubin, Direct 0.3 0.0 - 0.5 mg/dL [facility] Aspartate Amino Transferase 54(H) 5 - 31 U/L [facility] Alanine Aminotransferase 55(H) 0 - 31 U/L [facility] Total Protein 8.3(H) 6.5 - 8.0 g/dL [facility] Albumin Level 3.7 3.5 - 5.0 g/dL [facility] Alkaline Phosphatase 272(H) 39 - 117 U/L [facility] Blood Venous blood specimen / Unknown 11/27/2024 11:03 AM EST 11/27/2024 2:21 PM EST Liza Barboza MD LAB BLOOD ORDERABLES Final Resul t Performing Organization Address City/[facility]/ZIP Co de Phone Number [facility] [address] [place] [phone] * (ABNORMAL) Lipid Panel, Standard (11/27/2024 11:03 AM EST) Triglycerides 64 <150 mg/dL [facility] Comment:Desirable Triglyceri de: less than 150 mg/dLBorderline High Triglyceride 150-199 mg/dLHigh Triglyceride: 200-499 mg/dLVery High Triglyceride: greater than or equal to 5OO mg/dL Cholesterol 266(H) <200 mg/dL [facility] Comment:Desirable Cholestero l: less than 200 mg/dLBorderline High Cholesterol: 200-239 mg/dLHigh Cholesterol: greater than 239 mg/dL LDL Cholesterol Calculated 164(H) <100 mg/dL [facility] Comment:Desirable LDL: less than 100 mg/dLNear Optimal/Above Optimal LDL: 110- 129 mg/dLBorderline High LDL: 130-159 mg/dLHigh LDL: 160-189 mg/dLVery High LDL: greater than or equal to 190 mg/dL HDL Cholesterol 90 >40 mg/dL [facility] Comment:Desirable HDL: great er than 40 mg/dL Note: This HDL assay may give artificially low results in patients with liver disease. Blood Venous blood specimen / Unknown 11/27/2024 11:03 AM EST 11/27/2024 2:21 PM EST us Liza Barboza MD LAB BLOOD ORDERABLES Final Resul t [facility] [address] [place] [phone] * Basic Metabolic Panel (11/27/2024 11:03 AM EST) Sodium 137 135 - 145 mmol/L [facility] Potassium 3.9 3.3 - 5.1 mmol/L [facility] Chloride 104 96 - 108 mmol/L [facility] Carbon Dioxide 24 22 - 29 mmol/L [facility] Anion Gap 13 12 - 20 [facility] Urea Nitrogen (BUN) 12 9 - 16 mg/dL [facility] Creatinine, Serum 0.67 0.5 - 1.4 mg/dL [facility] Estimated Glomerular Filt Rate >60 [facility] Comment:Chronic Kidney Disea se: Estimated GFR < 60 mL/min/1.64p5Ehbqiq Kidney Disease: Estimated GFR < 15 mL/min/1.73m2 Glucose 86 60 - 115 mg/dL [facility] Calcium 9.1 8.4 - 10.2 mg/dL [facility] Blood Venous blood specimen / Unknown 11/27/2024 11:03 AM EST 11/27/2024 2:21 PM EST us Liza Barboza MD LAB BLOOD ORDERABLES Final Resul t [facility] [address] [place] [address] [phone] * US Abdomen Comp w elastography (11/22/2024 9:41 AM EST) Anatomical Region Laterality Modality Abdomen Ultrasound 11/22/2024 9:41 AM EST Narrative 11/23/2024 7:38 AM EST ? [facility] ?[address] ?[place] [address] ? Ultrasound Report ? Signed ? Patient: Chiquis Hoffman ?MR# ?? : [id number] ? : 1975 ?Acct:[id number] ? Age/Sex: 49 / F ?ADM Date: 11/22/24 ? Loc: HO.US ? Attending Dr: Latasha GUNTERBC ? Ordering Physician: Latasha Walker ?? Date of Service: 11/22/24 ?? Procedure(s): US abdomen comp w elastography ?? Accession Number(s): [id number] ? cc: Latasha Walker; Liza Barboza MD [...] DD/ 0941 ? TD/TT: 11/22/24 0954 ? New Product Trainer: ? Procedure Note Gail, Stan - 11/23/[address] [address] Ultrasound Report Signed Patient: Chiquis HoffmanMR# : [id number] : 1975Acct:[id number] Age/Sex: 49 / FADM Date: 11/22/24 Loc: HO.US Attending Dr: Latasha Walker [facility] Ordering Physician: Latasha Walker Date of Service: 11/22/24 Procedure(s): US abdomen comp w elastography Accession Number(s): [id number] cc: Latasha Walker; Liza Barboza MD EXAMINATION: [...] Radiologists in Ultrasound Liver Stiffness Thresholds (2019): LIVER STIFFNESS THRESHOLDS: *Shear wave velocity less [...] Danny Caicedo MD 11/23/2024 07:36 AM EST Dictated By: Danny Caicedo MD Signed By: <Electronically signed by Danny Caicedo MD in OV> 11/23/24 0736 DD/ 0941 TD/TT: 11/22/24 0954 New Product Trainer: us [facility] External Provider IMG US PROCEDURES Final Result * (ABNORMAL) Liver Fibrosis (HCV), FibroTest-ActiTest Panel (11/08/2024 2:23 PM EST) Liver Fibrosis Score 0.09 [facility] Liver Fibrosis Stage F0 [facility] Liver Fibrosis Interpretation SEE NOTE [facility] Comment:no fibrosisFibro Maria Ines t [...] (severe fibrosis) Nec Inflam Act Score 0.19 [facility] Nec Inflam Act Grade A0-A1 [facility] Nec Inflam Act Interpretation SEE NOTE [facility] Comment:no activityActiTest Score (a) Metavir Score a>=0 and a<=0.17 : A0 (no activity)a>0.17 and a<=0.29 : A0-A1 (no activity)a>0.29 and a<=0.36 : A1 (minimal activity)a>0.36 and a<=0.52 : A1-A2 (minimal activity)a>0.52 and a<=0.60 : A2 (significant activity)a>0.60 and a<=0.62 : A2-A3 (significant activity)a>0.62 and a<=1.00 : A3 (severe activity) UCG-Rzxks-9-Macroglo bulin 193 106 - 279 mg/dL [facility] FIB-Haptoglobin 193 43 - 212 mg/dL [facility] FIB-Apolipoprotein A1 186 101 - 198 mg/dL [facility] FIB-Total Bilirubin 0.4 0.2 - 1.2 mg/dL [facility] FIB-GGT 43 3 - 70 U/L [facility] FIB-ALT 43(A) 6 - 29 U/L [facility] Reference ID [id number] [facility] Footnote SEE NOTE [facility] Comment: The reliability of results [...] and C.The performance characteristics have been determined by[employer] [facility]. Ithas not been cleared or approved by the U.S. Food and DrugAdministration. Performance characteristics refer to theanalytical performance of the test.Gigi Hill, the associated logo, [facility] and all associated [employer] brady are theregistered trademarks of [employer]. All third partymarks - (R) and (TM) - are the property of their respectiveowners. (C) [id number] [employer]. Allrights reserved.THIS TEST WAS PERFORMED AT:PHRQL/Bed[employer] [id number] [facility] [place] ??[phone] VALDIVIA MD,PHD,JOSÉ MIGUEL 11/08/2024 2:23 PM EST 11/08/2024 2:23 PM EST us Generic External Data Provider LAB BLOOD ORDERAB LES Final Result Performing Organization Address [facility]/ZIP Co de Phone Number [facility] [address] [place] [phone] * Hemoglobin A1c (11/08/2024 2:23 PM EST) Hemoglobin A1c 5.7 <6.0 % [facility] Comment:Hemoglobin A1C Refer ence Range Adults: 4.8 - 6.0 % Non diabetic: < 6.0 % Goal: < 7.0 %Additional Action Suggested: > 8.0 %Note: Hemoglobin A1c results are invalid for patients with abnormal amounts of HbF. Blood transfusions may impact the HbA1c concentration in the patient sample. Estimated Average Glucose 117 mg/dL [facility] Comment:eAG = Estimated ave rage glucose which is %A1C expressed asaverage glucose, using the formula of the M1J-HzzhccjWbwohfp Glucose study (ADAG), Diabetes Care, Vol.31,#8,Jun. 2007 11/08/2024 2:23 PM EST 11/08/2024 2:23 PM EST us Generic External Data Provider LAB BLOOD ORDERAB LES Final Result Performing Organization Address [facility] de Phone Number [facility] [address] [place] [phone] * Hm Mammography (10/07/2024 1:03 PM EST) Anatomical Region Laterality Modality Other us Historical Provider HEALTH MAINTENANCE Final Result * HIV-1 RNA, Quantitative, Real-Time PCR with Reflex to Genotype (RTI, PI, Integrase) (03/31/2023 9:04 AM EDT) HIV 1 RNA, QN PCR NOT DETECTED copies/mL [facility], HIV 1 RNA, QN PCR NOT DETECTED Log copies/mL [facility], Comment: REFERENCE RANGE: NOT DETECTED copies/mL ?NOT DETECTED ??Log copies/mL This test was performed using Real-Time Polymerase Chain Reaction. Reportable range is 20 to 10,000,000 copies/mL (1.30-7.00 Log copies/mL). 03/31/2023 9:04 AM EDT 03/31/2023 9:05 AM EDT Narrative [facility] - 04/03/2023 2:38 AM EDT FASTING:YES FASTING: YES Result [facility] Liza Barboza MD LAB BLOOD ORDERABLES Final Resul t Performing Organization Address [facility] Co de Phone Number [facility] [address], [facility] [place] [phone] [employer], [address] [place] [phone] * Hepatitis C Antibody with Reflex to HCV, RNA, Quantitative, Real-Time PCR (03/31/2023 9:04 AM EDT) Hepatitis C Antibody NON-REACT KUN NON-REACT KUN [employer] [place] Tip or Skip Index 0.06 <1.00 [employer] [place] Tip [facility] Skip Comment: HCV antibody was non-reactive. There is no laboratory evidence of HCV infection. In most cases, no further action is required. However, if recent HCV exposure is suspected, a test for HCV RNA (test code 03994) is suggested. For additional information please refer to http://education.Precog/faq/VMS31n7 (This link is being provided for informational/ educational purposes only.) Blood Venous blood specimen / Unknown 03/31/2023 9:04 AM EDT 03/31/2023 9:05 AM EDT Narrative [facility] - 04/03/2023 2:38 AM EDT FASTING:YES FASTING: YES Result [facility] Liza Barboza MD LAB BLOOD ORDERABLES Final Resul t Performing Organization Address City/[facility]/ZIP Co de Phone Number [facility] [address] [place] [address] [employer] [place] [place] [phone] * Hm Colonoscopy (09/14/2017) [facility] Signature Colonoscopy Normal Normal us Historical Provider HEALTH MAINTENANCE Final Result from Last 3 Months or Most Recently Relevant to Health Maintenance [facility] [employer] Care Teams Vp Talent Management Relationship Specialty Start Date End Date Liza Barboza MD [address] [place] [address] [place] [address] PCP - General Family Medicine 10/17/15
== END 2025-02-05 15:28 | disposition home or self-care (01) ==
LOC: HO.HGI 13:43
PROVIDERS: PCP Student in an Organized Health Care Education/Training Program; Visit Provider Nurse Practitioner Family
DX: K74.3 Primary biliary cirrhosis (principal); K59.01 Slow transit constipation; Z83.3 Family history of diabetes mellitus; D50.9 Iron deficiency anemia, unspecified
CPT/HCPCS: 99214

== ENCOUNTER → 2025-02-05 13:43 | Outpatient (BNVA) | payer MEDICAID, SELFPAY | PROVIDERS: PCP Student in an Organized Health Care Education/Training Program; Visit Provider Nurse Practitioner Family | DX: K74.3 Primary biliary cirrhosis (principal); K59.01 Slow transit constipation; D50.9 Iron deficiency anemia, unspecified; Z83.3 Family history of diabetes mellitus | CPT/HCPCS: 99212 ==

== ENCOUNTER 2025-02-23 11:53 | Outpatient (REF) | payer MEDICAID, SELFPAY ==
--- OUTSIDE RECORDS SUMMARY | 2025-02-23 12:47 | XMS_ITS | Data Portability ---
Author Organization [place] [facility], Allergy Address [address] [place] [address] Assessment Encounter Date Assessment Date Assessment LastModified [...] further evaluation of the ear and MHL. [email or web address] Not available 07/27/2024 16:38:15 Plan of Treatment Reminders Order Date Submit Date Provider Last Modified By Organization Details Last Modified Time Details Appointments None recorded. Lab None recorded. Referral None recorded. Procedures None recorded. Surgeries None recorded. Imaging None recorded. Medication Orders Ciprodex 0.3 %-0.1 % ear drops,susp ension [address] [facility], [address] [place] [address], [place], [place], [id number], 4 08:33:02 Patient TargetsNo targets recorded. Patient [...] sensorineur al hearing loss of right ear [id number] 5 Active 2023 PIYUSH CAMPOS [place], JAZMINE-A [address] [facility],[address] [facility], [place], [phone], [facility] [place] 4 14:40:40 Acute suppurative otitis media [id number] Active [address],[place] [address], [place], [phone], [facility] [place] 4 16:06:07 Otorrhea of right ear [id number] 106 Active 2023 CARA CHANEL PA-C [address] [place] [address],[place] [address], [place], [phone], [facility] [place] 4 16:32:24 Problem Notes None recorded. Procedures Surgical History Date Name Laterality Status Provider Name and Address Organization Details Recorded Time 07/27/2024 Comp Audio with Tymps (38890 & 93967) completed PIYUSH CAMPOS [place], [facility] [address] [facility],[place] [address], [place], [address], [facility] [place] 07/27/2024 14:39:56 Imaging Results Imaging Date Name Status LastModified by Organiz atformerly [facility] Details LastModified Time 07/28/2024 audiogram completed [email or web address] [...] ONCE DIRECTED BY [facility] DEPT AT [facility] active Not Available Not Available No [...] SNOMED-CT Code Diagnosis ICD10 Code Diagnosis Note [id number] CARA CHANEL PA-C [facility] of [address] [address] 07/27/2024 13:43:52 07/27/2024 15:42:20 Mixed conductive and sensorineural hearing loss of right ear [id number] 9105 H90.71 Audiologic al evaluation results: Right ear: {{Normal N ormal through 2 kHz Mild M oderate Mo derately-s evere Chleo re Profoun d Moderate -severe rising to [...] hermetic seal}} Otorrhea of right ear 10 [id number] 516688 H92.11 Health Concerns Section Related Observation LastModified by Organization Detai ls LastModified Time None Recorded Concern Status LastModified by Organization Details LastModified Time None Recorded Advance Directives Directive None Recorded Payers Encounter Date Sequence Insurance Name Policy Number Policy Lee Covered Member ID Lee Member ID Guarantor Name 07/27/[address] [place] [address] Chiquis Lopez [id number] Chiquis Lopez Notes Date Note Type Note [...] a hearing aid consult. CARA CHANEL PA-C [address] [place] [address], [phone], [facility] 07/27/2024 16:53:17 OBGyn Episode No OBEpisode recorded.
--- OUTSIDE RECORDS SUMMARY | 2025-02-23 12:47 | XMS_ITS | Clinical Summary ---
Author Organization [address] Address [address] [place] [phone] Phone Care Team Providers Care Cable Stretcher And Tester Name Role Phone Liza Barboza MD Primary Care Provider Allergies Active Allergy Reactions Criticality Noted Date [...] tension) Thyroid disorder DX:Thyroid diso rder Other vwdbb-tqg-vswnd infants DX:Other zmzug-fwj-ohlqx infants; COMMENT: cardiomegaly dx by sonogram with [...] PM EDT Office Visit Obstetrics and Gynecology [address] [address] Estefanía Arteaga, [facility] [address] [place] [address] Health Maintenance Due Date Last Done Comments [...] is recommended in 1 year. MAMMO LOCATION: [facility], [address] [place] [address], [phone], . -------- FINAL REPORT -------- Dictated By: Rebecca Hopper Dictated Date: 10/09/2024 14:19 ET Assigned Physician: Rebecca Hopper Reviewed and Electronically Signed By: Rebecca Hopper Signed Date: 10/09/2024 14:20 ET Workstation ID: [id number] Transcribed By: Self Edit Transcribed Date: 10/09/2024 [...] is recommended in 1 year. MAMMO LOCATION: [facility], [address] [place] [address], [phone], . -------- FINAL REPORT -------- Dictated By: Rebecca Hopper Dictated Date: 10/09/2024 14:19 ET Assigned Physician: Rebecca Hopper Reviewed and Electronically Signed By: Rebecca Hopper Signed Date: 10/09/2024 14:20 ET Workstation ID: [id number] Transcribed By: Self Edit Transcribed Date: 10/09/2024 14:19 ET Liza Barboza MD IMG BI PROCEDURES Final Result * Cervical Cancer Screening: HPV (12/10/2017) Pathologist [facility] Cervical Cancer Screening: HPV negative, abstracted Historical Provider HEALTH MAINTENANCE Final Result * Lipid panel (11/03/2001) Pathologist [facility] LDL/HDL Ratio 3 1 - 4 Triglycerides 42 10 - 140 mg/dL Cholesterol 159 10 - 200 mg/dL HDL 63 32 - 96 mg/dL LDL Cholesterol 88 62 - 185 mg/dL Blood Venous blood specimen / Unknown Historical Provider LAB BLOOD ORDERABLES Darlene l Result from Last 3 Months or Most Recently Relevant to Health Maintenance Insurance [place]ICA[place] - [place] Care Teams Cable Stretcher And Tester Relationship Specialty Start Date End Date Liza Barboza MD [address] [place] [phone] PCP - General 04/13/14
[2025-02-23 14:27] LABS: Anion Gap 14 (12-20); Blood Urea Nitrogen 14 mg/dL (9-16); Calcium 9.4 mg/dL (8.4-10.2); Carbon Dioxide 24 mmol/L (22-29); Chloride 100 mmol/L (96-108); Estimated Glomerular Filt Rate > 60; Glucose Random 100 mg/dL (60-115); Potassium 3.9 mmol/L (3.3-5.1); Sodium 134 mmol/L (135-145)
== END 2025-02-23 11:54 | disposition home or self-care (01) ==
LOC: HO.CHCLDS 11:53
PROVIDERS: Visit Provider Family Medicine
DX: I10 Essential (primary) hypertension (principal)
CPT/HCPCS: 36415; 80048

== ENCOUNTER 2025-03-22 11:57 | Outpatient (REF) | payer MEDICAID, SELFPAY ==
--- OUTSIDE RECORDS SUMMARY | 2025-03-22 12:23 | XMS_ITS | Encounter Summary ---
Author Organization [employer] Address [address] [facility] 7 [place] [address] Care Team Providers Care Floorworker Name Role Phone Liza Barboza MD Primary Care Provider [phone] Shonda Tucker PharmD Unavailable [phone] Encounter Details Date Type Department Care Team ([facility] Contact Info) Description 10/10/2024 Orders Only [facility] [address] [place] [address] Provider, MD Izabella Social History Tobacco Use [...] t he electric, gas, oil or water [employer] threatened to shut off services in your [...] Care Team (Late st Contact Info) Description 04/06/2025 11:30 AM EDT Office Visit [facility] MED & PEDS [address] [place] [address] Liza Barboza MD [address] [place] [address] 04/18/2025 11:00 AM EDT Telemedicine [facility] MED & PEDS [address] [place] [address] Shonda Tucker, PharmD 230 [place] [address] documented as of this encounter Procedures Procedure Name Priority Date/Time Associated Diagnosis Comments MAMMOGRAPHY Routine 10/07/2024 1:03 PM EST documented [...] documented as of this encounter Care Teams Floorworker Relationship Specialty Start Date End Date Liza Barboza MD [address] [place] [address] PCP - General Family Medicine 10/17/15 Shonda Tucker, ShanaD [address] [place] [address] Pharmacist Internal Medicine 02/22/25 documented as of this encounter
--- OUTSIDE RECORDS SUMMARY | 2025-03-22 12:23 | XMS_ITS | Encounter Summary ---
Author Organization [employer] Address [address] [facility] [address] 7 [place] [address] Care Team Providers Care Dictating Machine Transcriber Name Role Phone Liza Barboza MD Primary Care Provider Shonda Tucker PharmD Unavailable [phone] Reason for Visit * Reason Comments Med Refill Encounter Details Date Type Department Care Team ([facility] st Contact Info) Description 09/13/2024 Refill [facility]EDS [address] [place] [address] Lzia Barboza MD [address] [place] [address] Social History Tobacco Use Types Packs/Day Years [...] Description 04/06/2025 11:30 AM EDT Office Visit [facility] MED & PEDS [address] [place] [address] Liza Barboza MD [address] [place] [address] 04/18/2025 11:00 AM EDT Telemedicine [facility] MED & PEDS [address] [place] [address] Shonda Tucker PharmD [address] [place] [address] documented as of this encounter Visit Diagnoses Not on filedocumented in this encounter Additional Health Concerns Assessment Noted Time PHQ-9 Depression Total Score: 1 03/25/20 23 11:11 AM EDT documented as of this encounter Care Teams Dictating Machine Transcriber Relationship Specialty Start Date End Date Liza Barboza MD [address] [place] [address] PCP - General Family Medicine 10/17/15 Shonda Tucker PharmD [address] [place] [address] Pharmacist Internal Medicine 02/22/25 documented as of this encounter
--- OUTSIDE RECORDS SUMMARY | 2025-03-22 12:23 | XMS_ITS | Clinical Summary ---
Author Organization [employer] Address [address] [facility] [address] [place] [address] Care Team Providers Care Elevator Mechanic Apprentice Name Role Phone Liza Barboza MD Primary Care Provider [phone] Shonda Tucker PharmD Unavailable [phone] Allergies Active Allergy Reactions Criticality Noted Date Comments Apple Juice 01/14/2016 Other Reaction(s): Lip Swelling, MOUTH ITCHY,SWELLING Codeine Palpitations Low 03/25/2023 Lisinopril Swelling,Cough 01/23/2025 Medications acetaminophen (Tylenol Extra Strength) 500 MG tablet Take 2 tablets (1,000 mg) by mouth every 8 (eight) hours if needed for mild pain. 60 tablet 09/27/20 23 Active colestipol (Colestid) 1 g tablet Take [...] 30 mL 3 06/13/20 24 025 Active albuterol 108 (90 Base) MCG/ACT inhaler Inhale 2 puffs every 4 (four) hours if needed for wheezing. 18 g 11/21/19 026 Active atorvastatin (Lipitor) 10 MG tablet Take 1 tablet (10 mg) by mouth Once per day. 30 tablet 11/28/19 Active Bisacodyl EC 5 MG EC tablet Take 2 tablets by mouth at bedtime. 11/08/19 Active loratadine (Claritin) 10 MG tablet Take 1 tablet by mouth if needed each day for allergies. Active hydroCHLOROthia zide (HYDRODiuril) 25 MG tabletIndicatio ns:Primary hypertension Take 1 tablet (25 mg) by mouth Once per day. 30 tablet 01/24/20 Active Tirzepatide-Josh ght Management (Zepbound) 10 MG/0.5ML solution auto-injector Inject 0.5 mL (10 mg) under the skin 1 (one) time per week. 2 mL 02/22/20 025 Active amLODIPine (Norvasc) 5 MG tablet Take 1 tablet (5 mg) by mouth Once per day. 90 tablet 02/23/20 25 Active naproxen (Naprosyn) 500 MG tablet TOME WILLIS PABONA DOS VECES AL JANIS 60 tablet 02/04/20 24 025 Discontinued(Me d list cleanup (will not trigger notification to Pharmacy)) Zepbound 5 MG/0.5ML solution auto-injector Inject 5 mg under the skin every 7 (seven) days. 12/25/19 025 Discontinued(Me d list cleanup (will not [...] Encounters Date Type Department Care Team Description 03/22/2025 Travel 03/08/2025 Telephone [facility] MED & PEDS [address] [facility] [place] [address] Shonda Tucker, PharmD 03/07/2025 Telephone [facility] MEDICINE [address] [facility] [place] [address] Liza Barboza MD Prior Authorization 02/27/2025 Telephone [facility] MEDICINE [address] [facility] [place] [address] Liza Barboza MD Med Refill 02/22/2025 Travel 02/21/2025 Orders Only [facility] MED [facility] PEDS [address] [facility] [place] [address] Liza Barboza MD 02/20/2025 Telephone [facility] MEDICINE [address] [facility] [place] [address] Liza Barboza MD Medication Question 01/23/2025 6:40 PM EDT Office Visit [facility] [address] [facility] [place] [address] Joseline Chen MD Primary hypertension (Primary Dx) 01/23/2025 1:00 PM EDT Telemedicine [facility] [place] [address] aMtilde Nguyen, PharmD Primary hypertension (Primary Dx); Right-sided heart failure, unspecified HF chronicity ([facility]); Hypothyroidism, unspecified type 01/23/2025 Travel 01/23/2025 Telephone [facility] MEDICINE [address] [facility] [place] [address] Matilde Nguyen, PharmD 01/19/2025 Orders Only [facility] MED & PEDS [address] [facility] [place] [address] Liza Barboza MD 01/18/2025 Telephone [facility] MEDICINE [address] [place] [address] Liza Barboza MD Medication Question 01/12/2025 Population Health Risk Score [facility] (C[facility]) Department [address] [place] [phone] Provider, Population Health Generic 01/11/2025 Refill [facility] MED & PEDS [address] [place] [address] Zaida Cortes MD Seborrheic dermatitis 01/04/2025 Telephone [facility] MEDICINE [address] [place], [place] [phone] Liza Barboza MD 01/03/2025 11:15 AM EST Office Visit [facility] MED [facility] PEDS [address] [place] [address] Liza Barboza MD Primary hypertension (Primary Dx); Class 1 obesity 01/03/2025 Travel 01/02/2025 Telephone [facility] MED & PEDS [address] [place] [address] Liza Barboza MD Chart Prep 12/27/2024 Patient Outreach [facility] [address] [place], [place] [phone] Liza Barboza MD Pre-visit Planning (SDOH negative, Tobacco screening negative. ) from Last 3 Months Immunizations Immunization Administration Dates Next Due Hep B, adult [...] Sign Reading Time Taken Comments Blood Pressure 118/72 03/22/2025 11:32 AM EDT Pulse 80 03/22/2025 11:32 AM EDT Temperature 36.7 ??C (98 ??F) 01/03/2025 [...] Description 04/06/2025 11:30 AM EDT Office Visit [facility] MED [facility] PEDS [address] [place] [address] Liza Barboza MD [address] [place] [address] 04/18/2025 11:00 AM EDT Telemedicine [facility] MED [facility]S [address] [place] [address] Shonda Tucker, PharmD [address] [place] [address] Health Maintenance Due Date Last Done Comments CT Colonography 1973 FIT DNA/Cologuard 1973 FIT 1973 FOBT 1973 Sigmoidoscopy 1973 Disability Screening 1973 Alcohol/Substance Use Screening 1985 Family Planning (PISQ) 1988 Hepatitis A Vaccines (1 of 2 - Risk 2-dose series) 1992 Pneumococcal Vaccine: 50+ Years (1 of 2 - PCV) 1992 Pap Smear 1994 Cervical Cancer Screening 2003 HPV/Cotest 2003 Zoster Vaccines (1 of 2) 2023 Depression Screening 03/25/2024 03/25/2023, 03/25/20 23 COVID-19 Vaccine ( - season) 2024 04/02/2021, 03/05/2021 Influenza Vaccine (#1) 2025 5, 09/24/2014, 07/27/2011, Additional history exists Postponed from 07/02/2024 (Patient Refused) Diabetes: Hemoglobin A1C 11/08/2025 11/08/2024, 05/1 11/2021 SDOH Screening 12/27/2025 12/27/2024 Tobacco Screening 01/03/2026 01/03/2025 DTaP/Tdap/Td Vaccines (2 - Td or Tdap) 01/13/2026 01/14/2016, 07/30/2005, 03/01/2003, Additional history exists Mammogram 10/07/2026 10/07/2024, 05/2024, 10/07/2024 Colonoscopy 09/14/2027 09/14/2017 Colorectal Cancer Screening 09/14/2027 Lipid Panel 11/27/2029 11/27/2024, 05/12/2023, 03/31/2023, Additional history exists RSV [...] Procedure Name Priority Date/Time Associated Diagnosis Comments BASIC METABOLIC PANEL Routine 02/23/2025 11:55 AM EDT Primary hypertension LIPID PANEL, STANDARD Routine 11/27/2024 11:03 AM EST Primary hypertension HEMOGLOBIN A1C Routine 11/08/2024 2:23 PM EST MAMMOGRAPHY Routine 10/07/2024 1:03 PM EST HEPATITIS C AB W/REFL TO HCV RNA, QN, PCR Routine 03/31/2023 9:04 AM EDT Immunization overdue HIV 1 RNA, QN PCR W/RFL IRMA (RTI,PI,INTEGRASE) Routine 03/31/2023 9:04 AM EDT Immunization overdue COLONOSCOPY Routine 09/14/2017 from Last 3 Months or Most Recently Relevant to Health Maintenance Results * (ABNORMAL) Basic Metabolic Panel (02/23/2025 11:55 AM EDT) Sodium 134(L) 135 - 145 mmol/L [facility] Potassium 3.9 3.3 - 5.1 mmol/L [facility] Chloride 100 96 - 108 mmol/L [facility] Carbon Dioxide 24 22 - 29 mmol/L [facility] Anion Gap 14 12 - 20 [facility] Urea Nitrogen (BUN) 14 9 - 16 mg/dL [facility] Creatinine, Serum 0.67 0.5 - 1.4 mg/dL [facility] Estimated Glomerular Filt Rate >60 [facility] Comment:Chronic Kidney Disea se: Estimated GFR < 60 mL/min/1.40f1Tujpsg Kidney Disease: Estimated GFR < 15 mL/min/1.73m2 Glucose 100 60 - 115 mg/dL [facility] Calcium 9.4 8.4 - 10.2 mg/dL [facility] Blood Venous blood specimen / Unknown 02/23/2025 11:55 AM EDT 02/23/2025 2:08 PM EDT us Joseline Chen MD LAB BLOOD ORDERABLES Final Result [facility] [address] [place] [phone] * (ABNORMAL) Lipid Panel, Standard (11/27/2024 11:03 AM EST) Triglycerides 64 <150 mg/dL [facility] Comment:Desirable Triglyceri de: less than 150 mg/dLBorderline High Triglyceride 150-199 mg/dLHigh Triglyceride: 200-499 mg/dLVery High Triglyceride: greater than or equal to 5OO mg/dL Cholesterol 266(H) <200 mg/dL [facility] Comment:Desirable Cholestero l: less than 200 mg/dLBorderline High Cholesterol: 200-239 mg/dLHigh Cholesterol: greater than 239 mg/dL LDL Cholesterol Calculated 164(H) <100 mg/dL [facility] Comment:Desirable LDL: less than 100 mg/dLNear Optimal/Above Optimal LDL: 110- 129 mg/dLBorderline High LDL: 130-159 mg/dLHigh LDL: 160-189 mg/dLVery High LDL: greater than or equal to 190 mg/dL HDL Cholesterol 90 >40 mg/dL [facility] Comment:Desirable HDL: great er than 40 mg/dL Note: This HDL assay may give artificially low results in patients with liver disease. Blood Venous blood specimen / Unknown 11/27/2024 11:03 AM EST 11/27/2024 2:21 PM EST us Liza Barboza MD LAB BLOOD ORDERABLES Final Resul t Performing Organization Address City/[facility]/ZIP Co de Phone Number [facility] [address] [place] [phone] * Hemoglobin A1c (11/08/2024 2:23 PM EST) Hemoglobin A1c 5.7 <6.0 % [facility] Comment:Hemoglobin A1C Refer ence Range Adults: 4.8 - 6.0 % Non diabetic: < 6.0 % Goal: < 7.0 %Additional Action Suggested: > 8.0 %Note: Hemoglobin A1c results are invalid for patients with abnormal amounts of HbF. Blood transfusions may impact the HbA1c concentration in the patient sample. Estimated Average Glucose 117 mg/dL [facility] Comment:eAG = Estimated ave rage glucose which is %A1C expressed asaverage glucose, using the formula of the R9N-LvqvxboDqnrwlj Glucose study (ADAG), Diabetes Care, Vol.31,#8,Aug. 2007 11/08/2024 2:23 PM EST 11/08/2024 2:23 PM EST us Generic External Data Provider LAB BLOOD ORDERAB LES Final Result Performing Organization Address [facility]/ZIP Co de Phone Number [facility] [address] [place] [phone] * Hm Mammography (10/07/2024 1:03 PM EST) Anatomical Region Laterality Modality Other us Historical Provider HEALTH MAINTENANCE Final Result * HIV-1 RNA, Quantitative, Real-Time PCR with Reflex to Genotype (RTI, PI, Integrase) (03/31/2023 9:04 AM EDT) Pathologist [facility] HIV 1 RNA, QN PCR NOT DETECTED copies/mL [facility], HIV 1 RNA, QN PCR NOT DETECTED Log copies/mL [facility], Comment: REFERENCE RANGE: NOT DETECTED copies/mL ?NOT DETECTED ??Log copies/mL This test was performed using Real-Time Polymerase Chain Reaction. Reportable range is 20 to 10,000,000 copies/mL (1.30-7.00 Log copies/mL). 03/31/2023 9:04 AM EDT 03/31/2023 9:05 AM EDT Narrative [facility] - 04/03/2023 2:38 AM EDT FASTING:YES FASTING: YES Liza Barboza MD LAB BLOOD ORDERABLES Final Resul t [facility] [address], [place] [address] [employer], [address] [place] [address] * Hepatitis C Antibody with Reflex to HCV, RNA, Quantitative, Real-Time PCR (03/31/2023 9:04 AM EDT) [facility] Hepatitis C Antibody NON-REACT KUN NON-REACT KUN [employer] [place] [employer] Index 0.06 <1.00 [employer] [place] [employer] Comment: HCV antibody was non-reactive. There is no laboratory evidence of HCV infection. In most cases, no further action is required. However, if recent HCV exposure is suspected, a test for HCV RNA (test code 91524) is suggested. For additional information please refer to http://education.Wizdee/faq/WZA52i7 (This link is being provided for informational/ educational purposes only.) Blood Venous blood specimen / Unknown 03/31/2023 9:04 AM EDT 03/31/2023 9:05 AM EDT Narrative [facility] - 04/03/2023 2:38 AM EDT FASTING:YES FASTING: YES Liza Barboza MD LAB BLOOD ORDERABLES Final Resul t [facility] [address], [place] [phone] [employer] [facility] [address] [place] [phone] * Colonoscopy (09/14/2017) Colonoscopy Normal Normal Historical Provider HEALTH MAINTENANCE Final Result from Last 3 Months or Most Recently Relevant to Health Maintenance Insurance [facility] C3 Care Teams Elevator Mechanic Apprentice Relationship Specialty Start Date End Date Liza Barboza MD [address] [place] [address] PCP - General Family Medicine 10/17/15 Shonda Tucker, ShanaD [address] [place] [address] Pharmacist Internal Medicine 02/22/25
--- OUTSIDE RECORDS SUMMARY | 2025-03-22 12:23 | XMS_ITS | Encounter Summary ---
Author Organization [employer] Address [address] 7t [place] [address] Care Team Providers Care Screen Vent Binder Name Role Phone Liza Barboza MD Primary Care Provider [phone] Shonda Tucker PharmD Unavailable [phone] Reason for Visit * Reason Onset Date Comments Medication Question 02/20/2025 Encounter Details Date Type Department Care Team ([facility] Contact Info) Description 02/20/2025 Telephone [facility] MEDICINE 230 [place], [place] [phone] Liza Barboza MD [address] [place], [place] [phone] Medication Question Social History Tobacco Use Types Packs/Day Years Used Date Smoking Tobacco: Never Smokeless Tobacco: Never Alcohol Use Standard Drinks/Week Comments Never 0 (1 standard drink = 0.6 oz pur e alcohol) Depression Answer Date Recorded Patient Health Questionnaire-9 Score 1 03/25/2023 Housing Stability Answer Date Recorded What is your housing situation today? I have rebel sing 07/11/[address] you li [...] encounter Miscellaneous Notes * Telephone Encounter - Lzia Barboza MD - 02/21/2025 12:13 PM EDT done * Telephone Encounter - Geraldien Ann - 02/20/2025 9:06 AM EDT Tc from pt requesting Tirzepatide-Weight Management (Zepbound) 10 MG/0.5ML solution auto-injector. To be sent to: [facility]/pharmacy #[id number] HERMILO LEE [address] documented in this encounter Plan of Treatment Upcoming Encounters Date Type Department Care Team ([facility] st Contact Info) Description 04/06/2025 11:30 AM EDT Office Visit [facility] MED & PEDS [address] [place] [address] Liza Barboza MD 505 [place] [address] 04/18/2025 11:00 AM EDT Telemedicine [facility] MED & PEDS [address] [place] [address] Shonda Tucker, Merry [address] [place] [address] documented as of this encounter Visit Diagnoses Not on filedocumented in this encounter Additional Health Concerns Assessment Noted Time PHQ-9 Depression Total Score: 1 03/25/20 23 11:11 AM EDT documented as of this encounter Care Teams Screen Vent Binder Relationship Specialty Start Date End Date Liza Barboza MD 230 [place] [address] PCP - General Family Medicine 10/17/15 Shonda Tucker, Merry [address] [place] [address] Pharmacist Internal Medicine 02/22/25 documented as of this encounter
--- OUTSIDE RECORDS SUMMARY | 2025-03-22 12:23 | XMS_ITS | Encounter Summary ---
Author Organization [employer] Address [address] 7t [place] [address] Care Team Providers Care Logistics Management Specialist Name Role Phone Liza Barboza MD Primary Care Provider [phone] Shonda Tucker PharmD Unavailable [phone] Reason for Visit * Reason Onset Date Comments Med Refill 02/27/2025 Encounter Details Date Type Department Care Team ([facility] Contact Info) Description 02/27/2025 Telephone [facility] MEDICINE 230 [place], [place] [phone] Liza Barboza MD 505 [place], [place] [phone] Med Refill Social History Tobacco Use Types [...] encounter Miscellaneous Notes * Telephone Encounter - Cris Horn LPN - 02/27/2025 9:08 AM EDT Script was sent to [facility] #[id number] on 02/21/25 patient can call pharmacy and transfer medication. * Telephone Encounter - Juan Niño - 02/27/2025 8:32 AM EDT TC from pt requesting medication refill. Medications needing refill : Tirzepatide-Weight Management (Zepbound) 10 MG/0.5ML solution auto-injector To be sent to: [facility] [place] - [address] [facility] documented in this encounter Plan of Treatment Upcoming Encounters Date Type Department Care Team (Late st Contact Info) Description 04/06/2025 11:30 AM EDT Office Visit [facility] MED & PEDS [address] [place] [address] Liza Barboza MD [address] [place] [address] 04/18/2025 11:00 AM EDT Telemedicine [facility] MED & PEDS 505 [place] [address] Shonda Tucker, Merry [address] [place] [address] documented as of this encounter Visit Diagnoses Not on filedocumented in this encounter Additional Health Concerns Assessment Noted Time PHQ-9 Depression Total Score: 1 03/25/20 23 11:11 AM EDT documented as of this encounter Care Teams Logistics Management Specialist Relationship Specialty Start Date End Date Liza Barboza MD [address] [place] [address] PCP - General Family Medicine 10/17/15 Shonda Tucker, Merry [address] [place] [address] Pharmacist Internal Medicine 02/22/25 documented as of this encounter
--- OUTSIDE RECORDS SUMMARY | 2025-03-22 12:23 | XMS_ITS | Encounter Summary ---
Author Organization [employer] Address [address] [facility] 7 [place] [address] Care Team Providers Care Repairer Recreational Vehicle Name Role Phone Liza Barboza MD Primary Care Provider [phone] Shonda Tucker PharmD Unavailable [phone] Reason for Visit * Reason Onset Date Comments Nurse Triage 07/15/2023 Encounter Details Date Type Department Care Team ([facility] Contact Info) Description 07/15/2023 Telephone [facility] MED & PEDS 505 [place] [address] Liza Barboza MD 505 [place] [address] Nurse Triage Social History Tobacco Use Types [...] 07/15/2023 1:05 PM EDT Triage call with [employer] Pump Service Supervisor Id [id number] Pt reports lower back pain mainly right [...] accepted this outcome Please contact pt at [phone] (Lebanese) documented in this encounter Plan of Treatment Upcoming Encounters Date Type Department Care Team ([facility] st Contact Info) Description 04/06/2025 11:30 AM EDT Office Visit [facility] MED & PEDS 505 [place] [address] Liza Barboza MD 505 [place] [address] 04/18/2025 11:00 AM EDT Telemedicine [facility] MED & PEDS [address] [place] [address] Shonda Tucker, PharmD 230 [place] [address] documented as of this encounter Visit Diagnoses Not on filedocumented in this encounter Additional Health Concerns Assessment Noted Time PHQ-9 Depression Total Score: 1 03/25/20 23 11:11 AM EDT documented as of this encounter Care Teams Repairer Recreational Vehicle Relationship Specialty Start Date End Date Liza Barboza MD 230 [place] [address] PCP - General Family Medicine 10/17/15 Shonda Tucker PharmD [address] [place] [address] Pharmacist Internal Medicine 02/22/25 documented as of this encounter
--- OUTSIDE RECORDS SUMMARY | 2025-03-22 12:23 | XMS_ITS | Encounter Summary ---
Author Organization [employer] Address [address] [facility] [address], [place] [address] Care Team Providers Care Analytics Architect Name Role Phone Liza Barboza MD Primary Care Provider [phone] Shonda Tucker PharmD Unavailable [phone] Reason for Visit * Reason Onset Date Comments Med Refill 12/04/2022 Encounter Details Date Type Department Care Team ([facility] st Contact Info) Description 12/04/2022 Refill [facility] MED & PEDS 505 [place] [address] Liza Barboza MD 505 [place] [address] Acquired hypothyroidism (Primary Dx) Social History Tobacco [...] Levethyroxine 150 mcg tablet Please sent to [facility] Pharmacy #[id number] [address] [place] [address] documented in this encounter Plan of Treatment Upcoming Encounters Date Type Department Care Team (Late st Contact Info) Description 04/06/2025 11:30 AM EDT Office Visit [facility] MED & PEDS [address] [place] [address] Liza Barboza MD 505 [place] [address] 04/18/2025 11:00 AM EDT Telemedicine [facility] MED & PEDS [address] [place] [address] Shonda Tucker PharmD 230 [place] [address] documented as of this encounter Visit Diagnoses Diagnosis Acquired hypothyroidism- Primary Unspecified hypothyroidism documented in this encounter Care Teams Analytics Architect Relationship Specialty Start Date End Date Liza Barboza MD [address] [place] [address] PCP - General Family Medicine 10/17/15 Shonda Tucker, PharmD [address] [place] [address] Pharmacist Internal Medicine 02/22/25 documented as of this encounter
--- OUTSIDE RECORDS SUMMARY | 2025-03-22 12:23 | XMS_ITS | Data Portability ---
Author Organization [place] [facility] Address [address] [place] [phone] Assessment Encounter Date Assessment Date Assessment LastModified [...] further evaluation of the ear and MHL. [email or web address] Not available 07/27/2024 16:38:15 Plan of Treatment Reminders Order Date Submit Date Provider Last Modified By Organization Details Last Modified Time Details Appointments Hearing Test 2024 03:30P M Hearing Test Not available Not available Not available Otology Referral 30 2024 04:00P M AMBROSIO DEAN MD Not available Not available Not available Lab None recorded. Referral None recorded. Procedures None recorded. Surgeries None recorded. Imaging None recorded. Medication Orders Ciprodex 0.3 %-0.1 % ear drops,jean paul pension 2023 024 [facility], [address] , [place], [place], [id number], 07/28/2024 08:33:02 Patient TargetsNo targets recorded. Patient InstructionsNo instructions recorded. Reason for Referral None Reported. Results Created Date Observation Date Name Description Value Unit Range Abnormal Flag Note LastModifiedBy Organization Detail LastModifiedTime 07/28/20 24 audio gram No observ ation record ed. [email or web address] Not Available 2023 16:17:04 Result Notes None recorded. 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 [place] 4 14:40:40 Acute suppurative otitis media 773460800 Active 2023 LORAINE PATEL [address] [facility],[place] [address], [place], [address], [facility] - [facility] [place] 4 16:06:07 Otorrhea of right ear 8187304638922 106 Active 2023 CARA CHANEL PA-C [address] [facility], [place], [address], [facility] [place] 4 16:32:24 Problem Notes None recorded. Procedures Surgical History Date Name Laterality Status Provider Name and Address Organization Details Recorded Time 07/27/2024 Comp Audio with Tymps - 21834 & 92659 completed PIYUSH CAMPOS [place], CCC-A [address] [facility] [address], [place], [address], [facility] - [facility] [place] 07/27/2024 14:39:56 Imaging Results Imaging Date Name [...] ONCE DIRECTED BY GASTROENTER OLOGY DEPT AT [facility] active Not Available Not Available No [...] SNOMED-CT Code Diagnosis ICD10 Code Diagnosis Note [id number] CARA CHANEL PA-C [facility] of [address] [address] 07/27/2024 13:43:52 07/27/2024 15:42:20 Mixed conductive and sensorineural hearing loss of right ear [id number] 9105 H90.71 Audiologic al evaluation results: Right [...] hermetic seal}} Otorrhea of right ear 10 [id number] 907783 H92.11 Health Concerns Section Related Observation LastModified by Organization Detai ls LastModified Time None Recorded Concern Status LastModified by Organization Details LastModified Time None Recorded Advance Directives Directive None Recorded Payers Insurance Date Sequence Insurance Name Policy Number Policy Lee Covered Member ID Lee Member ID Guarantor Name 08/18/2024 2 [employer] Chiquis Lopez [id number] Chiquis Lopez 08/21/2024 2 [facility] - COMMONHEALTH (MEDICAID HMO) Chiquis Lopez [id number] Chiquis Lopez 11/13/2024 2 [place] Chiquis Lopez [id number] Chiquis Lopez 11/13/2024 1 [facility] Chiquis Lopez [id number] Chiquis Lopez Notes Date Note Type Note [...] a hearing aid consult. CARA CHANEL PA-C [address] [place] [address], [phone], [facility] - [facility] 07/27/2024 16:53:17 OBGyn Episode No OBEpisode recorded.
--- OUTSIDE RECORDS SUMMARY | 2025-03-22 12:23 | XMS_ITS | Encounter Summary ---
Author Organization [employer] Address [address] 7[address] [place] [address] Care Team Providers Care Teletypist Name Role Phone Liza Barboza MD Primary Care Provider [phone] Shonda Tucker PharmD Unavailable [phone] Reason for Visit * Reason Onset Date Comments Medication Question 12/19/2024 Encounter Details Date Type Department Care Team ([facility] Contact Info) Description 12/19/2024 Telephone [facility] MED & PEDS 505 [place] [address] Liza Barboza MD 505 [place] [address] Medication Question Social History Tobacco Use Types [...] Upcoming Encounters Date Type Department Care Team ([facility] st Contact Info) Description 04/06/2025 11:30 AM EDT Office Visit [facility] MED & PEDS [address] [place] [id number] Liza Barboza MD 505 [place] [id number] 04/18/2025 11:00 AM EDT Telemedicine [facility] MED & PEDS [address] [facility] [address] Shonda Tucker, PharmD 230 [place] [address] documented as of this encounter Visit Diagnoses Not on filedocumented in this encounter Additional Health Concerns Assessment Noted Time PHQ-9 Depression Total Score: 1 03/25/20 23 11:11 AM EDT documented as of this encounter Care Teams Teletypist Relationship Specialty Start Date End Date Liza Barboza MD 230 [place] [address] PCP - General Family Medicine 10/17/15 Shonda Tucker PharmD 230 [place] [address] Pharmacist Internal Medicine 02/22/25 documented as of this encounter
--- OUTSIDE RECORDS SUMMARY | 2025-03-22 12:23 | XMS_ITS | Encounter Summary ---
Author Organization [employer] Address [address] [facility] 7 [place] [address] Care Team Providers Care Fretted Instruments Inspector Name Role Phone Liza Barboza MD Primary Care Provider [phone] Shonda Tucker PharmD Unavailable [phone] Encounter Details Date Type Department Care Team ([facility] Contact Info) Description 01/23/2025 Telephone [facility] MEDICINE 230 [place], [place] [phone] Matilde Nguyen PharmD 230 [place], [place] [phone] Social History Tobacco Use Types Packs/Day Years [...] encounter Miscellaneous Notes * Telephone Encounter - Maddei Gallo RN - 01/23/2025 1:45 PM EDT [...] 102. Pt instructed to seek WIC at [facility] for repeat BP check, full exam and to start plan for HTN management. Pt states will attempt to get to [facility]. Reviewed risks of uncontrolled Elevated BP including [...] Update Description Specialty Today -- Family Medicine [facility] Medicine Matilde Nguyen Open Yesterday Medication Question [facility] Medicine [facility] Medicine Liza Barboza Closed 1 week ago Meds refused: 1 [facility] Med & Peds Zaida Cortes Open 2 weeks ago -- [facility] Medicine Liza Barboza Closed 3 weeks ago Chart Prep [facility] Med & Peds Liza Barboza Closed There are additional recent communications with this patient. View the rest in Chart Review. documented in this encounter Plan of Treatment Upcoming Encounters Date Type Department Care Team (Late st Contact Info) Description 04/06/2025 11:30 AM EDT Office Visit [facility] MED & PEDS [address] [place] [address] Liza Barboza MD 505 [place] [address] 04/18/2025 11:00 AM EDT Telemedicine [facility] MED & PEDS [address] [place] [address] Shonda Tucker PharmD [address] [place] [address] documented as of this encounter Visit Diagnoses Not on filedocumented in this encounter Additional Health Concerns Assessment Noted Time PHQ-9 Depression Total Score: 1 03/25/20 11:11 AM EDT documented as of this encounter Care Teams Fretted Instruments Inspector Relationship Specialty Start Date End Date Liza Barboza MD [address] [place] [address] PCP - General Family Medicine 10/17/15 Shonda Tucker PharmD [address] [place] [address] Pharmacist Internal Medicine 02/22/25 documented as of this encounter
--- OUTSIDE RECORDS SUMMARY | 2025-03-22 12:23 | XMS_ITS | Encounter Summary ---
Author Organization [employer] Address [address] [place] [address] Care Team Providers Care Gas Burner Operator Name Role Phone Liza Barboza MD Primary Care Provider [phone] Shonda Tucker PharmD Unavailable [phone] Reason for Visit * Reason Onset Date Comments Call Back Request 09/29/2023 Encounter Details Date Type Department Care Team ([facility] Contact Info) Description 09/29/2023 Telephone [facility] MEDICINE 230 [place], [place] [phone] Liza Barboza MD 505 [place], [place] [phone] Call Back Request Social History Tobacco Use [...] - Ray results states [place] [facility] howeverwriter does not see anything on chart documented in this encounter Plan of Treatment Upcoming Encounters Date Type Department Care Team (Late st Contact Info) Description 04/06/2025 11:30 AM EDT Office Visit [facility] MED & PEDS 505 [facility] [place] [address] Liza Barboza MD 505 [place] [address] 04/18/2025 11:00 AM EDT Telemedicine [facility] MED & PEDS 505 [facility] [place] [address] Shonda Tucker PharmD [address] [place] [address] documented as of this encounter Visit Diagnoses Not on filedocumented in this encounter Additional Health Concerns Assessment Noted Time PHQ-9 Depression Total Score: 1 03/25/20 23 11:11 AM EDT documented as of this encounter Care Teams Gas Burner Operator Relationship Specialty Start Date End Date Liza Barboza MD [address] [place] [address] PCP - General Family Medicine 10/17/15 Shonda Tucker PharmD [address] [place] [address] Pharmacist Internal Medicine 02/22/25 documented as of this encounter
--- OUTSIDE RECORDS SUMMARY | 2025-03-22 12:23 | XMS_ITS | Encounter Summary ---
Author Organization [employer] Address [address] [place] [address] Care Team Providers Care Physician Office Specialist Name Role Phone Liza Barboza MD Primary Care Provider [phone] Shonda Tucker PharmD Unavailable Reason for Visit * Reason Onset Date Comments Med Refill 06/09/2024 Encounter Details Date Type Department Care Team ([facility] Contact Info) Description 06/09/2024 Telephone [facility] MEDICINE 230 [place], [place] [phone] Liza Barboza MD 505 [place], [place] [phone] Med Refill Social History Tobacco Use Types [...] 4 % cream To be sent to: [facility]/pharmacy #[id number] documented in this encounter Plan of Treatment Upcoming Encounters Date Type Department Care Team (Late st Contact Info) Description 04/06/2025 11:30 AM EDT Office Visit [facility] MED & PEDS 505 [place] [address] Liza Barboza MD 505 [place] [address] 04/18/2025 11:00 AM EDT Telemedicine [facility] MED & PEDS 505 [place] [address] Shonda Tucker, PharmD 230 [place], [place] [phone] documented as of this encounter Visit Diagnoses Not on filedocumented in this encounter Additional Health Concerns Assessment Noted Time PHQ-9 Depression Total Score: 1 03/25/20 23 11:11 AM EDT documented as of this encounter Care Teams Physician Office Specialist Relationship Specialty Start Date End Date Liza Barboza MD [address] [place] [address] PCP - General Family Medicine 10/17/15 Shonda Tucker PharmD [address] [place] [address] Pharmacist Internal Medicine 02/22/25 documented as of this encounter
--- OUTSIDE RECORDS SUMMARY | 2025-03-22 12:23 | XMS_ITS | Encounter Summary ---
Author Organization [employer] Address [address] [facility] 7 [place] [address] Care Team Providers Care Loss Prevention Manager Name Role Phone Liza Barboza MD Primary Care Provider [phone] Shonda Tucker PharmD Unavailable [phone] Reason for Visit * Reason Comments Med Refill Encounter Details Date Type Department Care Team ([facility] Contact Info) Description 01/11/2025 Refill [facility] MED & PEDS 505 [place] [address] Zaida Cortes MD 505 [place] [address] Seborrheic dermatitis Social History Tobacco Use Types [...] Description 04/06/2025 11:30 AM EDT Office Visit [facility] MED & PEDS 505 [place] [address] Liza Barboza MD 505 [place] [address] 04/18/2025 11:00 AM EDT Telemedicine [facility] MED & PEDS 505 [place] [address] Shonda Tucker, Merry [address] [place] [address] documented as of this encounter Visit Diagnoses Diagnosis Seborrheic dermatitis Unspecified seborrheic dermatitis documented in this encounter Additional Health Concerns Assessment Noted Time PHQ-9 Depression Total Score: 1 03/25/20 23 11:11 AM EDT documented as of this encounter Care Teams Loss Prevention Manager Relationship Specialty Start Date End Date Liza Barboza MD [address] [place] [address] PCP - General Family Medicine 10/17/15 Shonda Tucker, ShanaD [address] [place] [address] Pharmacist Internal Medicine 02/22/25 documented as of this encounter
--- OUTSIDE RECORDS SUMMARY | 2025-03-22 12:23 | XMS_ITS | Encounter Summary ---
Author Organization [employer] Address [address]t [place] [address] Care Team Providers Care Deliver Driver Name Role Phone Liza Barboza MD Primary Care Provider [phone] Shonda Tucker PharmD Unavailable [phone] Encounter Details Date Type Department Care Team (Latest Contact Info) Description 03/22/2025 Travel Social History Tobacco Use Types Packs/Day [...] [facility] MED & PEDS [address] [place] [address] Liza Barboza MD 505 [place] [address] 04/18/2025 11:00 AM EDT Telemedicine [facility] MED & PEDS [address] [place] [address] Shonda Tucker PharmD 230 [place] [address] documented as of this encounter Visit Diagnoses Not on filedocumented in this encounter Additional Health Concerns Assessment Noted Time PHQ-9 Depression Total Score: 1 03/25/20 23 11:11 AM EDT documented as of this encounter Care Teams Deliver Driver Relationship Specialty Start Date End Date Liza Barboza MD 230 [place] [address] PCP - General Family Medicine 10/17/15 Shonda Tucker PharmD [address] [place] [address] Pharmacist Internal Medicine 02/22/25 documented as of this encounter
--- OUTSIDE RECORDS SUMMARY | 2025-03-22 12:23 | XMS_ITS | Encounter Summary ---
Author Organization [employer] Address [address] [place] [address] Care Team Providers Care Electric Trucker Name Role Phone Liza Barboza MD Primary Care Provider [phone] Shodna Tucker PharmD Unavailable [phone] Reason for Visit * Reason Onset Date Comments Pre-op Visit 01/31/2024 Encounter Details Date Type Department Care Team ([facility] Contact Info) Description 01/31/2024 Telephone [facility] MEDICINE [address] [place] [address] Liza Barboza MD [address] [place], [place] [phone] Pre-op Visit Social History Tobacco Use Types [...] YES Surgeon's name: Valerie Oshea Facility name: [facility] Surgeon's office number: [phone] Ext [phone] Surgeon's office fax number: [phone] Contact name (person you spoke with): Maddie Last office note from surgeon requested. documented in this encounter Plan of Treatment Upcoming Encounters Date Type Department Care Team ([facility] st Contact Info) Description 04/06/2025 11:30 AM EDT Office Visit [facility] MED & PEDS [address] [place] [address] Liza Barboza MD [address] [place] [address] 04/18/2025 11:00 AM EDT Telemedicine [facility] CH[facility] MED & PEDS [address] [place] [address] Shonda Tucker PharmD [address] [place] [address] documented as of this encounter Visit Diagnoses Not on filedocumented in this encounter Additional Health Concerns Assessment Noted Time PHQ-9 Depression Total Score: 1 03/25/20 23 11:11 AM EDT documented as of this encounter Care Teams Electric Trucker Relationship Specialty Start Date End Date Liza Barboza MD [address] [place] [address] PCP - General Family Medicine 10/17/15 Shonda Tucker, Merry [address] [place] [address] Pharmacist Internal Medicine 02/22/25 documented as of this encounter
--- OUTSIDE RECORDS SUMMARY | 2025-03-22 12:23 | XMS_ITS | Encounter Summary ---
Author Organization [employer] Address [address] [facility] 7 [place] [address] Care Team Providers Care Bookbinder Apprentice Name Role Phone Liza Barboza MD Primary Care Provider [phone] Shonda Tucker PharmD Unavailable [phone] Reason for Visit * Reason Comments Med Change Request Encounter Details Date Type Department Care Team ([facility] Contact Info) Description 06/13/2024 Refill [facility] CHC MED & PEDS [address] [place] [address] Zaida Cortes MD [address] [place] [address] Social History Tobacco Use Types Packs/Day Years [...] 11:30 AM EDT Office Visit [facility] [address] [place] [address] Liza Barboza MD [address] [place] [address] 04/18/2025 11:00 AM EDT Telemedicine [facility] [address] [place] [address] Shonda Tucker PharmD [address] [place] [address] documented as of this encounter Visit Diagnoses Not on filedocumented in this encounter Additional Health Concerns Assessment Noted Time PHQ-9 Depression Total Score: 1 03/25/20 23 11:11 AM EDT documented as of this encounter Care Teams Bookbinder Apprentice Relationship Specialty Start Date End Date Liza Barboza MD [address] [place], [place] [phone] PCP - General Family Medicine 10/17/15 Shonda Tucker PharmD [address] [place] [address] Pharmacist Internal Medicine 02/22/25 documented as of this encounter
--- OUTSIDE RECORDS SUMMARY | 2025-03-22 12:24 | XMS_ITS | Encounter Summary ---
Author Organization [employer] Address [address] [place] [address] Care Team Providers Care Technical Support Intern Name Role Phone Liza Barboza MD Primary Care Provider [phone] Shonda Tucker PharmD Unavailable [phone] Reason for Visit * Reason Onset Date Comments Medication Question 08/29/2024 Encounter Details Date Type Department Care Team ([facility] Contact Info) Description 08/29/2024 Telephone [facility] MEDICINE [address] [place] [address] Liza Barboza MD [address] [place], [place] [phone] Medication Question Social History Tobacco Use Types [...] EDT TC placed to pt with a custodial maintenance worker in regards to request for increase in [...] Description 04/06/2025 11:30 AM EDT Office Visit [facility] MED & PEDS [address] [place] [address] Liza Barboza MD [address] [place] [address] 04/18/2025 11:00 AM EDT Telemedicine [facility] MED & PEDS [address] [place] [address] Shonda Tucker PharmD [address] [place] [address] documented as of this encounter Visit Diagnoses Not on filedocumented in this encounter Additional Health Concerns Assessment Noted Time PHQ-9 Depression Total Score: 1 03/25/20 23 11:11 AM EDT documented as of this encounter Care Teams Technical Support Intern Relationship Specialty Start Date End Date Liza Barboza MD [address] [place] [address] PCP - General Family Medicine 10/17/15 Shonda Tucker PharmD [address] [place] [phone] Pharmacist Internal Medicine 02/22/25 documented as of this encounter
--- OUTSIDE RECORDS SUMMARY | 2025-03-22 12:24 | XMS_ITS | Clinical Summary ---
Author Organization [facility] [address] [place] [address] [place] [phone] Phone Care Team Providers Care Mapping Pilot Name Role Phone Liza Barboza MD Primary Care Provider [phone] Allergies Active Allergy Reactions Criticality Noted Date [...] mg by mouth 3 times daily. Active Zepbound 10 mg/0.5 mL injection Inject under the skin 1 (one) time per week. 03/09/2025 Active hydroCHLOROthiaz jeanmarie (HYDRODIURIL) 25 mg tablet Take 1 tablet (25 mg total) by mouth 1 (one) time each day. Active Active Problems Problem Noted Date Diagnosed Date HTN (hypertension) 04/19/2014 Encounters Date Type Department Care Team Description 03/13/2025 3:30 PM EDT Office Visit [facility]stetrics [facility] Gyne[facility] [address] [phone] Estefanía Arteaga CNM Encounter for gynecological examination without abnormal finding (Primary Dx); test negative; Screen for STD (sexually transmitted disease) from Last 3 Months Immunizations Name Administration Dates Next Due Td Tetanus diptheria (Tdvax) 7yo and older 03/01 Surgical History Surgery Date Site/Laterality Comments SECTION PROCEDURE: HISTORICAL DELIVERY; COMMENT: x 3 OTHER SURGICAL HISTORY PROCEDURE: ---- OTHER ----; COMMENT: left axillary gland removed Medical History Medical History Date Comments HTN (hypertension) DX:HTN (hyper tension) Thyroid disorder DX:Thyroid diso rder Other vxzwd-fmn-gggfh infants DX:Other ohyxa-kvz-ncwho infants; COMMENT: cardiomegaly dx by sonogram with [...] = 0.6 oz pur e alcohol) Comments No Sex and Gender Information Value Date Recorded Sex Assigned at Not on file Legal Sex Female 4:51 AM EST Gender Identity Not on file Sexual Orientation Not on file Obstetrics History Para Term AB IAB SAB Ectopic Multiple Livin g Live Births 4 3 3 0 1 1 3 Date Outcome GA Total Labor Labor/2nd/3rd Weight Sex Type Anes PTL Dawn A1 A5 Name Clin Term Term Term SAB Last Filed Vital Signs Vital Sign Reading Time Taken Comments Blood Pressure 132/75 03/13/2025 3:52 PM EDT Pulse 89 03/13/2025 3:52 PM EDT Temperature - - Respiratory Rate 14 03/13/2025 3:52 PM EDT Oxygen Saturation - - Inhaled Oxygen Concentration - - Weight 90.2 kg (198 lb 12.8 oz) 03/13/2025 3:52 PM EDT Height 162.6 cm (5' 4 ) 03/13/2025 3:52 PM EDT Body Mass Index 34.12 03/13/2025 3:52 PM EDT Plan of Treatment Health Maintenance Due Date Last Done Comments Hepatitis A Vaccines (1 of 2 - Risk 2-dose series) 1992 Colorectal Cancer Screening: Colonoscopy 10/10/2022 HIV Screening 10/10/2022 Social Influencers of Health Screening 10/10/2022 Pneumococcal Vaccine: 50+ Years (1 of 1 - PCV) 2023 Zoster Vaccines (1 of 2) 2023 Depression Screening 03/25/2024 03/25/2023 COVID-19 Vaccine (3 - season) 2024 04/02/2021, 03/05/2021 Influenza Vaccine (Season Ended) 2025 07/22/2015, 09/24/2014, 07/27/2011, Additional history exists DTaP,Tdap,and Td Vaccines (4 - Td or Tdap) 01/13/2026 01/14/2016, 07/30/2005, 03/01/2003 Hypertension/CHF/CAD Annual BMP Blood Test 02/23/2026 02/23/2025 Breast Cancer Screening 10/07/2026 10/07/20 24, 09/04/2023, 08/29/2022, Additional history exists Cholesterol Screening (Lipid Panel) 11/27/2029 11/27/2024, 03/23/2024, 11/03/2001 Cervical Cancer Screening: HPV 03/13/2030 03/13/2025, 12/10/2017 Hepatitis B Vaccines Completed 06/17/2018, 01/14/2016, 12/13/2015 [...] Procedure Name Priority Date/Time Associated Diagnosis Comments CHLAMYDIA TRACHOMATIS AND NEISSERIA GONORRHOEAE BY TMA, THINPREP Routine 03/13/2025 4:25 PM EDT Encounter for gynecological examination without abnormal finding PAP SMEAR Routine 03/13/2025 4:25 PM EDT Encounter for gynecological examination without abnormal finding HPV WITH REFLEX GENOTYPE Routine 03/13/2025 4:25 PM EDT Encounter for gynecological examination without abnormal finding TRICHOMONAS VAGINALIS PCR Routine 03/13/2025 4:25 PM EDT Encounter for gynecological examination without abnormal finding POC , URINE DIAGNOSTIC Routine 03/13/2025 4:03 PM EDT test negative MG MAMMO DIGITAL SCREENING W EAGLE BILAT Routine 10/07/2024 11:04 AM EST Encounter for screening mammogram for breast cancer LIPID PANEL Routine 11/03/2001 from Last 3 Months or Most Recently Relevant to Health Maintenance Results * Chlamydia trachomatis and neisseria gonorrhoeae by delroy thinprep (03/13/2025 4:25 PM EDT) N. gonorrhoeae, RNA Probe Negative Negative LAB MICROBIOLOGY METHOD 03/16/2025 1:[address] [facility] Chlamydia, RNA Probe Negative Negative LAB MICROBIOLOGY METHOD 03/16/2025 1:[address] [facility] Brushing/Spatula Cervix uteri structure / Unknown 03/13/2025 4:25 PM EDT 03/15/2025 6:29 AM EDT Estefanía Arteaga CNM LAB CYTOLOGY ORDERABLES Final Result [facility] [address] [place] [address], [place] [phone] * HPV with reflex genotype (03/13/2025 4:25 PM EDT) HPV Negative Negative LAB MICROBIOLOGY METHOD 03/19/2025 9:[address] [facility] Brushing/Spatula Cervix uteri structure / Unknown 03/13/2025 4:25 PM EDT 03/15/2025 6:29 AM EDT us Estefanía Arteaga CNM LAB MOLECULAR DIAGNOSTICS ORDE RABLES Final Result [facility] [address] [place] [address], * Trichomonas vaginalis molecular study (03/13/2025 4:25 PM EDT) Trichomonas vaginalis Negative Negative LAB MICROBIOLOGY METHOD 03/16/2025 1:[address] [facility] Brushing/Spatula Cervix uteri structure / Unknown 03/13/2025 4:25 PM EDT 03/15/2025 6:29 AM EDT us Estefanía Arteaga CNM LAB BLOOD ORDERABLES Final Res ult [facility] [address] [place] [address], * Pap smear (03/13/2025 4:25 PM EDT) Interpretation Negative for intraepithelial lesion or malignancy 03/19/2025 7:[address] [facility] General Categorization Negative 03/19/2025 7:[address] [facility] Specimen Adequacy Satisfactory for evaluation, endocervical/hinson sformation zone component present 03/19/2025 7:[address] [facility] Pap Methodology Liquid Based Pap Test 03/19/2025 7:[address] [facility] Disclaimer The Pap test is a screening test which carries an inherent false negative rate. These test results should be correlated with the patient's clinical findings and history. This Pap test was processed using an automated screening system. Technical cytopathology services provided by [facility], at [address] [place] [address] (CLIA # [id number]/Alberto Guardado MD, Publicity Director.) 03/19/2025 7:[address] [facility] Console Pap Interpretation Reported 03/19/2025 7:[address] [facility] Brushing/Spatula Cervix uteri structure / Unknown 03/13/2025 4:25 PM EDT 03/13/2025 4:25 PM EDT us Estefanía Arteaga CNM LAB CYTOLOGY ORDERABLES Final Result [facility] [address] [place] [address], [place] [phone] * POC , urine manually resulted (03/13/2025 4:03 PM EDT) HCG, Ur POC Negative Negative POC hCG Int QC Pass? Yes Yes Urine Urine specimen obtained by clean catch procedure / Unknown 03/13/2025 4:03 PM EDT us Estefanía Arteaga CNM POINT OF CARE TEST ENTER/EDIT ORDERABLES Final Result * MG Mammo Digital Screening w Eagle bilat (10/07/2024 11:04 AM EST) Anatomical Region Laterality Modality Breast Bilateral Mammography 10/09/2024 2:19 PM EST Impressions 10/09/2024 2:20 PM EST No mammographic evidence of malignancy. BREAST DENSITY: B - There are scattered areas of fibroglandular density. BI-RADS CATEGORY: 1 - NEGATIVE RECOMMENDATION: Screening bilateral mammogram is recommended in 1 year. MAMMO LOCATION: [facility], [address] [place] [address], [address], . -------- FINAL REPORT -------- Dictated By: Rebecca Hopper Dictated Date: 10/09/2024 14:19 ET Assigned Physician: Rebecca Hopper Reviewed and Electronically Signed By: Rebecca Hopper Signed Date: 10/09/2024 14:20 ET Workstation ID: [id number] Transcribed By: Self Edit Transcribed Date: 10/09/2024 [...] is recommended in 1 year. MAMMO LOCATION: [facility], [address] [place] [address], [address], . -------- FINAL REPORT -------- Dictated By: Rebecca Hopper Dictated Date: 10/09/2024 14:19 ET Assigned Physician: Rebecca Hopper Reviewed and Electronically Signed By: Rebecca Hopper Signed Date: 10/09/2024 14:20 ET Workstation ID: [id number] Transcribed By: Self Edit Transcribed Date: 10/09/2024 14:19 ET Liza Barboza MD IMG BI PROCEDURES Final Result * Lipid panel (11/03/2001) LDL/HDL Ratio 3 1 - 4 Triglycerides 42 10 - 140 mg/dL Cholesterol 159 10 - 200 mg/dL HDL 63 32 - 96 mg/dL LDL Cholesterol 88 62 - 185 mg/dL Blood Venous blood specimen / Unknown us Historical Provider LAB BLOOD ORDERABLES Darlene l Result from Last 3 Months or Most Recently Relevant to Health Maintenance Insurance MEDICAID - [place] Care Teams Mapping Pilot Relationship Specialty Start Date End Date Liza Barboza MD [address] [place] [id number] PCP - General 04/13/14
[2025-03-22 14:28] LABS: Anion Gap 16 (12-20); Blood Urea Nitrogen 15 mg/dL (9-16); Calcium 9.6 mg/dL (8.4-10.2); Carbon Dioxide 27 mmol/L (22-29); Chloride 99 mmol/L (96-108); Estimated Glomerular Filt Rate > 60; Glucose Random 90 mg/dL (60-115); Potassium 3.7 mmol/L (3.3-5.1); Sodium 138 mmol/L (135-145)
== END 2025-03-22 11:58 | disposition home or self-care (01) ==
LOC: HO.CHCLDS 11:57
PROVIDERS: Visit Provider Student in an Organized Health Care Education/Training Program
DX: I10 Essential (primary) hypertension (principal)
CPT/HCPCS: 36415; 80048

== ENCOUNTER 2025-04-23 10:51 | Outpatient (REF) | payer MEDICAID, SELFPAY ==
--- OUTSIDE RECORDS SUMMARY | 2025-04-23 12:19 | XMS_ITS | Encounter Summary ---
Author Organization [employer] Address [address] [facility] 7 [place] [address] Care Team Providers Care Spool Carrier Name Role Phone Liza Barboza MD Primary Care Provider [phone] Shonda Tucker PharmD Unavailable [phone] Reason for Visit * Reason Comments Med Change Request Encounter Details Date Type Department Care Team ([facility] Contact Info) Description 06/13/2024 Refill [facility] CHC MED & PEDS [address] [place] [address] Zaida Cortes MD [address] [place] [address] Social History Tobacco Use Types Packs/Day Years [...] as of this encounter Plan of Treatment Not on file documented as of this encounter Visit Diagnoses Not on filedocumented in this encounter Additional Health Concerns Assessment Noted Time PHQ-9 Depression Total Score: 1 03/25/20 23 11:11 AM EDT documented as of this encounter Care Teams Spool Carrier Relationship Specialty Start Date End Date Liza Barboza MD [address] [place] [address] PCP - General Family Medicine 10/17/15 Shonda Tucker PharmD [address] [place] [address] Pharmacist Internal Medicine 02/22/25 documented as of this encounter
== END 2025-04-23 10:52 | disposition home or self-care (01) ==
LOC: HO.CHCLDS 10:51
PROVIDERS: Visit Provider Student in an Organized Health Care Education/Training Program
DX: Z13.89 Encounter for screening for other disorder (principal)

== ENCOUNTER 2025-06-06 11:49 | Outpatient (REF) | payer MEDICAID, SELFPAY ==
--- OUTSIDE RECORDS SUMMARY | 2025-06-06 12:36 | XMS_ITS | Clinical Summary ---
Author Organization [facility] [address] [place] [address] [place] [phone] Phone Care Team Providers Care Manifold Builder Name Role Phone Liza Barboza MD Primary Care Provider [phone] Allergies Active Allergy Reactions Criticality Noted Date [...] PM EDT Office Visit Obstetrics and Gynecology [address] [phone] Estefanía Arteaga CNM Encounter for gynecological examination [...] tension) Thyroid disorder DX:Thyroid diso rder Other hoofg-wha-kexvh infants DX:Other mnnvn-lrr-rvpnq infants; COMMENT: cardiomegaly dx by sonogram with [...] 2023 Zoster Vaccines (1 of 2) 2023 COVID-19 Vaccine (3 - season) 2024 04/02/2021, 03/05/2021 Depression Screening 11/01/2024 Influenza Vaccine (#1) 2025 5, 09/24/2014, 07/27/2011, Additional history exists DTaP,Tdap,and [...] * Chlamydia trachomatis and neisseria gonorrhoeae by tma, thinprep (03/13/2025 4:25 PM EDT) N. gonorrhoeae, [...] Final Result [facility] [address] [place] [address], * HPV with reflex genotype (03/13/2025 4:25 PM EDT) HPV Negative Negative LAB MICROBIOLOGY METHOD 03/19/2025 9:[address] [facility] Brushing/Spatula Cervix uteri structure / Unknown 03/13/2025 4:25 PM EDT 03/15/2025 6:29 AM EDT us Estefanía Arteaga CNM LAB MOLECULAR DIAGNOSTICS ORDE RABLES Final Result [facility] [address] [place] [address], [place] [phone] * Trichomonas vaginalis molecular study (03/13/2025 4:25 PM EDT) Trichomonas vaginalis Negative Negative LAB MICROBIOLOGY METHOD 03/16/2025 1:[address] [facility] Brushing/Spatula Cervix uteri structure / Unknown 03/13/2025 4:25 PM EDT 03/15/2025 6:29 AM EDT us Estefanía Arteaga CNM LAB BLOOD ORDERABLES Final Res ult Performing Organization Address City/[facility]/ZIP Co de Phone Number [facility] [address] [place] [address], [place] [phone] * Pap smear (03/13/2025 4:25 PM EDT) [...] Technical cytopathology services provided by [facility], at [address] [place] [address] (CLIA # [id number]/Alberto Guardado MD, [employer] Diver.) 03/19/2025 7:[address] [facility] Console Pap Interpretation Reported 03/19/2025 7:[address] [facility] Brushing/Spatula Cervix uteri structure / Unknown 03/13/2025 4:25 PM EDT 03/13/2025 4:25 PM EDT us Estefanía Arteaga CNM LAB CYTOLOGY ORDERABLES Final Result Performing Organization Address City/State/[facility] Co de Phone Number [facility] [address] [place] [address], [place] [phone] * POC , urine manually resulted (03/13/2025 4:03 PM EDT) HCG, Ur POC Negative Negative POC hCG Int QC Pass? Yes Yes Urine Urine specimen obtained by clean catch procedure / Unknown 03/13/2025 4:03 PM EDT us Estefanía NORIEGA POINT OF CARE TEST ENTER/EDIT ORDERABLES Final [...] is recommended in 1 year. MAMMO LOCATION: [facility], [address] [place] [address], [address], . -------- FINAL REPORT -------- Dictated By: Rebecca Hopper Dictated Date: 10/09/2024 14:19 ET Assigned Physician: Rebecca Hopper Reviewed and Electronically Signed By: Rebecca Hopper Signed Date: 10/09/2024 14:20 ET Workstation ID: [id number] Transcribed By: Self Edit Transcribed Date: 10/09/2024 [...] is recommended in 1 year. MAMMO LOCATION: [facility], [address] [place] [address], [phone], . -------- FINAL REPORT -------- Dictated By: Rebecca Hopper Dictated Date: 10/09/2024 14:19 ET Assigned Physician: Rebecca Hopper Reviewed and Electronically Signed By: Rebecca Hopper Signed Date: 10/09/2024 14:20 ET Workstation ID: [id number] Transcribed By: Self Edit Transcribed Date: 10/09/2024 [...] Maintenance Insurance MEDICAID - [place] Care Teams Manifold Builder Relationship Specialty Start Date End Date Liza Barboza MD [address] [place] [id number] PCP - General 04/13/14
--- OUTSIDE RECORDS SUMMARY | 2025-06-06 12:36 | XMS_ITS | Encounter Summary ---
Author Organization [employer] Address [address] [facility] 7 [place] [address] Care Team Providers Care Market Intelligence Consultant Name Role Phone Liza Barboza MD Primary Care Provider [phone] Shonda Tucker PharmD Unavailable [phone] Reason for Visit * Reason Comments Med Change Request Encounter Details Date Type Department Care Team ([facility] Contact Info) Description 06/13/2024 Refill [facility] MED & PEDS [address] [place] [address] Zaida Cortes MD [address] [place] [address] Social History Tobacco Use Types Packs/Day Years [...] Care Team (Late st Contact Info) Description 09/05/2025 11:00 AM EST Medication Management [facility] MED & PEDS [address] [place] [address] Shonda Tucker PharmD [address] [place] [address] documented as of this encounter Visit Diagnoses Not on filedocumented in this encounter Additional Health Concerns Assessment Noted Time PHQ-9 Depression Total Score: 1 03/25/20 23 11:11 AM EDT documented as of this encounter Care Teams Market Intelligence Consultant Relationship Specialty Start Date End Date Liza Barboza MD [address] [place] [address] PCP - General Family Medicine 10/17/15 Shonda Tucker, PharmD [address] [place] [address] Pharmacist Internal Medicine 02/22/25 documented as of this encounter
--- OUTSIDE RECORDS SUMMARY | 2025-06-06 12:36 | XMS_ITS | Clinical Summary ---
Author Organization [facility] Address [address] [place] [id number] Phone Care Team Providers Care Inspector Air [employer] Name Role Phone Liza Barboza MD Primary Care Provider [phone] Allergies Active Allergy Reactions Criticality Noted Date Comments Codeine Palpitations Low 03/25/2023 Other Reaction(s): SHAKING, ANXIETY Nutritional Supplement-Fiber 08/31/2024 Other Reaction(s): MOUTH ITCHY,SWELLING Medications acetaminophen (TYLENOL) 500 MG tablet Take 1,000 mg by mouth every 8 (eight) hours as needed. 09/27/20 23 Active colestipol (COLESTID) 1 gram tablet Take 2 g by mouth. 03/23/20 24 Active cyclobenzaprine (FLEXERIL) 10 MG tablet Take 10 mg by mouth. 04/18/20 24 Active fluticasone propionate (FLONASE) 50 mcg/actuation nasal spray USE 1 SPRAY IN BOTH NOSTRILS TWICE A DAY FOR 2 MONTHS 05/26/20 24 Active levothyroxine (SYNTHROID, LEVOTHROID) 200 MCG tablet take 1 tablet by mouth before breakfast Active lisinopril (PRINIVIL,ZESTRI L) 20 MG tablet TOME WILLIS TABLETA TODOS LOS D EN LA HERMILO WARREN Active WEGOVY 0.25 mg/0.5 mL subcutaneous pen injection INJECT 0.25 MG'S SUBCUTANEOUSLY ONCE PER WEEK Active ursodioL (ACTIGALL) 500 MG tablet TOME 1 TABLETA POR V A ORAL SHIVANI VECES AL D A Active Social History Tobacco Use Types Packs/Day Years Used Date Smoking Tobacco: Never Smokeless Tobacco: Never Tobacco Cessation:Counseling Given: Not Answered Alcohol Use Standard Drinks/Week Comments Not Currently 0 (1 standard drink = 0.6 oz pur e alcohol) Education Answer Date Recorded Are you interested in more education? Not on dean e 07/11/2024 Are you concerned about learning? Not on file 07/11/2024 No 07/11/2024 No 07/11/2024 Digital Access Answer Date Recorded No 07/11/2024 No 07/11/2024 Reliable internet access at home? Not on file 07/11/2024 Device with a working camera? Not on file Comments Unknown Sex and Gender Information Value Date Recorded Sex Assigned at Not on file Legal Sex Female 1:04 PM EDT Gender Identity Not on file Sexual Orientation Not on file Last Filed Vital Signs Vital Sign Reading Time Taken Comments Blood Pressure - - Pulse - - Temperature - - Respiratory Rate - - Oxygen Saturation - - Inhaled Oxygen Concentration - - Weight 95.7 kg (211 lb) 08/31/2024 8:26 AM EDT Height 165.1 cm (5' 5 ) 08/31/2024 8:26 AM EDT Body Mass Index 35.11 08/31/2024 8:26 AM EDT Plan of Treatment Health Maintenance Due Date Last Done Comments CREATININE LEVEL 1973 POTASSIUM LEVEL 1973 TSH LEVEL 1973 DEPRESSION SCREENING 1985 HEPATITIS C SCREENING 1991 HIV ONE-TIME SCREENING (18-6 5 YEARS) 1991 PAP SMEAR 1994 SCREENING FOR DIABETES 2008 MAMMOGRAM 2013 COLOGUARD 2018 COLONOSCOPY 2018 COLORECTAL CANCER SCREENING 2018 FIT TEST 2018 FOBT 2018 SIGMOIDOSCOPY 2018 VIRTUAL COLONOSCOPY 2018 PNEUMOCOCCAL VACCINES (50+ years) (1 of 1 - PCV) 2023 ZOSTER VACCINES (1 of 2) 2023 COVID-19 VACCINE (3 - 2023-2 5 season) 2024 04/02/2021, 03/05/2021 Adult Td,Tdap Booster 01/13/2026 01/14/2016 , 07/30/2005, 03/01/2003 LIPID PANEL 03/23/2029 03/23/2024 SMOKING STATUS SCREENING (On ce After 26 Yrs) Completed 08/31/2024 HEPATITIS A VACCINES Aged Out No long er eligible based on patient's age to complete this topic HIB VACCINES Aged Out No longer eligi ble based on patient's age to complete this topic MENINGOCOCCAL VACCINES (ACWY) Aged Out No longer eligible based on patient's age to complete this topic MENINGOCOCCAL VACCINES (B) Aged Out N o longer eligible based on patient's age to complete this topic Medical Devices Not on file Insurance [facility] C3 ACO Care Teams Inspector Air Carrier Relationship Specialty Start Date End Date Liza Barboza MD [address] [place] [phone] PCP - General Family Medicine 04/28/24 Additional Source Comments The information contained in this document represents components of the legal health record. It is not the complete legal health record.[facility]
[2025-06-06 15:04] LABS: Albumin Level 4.2 g/dL (3.5-5.0); Alkaline Phosphatase 197 U/L (39-117); Anion Gap 12 (12-20); Aspartate Amino Transferase 41 U/L (5-31); Blood Urea Nitrogen 12 mg/dL (9-16); Calcium 9.3 mg/dL (8.4-10.2); Carbon Dioxide 28 mmol/L (22-29); Chloride 100 mmol/L (96-108); Cholesterol 189 mg/dL (<200); Estimated Glomerular Filt Rate > 60; HDL Cholesterol 73 mg/dL (>40); Potassium 4.0 mmol/L (3.3-5.1); Sodium 136 mmol/L (135-145); Total Protein 8.5 g/dL (6.5-8.0); Triglycerides 71 mg/dL (<150)
[2025-06-06 15:27] LABS: Alanine Aminotransferase 32 U/L (0-31)
== END 2025-06-06 11:50 | disposition home or self-care (01) ==
LOC: HO.CHCLDS 11:49
PROVIDERS: Visit Provider Student in an Organized Health Care Education/Training Program
DX: I10 Essential (primary) hypertension (principal); E66.811 Obesity, class 1; E03.9 Hypothyroidism, unspecified
CPT/HCPCS: 36415; 80048; 80061; 80076; 84443